=== PATIENT | female | born 1945 | race Caucasian/White ===

== ENCOUNTER 2018-11-03 11:10 | Inpatient (IN) | payer MEDICARE, OTHER ==
[~2018-11-03] VITALS: Ht 172.7 cm; Wt 136.0 kg
[2018-11-03] MEDS ORDERED: ipratropium/albuterol 3ml nebule NEB ONE (11:45)
[2018-11-03] MEDS ORDERED: levoFLOXACIN-Levaquin 750MG/D5 150 ML IV ONE (11:45)
[2018-11-03] MEDS ORDERED: methylPREDNISolone sod succ 125mg/2ml vial IV ONE (11:45)
[2018-11-03 12:17] LABS: BASOPHILS % (AUTO) 0.1 % (0-1); EOSINOPHILS % (AUTO) 0.1 % (0-6); HEMATOCRIT 34.9 % (35.0-45.0); HEMOGLOBIN 11.1 g/dl (12.0-16.0); LYMPHOCYTES # (AUTO) 0.5 X10'3 (1.1-4.8); LYMPHOCYTES % (AUTO) 5.2 % (21-51); MEAN CORPUSCULAR HEMOGLOBIN 26.8 PG (27.0-31.0); MEAN CORPUSCULAR HGB CONC 31.7 % (33.0-36.5); MEAN CORPUSCULAR VOLUME 84.6 FL (78-98); MEAN PLATELET VOLUME 7.6 FL (7.4-10.4); MONOCYTES # (AUTO) 0.2 X10'3 (0-0.9); MONOCYTES % (AUTO) 2.4 % (2-12); NEUTROPHILS # (AUTO) 8.2 X10'3 (1.8-7.7); NEUTROPHILS % (AUTO) 92.2 % (42-75); PLATELET COUNT 302 X10'3 (140-440); RED BLOOD COUNT 4.13 X10'6 (4.20-5.60); RED CELL DISTRIBUTION WIDTH 17.9 % (11.5-14.5); WHITE BLOOD COUNT 8.9 X10'3 (4.5-11.0)
[2018-11-03 12:32] LABS: ALANINE AMINOTRANSFERASE 27 U/L (12-78); ALBUMIN 3.2 G/DL (3.4-5.0); ALBUMIN/GLOBULIN RATIO 0.7 (1.1-1.5); ALKALINE PHOSPHATASE 110 IU/L (46-116); ANION GAP 12 (8-16); ASPARTATE AMINO TRANSFERASE 20 U/L (10-37); BILIRUBIN,TOTAL 1.5 MG/DL (0.1-1.0); BLOOD UREA NITROGEN 29 MG/DL (7-18); CALCIUM 8.9 MG/DL (8.5-10.1); CHLORIDE 97 MMOL/L (99-107); CREATININE 1.32 MG/DL (0.40-0.90); GLUCOSE 182 MG/DL (70-104); MAGNESIUM 1.7 MG/DL (1.5-2.4); POTASSIUM 4.4 MMOL/L (3.5-5.1); SODIUM 134 MMOL/L (135-145); TOTAL CARBON DIOXIDE 25.4 MMOL/L (24-32); TOTAL PROTEIN 8.1 G/DL (6.4-8.2); eGFR 40 ML/MIN
[2018-11-03 12:39] LABS: INR 1.2 INR; PARTIAL THROMBOPLASTIN TIME 37 SECONDS (22-32)
[2018-11-03] MEDS ORDERED: potassium Cl 20 mEq SR tablet PO PRN ×2 (13:20)
[2018-11-03] MEDS ORDERED: magnesium 4gm in 100ml NS 100 ML IV PRN (13:20)
[2018-11-03] MEDS ORDERED: acetaminophen 325mg tablet PO PRN (13:20)
[2018-11-03] MEDS ORDERED: potassium Cl 40MEQ/NS 500ml 500 ML IV PRN ×2 (13:20)
[2018-11-03] MEDS ORDERED: ondansetron/PF 4mg/2ml inj IV PRN (13:20)
[2018-11-03] MEDS ORDERED: magnesium Cl slow-release 64mg tablet PO PRN (13:20)
[2018-11-03] MEDS ORDERED: AMLODIPINE PO (13:52)
[2018-11-03] MEDS ORDERED: METF500T PO (13:53)
[2018-11-03] MEDS ORDERED: GLIP5TAB13 PO (13:55)
[2018-11-03] MEDS ORDERED: NOVALOG SQ ×2 (13:58→14:00)
[2018-11-03] MEDS ORDERED: LOSA25TA96 PO (14:01)
[2018-11-03] MEDS ORDERED: metoprolol PO (14:01)
[2018-11-03] MEDS ORDERED: provastatin PO (14:03)
[2018-11-03] MEDS ORDERED: APIX5TAB3 PO (14:03)
[2018-11-03] MEDS ORDERED: CHLO25TA2 PO (14:04)
[2018-11-03 16:05] LABS: CLARITY,URINE CLEAR (Clear); COLOR,URINE YELLOW (Yellow); GLUCOSE, URINE NEGATIVE (Neg); KETONES,URINE TRACE mg/dl (Neg); LEUKOCYTE ESTERASE ,URINE NEGATIVE (Neg); NITRITES, URINE NEGATIVE (Neg); OCCULT BLOOD,URINE NEGATIVE (Neg); PH,URINE 5.5 (4.8-8.0); PROTEIN,URINE 100 mg/dl (Neg); UROBILINOGEN,URINE 0.2 E.U/dL (0.2-1.0)
[2018-11-03 16:06] LABS: UA COLLECTION TYPE CLN CATCH MIDSTREAM
[2018-11-03 16:14] LABS: BACTERIA,URINE NONE SEEN /HPF (Neg); MUCUS STRANDS NONE SEEN /LPF (Neg); RBC,URINE 0-2 /HPF (0-2); SQUAMOUS EPITHELIAL CELL,UR FEW /LPF (FEW); WBC,URINE 0-4 /HPF (0-4)
--- NOTE | 2018-11-03 16:58 | NUR ---
Patient in room ED 11. I have received report from Cynthia MORALES in ER via phone and had the opportunity to ask questions and will assume patient care when patient arrives to the floor/ Cynthia will check patients blood sugar before bringing to the floor. .
[2018-11-03 17:30] VITALS: BP 142/75
[2018-11-03] MEDS ORDERED: dextrose ORAL solution 15 GM/59 ML bottle PO PRN (17:30)
[2018-11-03] MEDS ORDERED: dextrose 50%-water 50ml dispensing syringe IV PRN ×2 (17:30)
[2018-11-03] MEDS ORDERED: MESSAGE TO PHARMACY PO ONE (17:30)
[2018-11-03] MEDS ORDERED: glucagon, human recombinant 1mg kit SUBCUT PRN (17:30)
[2018-11-03 18:00] VITALS: BP 140/86
--- NOTE | 2018-11-03 18:41 | NUR ---
Problems reprioritized. Patient report given, questions answered & plan of care reviewed with Mera Jarrell RN.
[2018-11-03] MEDS: apixaban 5mg tablet PO SCH (19:47)
[2018-11-03] MEDS: heparin, porcine 5000 units/ml vial SQ SCH (19:49)
[2018-11-03] MEDS ORDERED: PRAVASTATIN 40 MG PO SCH (21:00)
[2018-11-03] MEDS: insulin Lispro (HumaLOG) vial - multi-dose SQ SCH (21:11)
[2018-11-03] MEDS: nystatin 15 GM powder TP SCH (21:12)
[2018-11-03] MEDS: pravastatin 40mg tablet PO SCH (21:12)
[2018-11-03] MEDS: insulin glargine (Lantus) pen - multi-dose SQ SCH (21:12)
[2018-11-03] MEDS: famotidine 20mg tablet PO SCH (21:12)
[2018-11-03] MEDS: benzocaine/menthol oral lozeng 1 EACH BOX MM PRN (22:41)
[2018-11-04] VITALS: BP 127/70
--- NOTE | 2018-11-04 00:15 | NUR ---
Pt belongings taken to safe. Receipt placed in chart. Receipt number [id number].
[2018-11-04] MEDS: benzocaine/menthol oral lozeng 1 EACH BOX MM PRN ×4 (02:09→19:19)
--- NOTE | 2018-11-04 04:30 | NUR ---
Sputum culture sent to lab.
--- NOTE | 2018-11-04 06:32 | NUR ---
Problems reprioritized. Patient report given, questions answered & plan of care reviewed with CARMEN Brown.
--- NOTE | 2018-11-04 06:40 | NUR ---
Patient in room [facility] 355. I have received report from Berta Jarrell RN and had the opportunity to ask questions and assume patient care.
[2018-11-04 07:02] LABS: BASOPHILS % (AUTO) 0 % (0-1); EOSINOPHILS # (AUTO) 0.1 X10'3 (0-0.9); EOSINOPHILS % (AUTO) 1.2 % (0-6); HEMATOCRIT 31.4 % (35.0-45.0); HEMOGLOBIN 9.9 g/dl (12.0-16.0); LYMPHOCYTES # (AUTO) 0.5 X10'3 (1.1-4.8); LYMPHOCYTES % (AUTO) 8.2 % (21-51); MEAN CORPUSCULAR HEMOGLOBIN 26.4 PG (27.0-31.0); MEAN CORPUSCULAR HGB CONC 31.6 % (33.0-36.5); MEAN CORPUSCULAR VOLUME 83.6 FL (78-98); MEAN PLATELET VOLUME 8.5 FL (7.4-10.4); MONOCYTES # (AUTO) 0.3 X10'3 (0-0.9); MONOCYTES % (AUTO) 4.1 % (2-12); NEUTROPHILS # (AUTO) 5.4 X10'3 (1.8-7.7); NEUTROPHILS % (AUTO) 86.5 % (42-75); PLATELET COUNT 278 X10'3 (140-440); RED BLOOD COUNT 3.76 X10'6 (4.20-5.60); RED CELL DISTRIBUTION WIDTH 18.5 % (11.5-14.5); WHITE BLOOD COUNT 6.3 X10'3 (4.5-11.0)
[2018-11-04 07:18] LABS: ALBUMIN 2.6 G/DL (3.4-5.0); ANION GAP 16 (8-16); BLOOD UREA NITROGEN 44 MG/DL (7-18); BUN/CREATININE RATIO 27.8 (6.6-38.0); CALCIUM 8.3 MG/DL (8.5-10.1); CHLORIDE 94 MMOL/L (99-107); CREATININE 1.58 MG/DL (0.40-0.90); GLUCOSE 286 MG/DL (70-104); POTASSIUM 4.8 MMOL/L (3.5-5.1); SODIUM 130 MMOL/L (135-145); TOTAL CARBON DIOXIDE 20.1 MMOL/L (24-32); eGFR 32 ML/MIN
[2018-11-04] MEDS: nystatin 15 GM powder TP SCH ×3 (07:58→20:33)
[2018-11-04] MEDS: metoprolol succinate 25mg (24-HOUR) SR. Tablet PO SCH (07:58)
[2018-11-04] MEDS: apixaban 5mg tablet PO SCH ×2 (07:58→20:32)
[2018-11-04 08:00] VITALS: BP 147/78
[2018-11-04] MEDS: K and/or MAG REPLACEMENT MC SCH (08:00)
[2018-11-04] MEDS ORDERED: amLODIPine 5mg tablet PO SCH (08:00)
[2018-11-04] MEDS: heparin, porcine 5000 units/ml vial SQ SCH (08:00)
[2018-11-04] MEDS ORDERED: levoFLOXACIN-Levaquin 750MG/D5 150 ML IV SCH (08:00)
[2018-11-04] MEDS ORDERED: levoFLOXACIN-Levaquin 500mg/D5 100 ML IV SCH (08:00)
[2018-11-04] MEDS ORDERED: AMLODIPINE 10 MG PO SCH (08:00)
[2018-11-04] MEDS: insulin Lispro (HumaLOG) vial - multi-dose SQ SCH ×3 (09:12→19:12)
[2018-11-04 11:00] VITALS: BP 131/65
[2018-11-04] MEDS ORDERED: levoFLOXACIN 250mg tablet PO SCH (11:00)
--- NOTE | 2018-11-04 13:50 | NUR ---
DM consult: Pt with A1c 7.4 seen at bedside. Pt states she takes her DM PO meds and insulin per rx and checks her BG levels 2 times a day and monitors her CHO intake to manage DM. Pt given written and verbal DM education with referral to outpatient DM class with RD contact information. Pt reports constipation and requests prune juice with breakfast tray tomorrow, d/w dietary. All patient's questions answered at this time. Will remain available. Addendum: 11/04/18 at [address] Amended: Links added.
[2018-11-04] MEDS ORDERED: furosemide 20 MG/2 ML vial IV ONE (18:05)
--- NOTE | 2018-11-04 18:22 | NUR ---
Problems reprioritized. Patient report given, questions answered & plan of care reviewed with CARMEN Patricio.
--- NOTE | 2018-11-04 18:23 | NUR ---
Patient in room [facility] 355. I have received report from MARJORIE MORALES and had the opportunity to ask questions and assume patient care.
[2018-11-04 19:00] VITALS: BP 126/79
[2018-11-04] MEDS ORDERED: magnesium hydroxide 30ml (MOM) UD suspension PO ONE (19:25)
[2018-11-04] MEDS: pravastatin 40mg tablet PO SCH (20:32)
[2018-11-04] MEDS: famotidine 20mg tablet PO SCH (20:33)
[2018-11-04] MEDS: insulin glargine (Lantus) pen - multi-dose SQ SCH (21:24)
[2018-11-04] MEDS: dextrose ORAL solution 15 GM/59 ML bottle PO PRN (22:47)
--- NOTE | 2018-11-04 22:47 | NUR ---
ACCU CHECK DONE PER REQUEST 59, GLUCOSE SHOT 15 GM GIVEN.
--- NOTE | 2018-11-04 23:01 | NUR ---
ACCU CHECK 85.
--- NOTE | 2018-11-04 23:49 | NUR ---
ACCU CHECK PER REQUEST 105.
[2018-11-05] VITALS: BP 126/67
[2018-11-05 05:35] LABS: BASOPHILS % (AUTO) 0.2 % (0-1); EOSINOPHILS # (AUTO) 0.2 X10'3 (0-0.9); EOSINOPHILS % (AUTO) 2.1 % (0-6); HEMOGLOBIN 9.4 g/dl (12.0-16.0); LYMPHOCYTES % (AUTO) 11.1 % (21-51); MEAN CORPUSCULAR HEMOGLOBIN 26.3 PG (27.0-31.0); MEAN CORPUSCULAR HGB CONC 31.4 % (33.0-36.5); MEAN CORPUSCULAR VOLUME 83.6 FL (78-98); MEAN PLATELET VOLUME 7.7 FL (7.4-10.4); MONOCYTES # (AUTO) 0.7 X10'3 (0-0.9); MONOCYTES % (AUTO) 7.7 % (2-12); NEUTROPHILS # (AUTO) 6.8 X10'3 (1.8-7.7); NEUTROPHILS % (AUTO) 78.9 % (42-75); PLATELET COUNT 283 X10'3 (140-440); RED BLOOD COUNT 3.58 X10'6 (4.20-5.60); RED CELL DISTRIBUTION WIDTH 18.4 % (11.5-14.5); WHITE BLOOD COUNT 8.6 X10'3 (4.5-11.0)
[2018-11-05 05:40] LABS: ALBUMIN 2.6 G/DL (3.4-5.0); ANION GAP 9 (8-16); BLOOD UREA NITROGEN 58 MG/DL (7-18); BUN/CREATININE RATIO 34.7 (6.6-38.0); CALCIUM 8.2 MG/DL (8.5-10.1); CHLORIDE 96 MMOL/L (99-107); CREATININE 1.67 MG/DL (0.40-0.90); GLUCOSE 100 MG/DL (70-104); MAGNESIUM 2.1 MG/DL (1.5-2.4); POTASSIUM 3.7 MMOL/L (3.5-5.1); SODIUM 130 MMOL/L (135-145); TOTAL CARBON DIOXIDE 24.7 MMOL/L (24-32); TROPONIN I < 0.04 NG/ML (0.0-0.05); eGFR 30 ML/MIN
--- NOTE | 2018-11-05 06:26 | NUR ---
Problems reprioritized. Patient report given, questions answered & plan of care reviewed with ARMAAN MORALES.
--- NOTE | 2018-11-05 06:34 | NUR ---
Patient in room [facility] 355. I have received report from Sheng MORALES and had the opportunity to ask questions and assume patient care.
[2018-11-05 07:00] VITALS: BP 138/74
[2018-11-05] MEDS: K and/or MAG REPLACEMENT MC SCH (08:00)
[2018-11-05] MEDS ORDERED: furosemide 20 MG/2 ML vial IV SCH (08:00)
[2018-11-05] MEDS: metoprolol succinate 25mg (24-HOUR) SR. Tablet PO SCH (08:57)
[2018-11-05] MEDS: nystatin 15 GM powder TP SCH ×3 (08:58→20:50)
[2018-11-05] MEDS: apixaban 5mg tablet PO SCH ×2 (08:58→19:48)
[2018-11-05] MEDS: insulin Lispro (HumaLOG) vial - multi-dose SQ SCH ×2 (09:08→13:47)
[2018-11-05 11:00] VITALS: BP 123/65
--- NOTE | 2018-11-05 11:25 | NUR ---
Patient requested her blood sugar to be check - blood sugar was 211 mg/dl when checked. Patient admitted that she is kind of stressed out with her being sick. She told me that her is in this hospital emergency room and wish to get an update about her 's condition. I discussed this with the charge nurse Leyla, she said patient can call the emergency room to speak to the nurse and get an update - this message was relayed to the patient. Bedside phone was provided to the patient
[2018-11-05] MEDS: azithromycin 250mg tablet PO SCH (12:36)
[2018-11-05] MEDS ORDERED: ipratropium/albuterol 3ml nebule NEB PRN (15:40)
--- NOTE | 2018-11-05 16:04 | NUR ---
Patient in room [facility] 355. I have received report from CARMEN Grijalva and had the opportunity to ask questions and assume patient care.
--- NOTE | 2018-11-05 16:16 | NUR ---
Problems reprioritized. Patient report given, questions answered & plan of care reviewed with Radha RN.
[2018-11-05 17:14] LABS: CLARITY,URINE CLEAR (Clear); COLOR,URINE STRAW (Yellow); GLUCOSE, URINE NEGATIVE (Neg); KETONES,URINE NEGATIVE (Neg); LEUKOCYTE ESTERASE ,URINE NEGATIVE (Neg); NITRITES, URINE NEGATIVE (Neg); OCCULT BLOOD,URINE TRACE-LYSED (Neg); PH,URINE 5.5 (4.8-8.0); PROTEIN,URINE NEGATIVE (Neg); UROBILINOGEN,URINE 0.2 E.U/dL (0.2-1.0)
[2018-11-05 17:19] LABS: UA COLLECTION TYPE NON-SPECIFIED
[2018-11-05 17:20] LABS: SODIUM,URINE RANDOM 40 MEQ/L
[2018-11-05 17:21] LABS: BACTERIA,URINE NONE SEEN /HPF (Neg); RBC,URINE NONE SEEN /HPF (0-2); SQUAMOUS EPITHELIAL CELL,UR FEW /LPF (FEW); WBC,URINE NONE SEEN /HPF (0-4)
[2018-11-05 17:24] LABS: TOTAL PROTEIN,URINE RANDOM < 6.0 MG/DL
[2018-11-05] MEDS: dextrose ORAL solution 15 GM/59 ML bottle PO PRN (17:24)
[2018-11-05 17:41] LABS: UA EOSINOPHILS NO EOS /HPF
[2018-11-05 18:00] VITALS: BP 137/70
--- NOTE | 2018-11-05 18:15 | NUR ---
Problems reprioritized. Patient report given, questions answered & plan of care reviewed with CARMEN Connolly.
--- NOTE | 2018-11-05 18:30 | NUR ---
Patient in room [facility] 355. I have received report from Radha MORALES and had the opportunity to ask questions and assume patient care. Pt eating dinner, comfortable and in no distress.
[2018-11-05] MEDS: lactobacillus rhamnosus 10,000 MMU CELLS/CAPSULE PO SCH (19:48)
[2018-11-05] MEDS: ipratropium/albuterol 3ml nebule NEB SCH (20:30)
[2018-11-05] MEDS: insulin glargine (Lantus) pen - multi-dose SQ SCH (20:49)
[2018-11-05] MEDS: famotidine 20mg tablet PO SCH (20:50)
[2018-11-05] MEDS: pravastatin 40mg tablet PO SCH (20:50)
[2018-11-06] VITALS: BP 146/79
[2018-11-06] MEDS: benzocaine/menthol oral lozeng 1 EACH BOX MM PRN ×2 (01:29→23:34)
[2018-11-06 06:24] LABS: ALBUMIN 2.6 G/DL (3.4-5.0); ANION GAP 9 (8-16); BLOOD UREA NITROGEN 47 MG/DL (7-18); BUN/CREATININE RATIO 31.3 (6.6-38.0); CALCIUM 8.3 MG/DL (8.5-10.1); CHLORIDE 97 MMOL/L (99-107); GLUCOSE 188 MG/DL (70-104); MAGNESIUM 2.2 MG/DL (1.5-2.4); POTASSIUM 3.4 MMOL/L (3.5-5.1); SODIUM 135 MMOL/L (135-145); TOTAL CARBON DIOXIDE 28.6 MMOL/L (24-32); eGFR 34 ML/MIN
[2018-11-06 06:29] LABS: BASOPHILS % (AUTO) 0.3 % (0-1); EOSINOPHILS # (AUTO) 0.2 X10'3 (0-0.9); EOSINOPHILS % (AUTO) 2.6 % (0-6); HEMATOCRIT 30.9 % (35.0-45.0); HEMOGLOBIN 9.9 g/dl (12.0-16.0); LYMPHOCYTES % (AUTO) 14.6 % (21-51); MEAN CORPUSCULAR HEMOGLOBIN 26.6 PG (27.0-31.0); MEAN CORPUSCULAR HGB CONC 31.9 % (33.0-36.5); MEAN CORPUSCULAR VOLUME 83.4 FL (78-98); MEAN PLATELET VOLUME 7.9 FL (7.4-10.4); MONOCYTES # (AUTO) 0.7 X10'3 (0-0.9); MONOCYTES % (AUTO) 9.4 % (2-12); NEUTROPHILS # (AUTO) 5.2 X10'3 (1.8-7.7); NEUTROPHILS % (AUTO) 73.1 % (42-75); PLATELET COUNT 303 X10'3 (140-440); RED CELL DISTRIBUTION WIDTH 18.1 % (11.5-14.5); WHITE BLOOD COUNT 7.1 X10'3 (4.5-11.0)
--- NOTE | 2018-11-06 06:29 | NUR ---
Problems reprioritized. Patient report given, questions answered & plan of care reviewed with Angi MORALES.
--- NOTE | 2018-11-06 06:45 | NUR ---
Patient in room [facility] 355. I have received report from CARMEN Connolly and had the opportunity to ask questions and assume patient care. Pt. sleeping currently and in no apparent distress. Items of frequent use in reach of pt.
[2018-11-06 07:00] VITALS: BP 151/82
[2018-11-06] MEDS: K and/or MAG REPLACEMENT MC SCH (08:00)
[2018-11-06] MEDS: ipratropium/albuterol 3ml nebule NEB SCH ×3 (08:29→20:16)
[2018-11-06] MEDS: insulin Lispro (HumaLOG) vial - multi-dose SQ SCH ×3 (08:35→18:52)
[2018-11-06] MEDS: lactobacillus rhamnosus 10,000 MMU CELLS/CAPSULE PO SCH ×2 (08:39→20:10)
[2018-11-06] MEDS: apixaban 5mg tablet PO SCH ×2 (08:40→20:10)
[2018-11-06] MEDS: nystatin 15 GM powder TP SCH ×3 (08:41→20:10)
[2018-11-06] MEDS: metoprolol succinate 25mg (24-HOUR) SR. Tablet PO SCH (08:41)
[2018-11-06] MEDS: azithromycin 250mg tablet PO SCH (11:10)
[2018-11-06 11:30] VITALS: BP 138/76
[2018-11-06] MEDS ORDERED: magnesium Cl slow-release 64mg tablet PO PRN (13:50)
[2018-11-06] MEDS ORDERED: potassium Cl 40MEQ/NS 500ml 500 ML IV PRN ×2 (13:50)
[2018-11-06] MEDS ORDERED: magnesium 4gm in 100ml NS 100 ML IV PRN (13:50)
[2018-11-06] MEDS ORDERED: potassium Cl 20 mEq SR tablet PO PRN (13:50)
[2018-11-06] MEDS: potassium Cl 20 mEq SR tablet PO PRN ×2 (14:12→18:49)
[2018-11-06 18:00] VITALS: BP 130/70
--- NOTE | 2018-11-06 18:34 | NUR ---
Patient in room [facility] 355. I have received report from Angi MORALES and had the opportunity to ask questions and assume patient care. Patient comfortably watching TV, in no distress.
--- NOTE | 2018-11-06 18:35 | NUR ---
Problems reprioritized. Patient report given, questions answered & plan of care reviewed with CARMEN Connolly. Patient sitting up at side of bed and just finished eating dinner. Patient alert, oriented, and in no apparent distress at this time. Items of frequent use in reach of patient including call light.
[2018-11-06] MEDS: pravastatin 40mg tablet PO SCH (20:10)
[2018-11-06] MEDS: famotidine 20mg tablet PO SCH (20:10)
[2018-11-06] MEDS: insulin glargine (Lantus) pen - multi-dose SQ SCH (21:11)
[2018-11-07] VITALS: BP 142/86
--- NOTE | 2018-11-07 06:12 | NUR ---
Problems reprioritized. Patient report given, questions answered & plan of care reviewed with Angi MORALES.
[2018-11-07 06:20] LABS: BASOPHILS % (AUTO) 0.3 % (0-1); EOSINOPHILS # (AUTO) 0.2 X10'3 (0-0.9); EOSINOPHILS % (AUTO) 2.9 % (0-6); HEMATOCRIT 31.1 % (35.0-45.0); HEMOGLOBIN 9.9 g/dl (12.0-16.0); LYMPHOCYTES # (AUTO) 1.2 X10'3 (1.1-4.8); LYMPHOCYTES % (AUTO) 18.6 % (21-51); MEAN CORPUSCULAR HEMOGLOBIN 26.7 PG (27.0-31.0); MEAN CORPUSCULAR HGB CONC 31.8 % (33.0-36.5); MEAN CORPUSCULAR VOLUME 83.8 FL (78-98); MEAN PLATELET VOLUME 7.8 FL (7.4-10.4); MONOCYTES # (AUTO) 0.5 X10'3 (0-0.9); MONOCYTES % (AUTO) 8.5 % (2-12); NEUTROPHILS # (AUTO) 4.3 X10'3 (1.8-7.7); NEUTROPHILS % (AUTO) 69.7 % (42-75); PLATELET COUNT 305 X10'3 (140-440); RED BLOOD COUNT 3.72 X10'6 (4.20-5.60); RED CELL DISTRIBUTION WIDTH 18.2 % (11.5-14.5); WHITE BLOOD COUNT 6.2 X10'3 (4.5-11.0)
--- NOTE | 2018-11-07 06:30 | NUR ---
Patient in room [facility] 355. I have received report from CARMEN Connolly and had the opportunity to ask questions and assume patient care. Patient resting comfortably at this time. Items of frequent use including call light are in reach of the patient.
[2018-11-07 06:34] LABS: ALBUMIN 2.7 G/DL (3.4-5.0); ANION GAP 9 (8-16); BLOOD UREA NITROGEN 38 MG/DL (7-18); BUN/CREATININE RATIO 29.2 (6.6-38.0); CALCIUM 8.9 MG/DL (8.5-10.1); CHLORIDE 102 MMOL/L (99-107); GLUCOSE 206 MG/DL (70-104); MAGNESIUM 2.1 MG/DL (1.5-2.4); POTASSIUM 3.6 MMOL/L (3.5-5.1); SODIUM 140 MMOL/L (135-145); TOTAL CARBON DIOXIDE 29.3 MMOL/L (24-32); eGFR 40 ML/MIN
[2018-11-07 07:02] VITALS: BP 154/69
[2018-11-07] MEDS: K and/or MAG REPLACEMENT MC SCH (08:00)
--- NOTE | 2018-11-07 08:45 | NUR ---
Sugar of 203 at 0700 qualifies patient to be bumped to a level 4. However, in the past patient has dropped drastically with large amounts of insulin. Patient will be treated as a level 3 instead this morning.
[2018-11-07] MEDS: insulin Lispro (HumaLOG) vial - multi-dose SQ SCH ×2 (08:50→18:50)
[2018-11-07] MEDS: apixaban 5mg tablet PO SCH ×2 (08:52→20:10)
[2018-11-07] MEDS: lactobacillus rhamnosus 10,000 MMU CELLS/CAPSULE PO SCH ×2 (08:52→20:10)
[2018-11-07] MEDS: nystatin 15 GM powder TP SCH ×3 (08:53→21:04)
[2018-11-07] MEDS: metoprolol succinate 25mg (24-HOUR) SR. Tablet PO SCH (08:53)
[2018-11-07] MEDS: ipratropium/albuterol 3ml nebule NEB SCH ×3 (09:00→20:29)
--- NOTE | 2018-11-07 09:59 | NUR ---
Patient desaturates with exertion. Patient walked to bathroom without oxygen and oxygen saturation went from 97% to 82%. 1L of O2 via NC was applied and saturation went back up to 95%. Patient needs 1L NC when moving around.
[2018-11-07 10:57] VITALS: BP 143/76
[2018-11-07] MEDS ORDERED: magnesium hydroxide 30ml (MOM) UD suspension PO ONE (11:15)
--- NOTE | 2018-11-07 12:00 | NUR ---
Patients 1200 blood glucose was 57 on the left hand and 59 on the right hand. A 15 g Glucose shot was given at 12:15 and blood sugar was rechecked at 12:30 and came up to 86. Patient is now moved from a level 3 back down to a level 1.
[2018-11-07] MEDS: azithromycin 250mg tablet PO SCH (12:04)
[2018-11-07] MEDS: dextrose ORAL solution 15 GM/59 ML bottle PO PRN (12:14)
--- NOTE | 2018-11-07 12:35 | NUR ---
Initial: Pt admitted with SOB, possible acute CHF exacerbation per MD notes. S/p chest x-ray that shows pulmonary vascular congestion and pulmonary edema, small bilateral pleural effusion per MD notes. Pt also s/p IV diuresis IV Lasix per MD notes. No new documented wt to assess at this time. Pt currently on heart healthy CHO controlled diet with documented PO intake 100% meeting nutrient needs. LBM 11/03, MoM just given 11/07. Per physical assessment pt denies GI symptoms. Will continue to follow and monitor need for additional bowel care. Recommendations: 1) Continue with heart healthy CHO controlled diet 2) Monitor need for additional bowel care 3) Wt per rx Addendum: 11/07/18 at [address] Amended: Links added.
--- NOTE | 2018-11-07 14:01 | NUR ---
Patient blood glucose check of 86 after dropping and being treated for hypoglycemia and patient is now a level 1. Patient ate 65 grams of carbs at lunch and this would qualify her for 4 units of insulin. Insulin will be held due to an earlier drop of sugar from 203 to 57. Will recheck sugar at 1700.
[2018-11-07 18:00] VITALS: BP 159/87
--- NOTE | 2018-11-07 18:27 | NUR ---
Problems reprioritized. Patient report given, questions answered & plan of care reviewed with CARMEN Connolly. Patient sitting up in bed eating dinner. Patient is alert, oriented and in no apparent distress at this time.
--- NOTE | 2018-11-07 18:30 | NUR ---
Patient in room [facility] 355. I have received report from Angi MORALES and had the opportunity to ask questions and assume patient care. Patient sitting up in bed eating dinner, respirations even and unlabored, in no distress.
[2018-11-07] MEDS: pravastatin 40mg tablet PO SCH (20:10)
[2018-11-07] MEDS: famotidine 20mg tablet PO SCH (20:10)
[2018-11-07] MEDS: insulin glargine (Lantus) pen - multi-dose SQ SCH (21:03)
[2018-11-07] MEDS: benzocaine/menthol oral lozeng 1 EACH BOX MM PRN (23:32)
--- NOTE | 2018-11-07 23:37 | NUR ---
Patient complaining of dry nose due to oxygen therapy. Oxygen already humidified, [place] Jelly applied to nares. Patient stated it felt much better.
[2018-11-08] VITALS: BP 156/74
[2018-11-08 05:41] LABS: BASOPHILS % (AUTO) 0.4 % (0-1); EOSINOPHILS # (AUTO) 0.2 X10'3 (0-0.9); EOSINOPHILS % (AUTO) 2.4 % (0-6); HEMATOCRIT 32.6 % (35.0-45.0); HEMOGLOBIN 10.6 g/dl (12.0-16.0); LYMPHOCYTES # (AUTO) 1.2 X10'3 (1.1-4.8); LYMPHOCYTES % (AUTO) 17.4 % (21-51); MEAN CORPUSCULAR HEMOGLOBIN 27.7 PG (27.0-31.0); MEAN CORPUSCULAR HGB CONC 32.4 % (33.0-36.5); MEAN CORPUSCULAR VOLUME 85.4 FL (78-98); MEAN PLATELET VOLUME 7.9 FL (7.4-10.4); MONOCYTES # (AUTO) 0.5 X10'3 (0-0.9); MONOCYTES % (AUTO) 7.3 % (2-12); NEUTROPHILS % (AUTO) 72.5 % (42-75); PLATELET COUNT 310 X10'3 (140-440); RED BLOOD COUNT 3.82 X10'6 (4.20-5.60); RED CELL DISTRIBUTION WIDTH 17.5 % (11.5-14.5); WHITE BLOOD COUNT 6.9 X10'3 (4.5-11.0)
[2018-11-08 05:49] LABS: ALBUMIN 2.7 G/DL (3.4-5.0); ANION GAP 7 (8-16); BLOOD UREA NITROGEN 29 MG/DL (7-18); CALCIUM 8.6 MG/DL (8.5-10.1); CHLORIDE 103 MMOL/L (99-107); CREATININE 1.21 MG/DL (0.40-0.90); GLUCOSE 198 MG/DL (70-104); MAGNESIUM 2.2 MG/DL (1.5-2.4); POTASSIUM 3.8 MMOL/L (3.5-5.1); SODIUM 140 MMOL/L (135-145); TOTAL CARBON DIOXIDE 30.5 MMOL/L (24-32); eGFR 44 ML/MIN
--- NOTE | 2018-11-08 06:22 | NUR ---
Problems reprioritized. Patient report given, questions answered & plan of care reviewed with Leyla MORALES.
--- NOTE | 2018-11-08 06:23 | NUR ---
Patient in room [facility] 355. I have received report from CARMEN Connolly and had the opportunity to ask questions and assume patient care.
[2018-11-08 07:00] VITALS: BP 126/84
[2018-11-08] MEDS: ipratropium/albuterol 3ml nebule NEB SCH (07:45)
[2018-11-08] MEDS: K and/or MAG REPLACEMENT MC SCH (08:00)
[2018-11-08] MEDS: apixaban 5mg tablet PO SCH (08:39)
[2018-11-08] MEDS: metoprolol succinate 25mg (24-HOUR) SR. Tablet PO SCH (08:39)
[2018-11-08] MEDS: nystatin 15 GM powder TP SCH ×2 (08:40→14:12)
[2018-11-08] MEDS: lactobacillus rhamnosus 10,000 MMU CELLS/CAPSULE PO SCH (08:40)
[2018-11-08] MEDS: insulin Lispro (HumaLOG) vial - multi-dose SQ SCH ×2 (08:46→14:16)
[2018-11-08 11:00] VITALS: BP 146/86
[2018-11-08] MEDS: azithromycin 250mg tablet PO SCH (11:22)
[2018-11-08] MEDS: benzocaine/menthol oral lozeng 1 EACH BOX MM PRN ×2 (11:24→18:41)
--- NOTE | 2018-11-08 11:55 | NUR ---
O2 Sat at rest on room air:_86__% If below 89%: Recovery O2 Sat at rest on _1__LPM:__92_%: via___NC (mask/nasal cannula, etc..) No further documentation is necessary. If O2 Sat did not drop below 89% on room air,ambulate patient on room air. O2 Sat while ambulating on room air:___% Recovery O2 Sat while ambulating on ___LPM:___% No further documentation is necessary. If patient does not drop below 89% while ambulating, he/she does not qualify for home O2.
[2018-11-08] MEDS ORDERED: AZI25OT PO (16:25)
--- NOTE | 2018-11-08 17:00 | NUR ---
Pt accompanied by friend awaiting to be taken down by WC to car. Reviewed DC instructions with patient, telemetry box removed, IV had previously been removed on day shift. Reviewed belongings with patient, all in possesion except wallet which had been checked into safe. Nurses aid to take pt to get wallet prior to wheeling out to car. Patient also had new O2 delivery system at her side. Patient A&O, safe for discharge.
== END 2018-11-08 19:22 | disposition home or self-care (01) | DRG 682 ==
LOC: ER 11:11 → ED HOLD 13:24 → SUR 3N 17:14
PROVIDERS: ADMIT Internal Medicine; ATTEND Family Medicine
DX: N17.9 Acute kidney failure, unspecified (principal); J18.9 Pneumonia, unspecified organism; J96.01 Acute respiratory failure with hypoxia; I50.23 Acute on chronic systolic (congestive) heart failure; I13.0 Hypertensive heart and chronic kidney disease with heart failure and stage 1 through stage 4 chronic kidney disease, or unspecified chronic kidney disease; Z68.42 Body mass index [BMI] 45.0-49.9, adult; J81.1 Chronic pulmonary edema; J20.9 Acute bronchitis, unspecified; E11.22 Type 2 diabetes mellitus with diabetic chronic kidney disease; N18.9 Chronic kidney disease, unspecified; E66.01 Morbid (severe) obesity due to excess calories; E78.5 Hyperlipidemia, unspecified; I48.2 Chronic atrial fibrillation; Z79.899 Other long term (current) drug therapy; Z79.01 Long term (current) use of anticoagulants; Z87.891 Personal history of nicotine dependence; Z85.038 Personal history of other malignant neoplasm of large intestine
CPT/HCPCS: 36415; 71046; 76775; 80048; 80053; 81001; 82570; 82948; 83036; 83605; 83735; 83880; 84145; 84156; 84300; 84484; 85025; 85610; 85730; 87040; 87070; 87207; 87502; 87503; 93005; 93306; 94640; 94760; 96365; 96375; 99285; G0378; J1644; J1815; J1940; J1956; J2930

== ENCOUNTER 2018-12-04 12:49 | Inpatient (IN) | payer MEDICARE, OTHER ==
[~2018-12-04] VITALS: Ht 172.7 cm; Wt 137.6 kg
[~2018-12-04 12:49] MED LIST: AMLODIPINE PO; APIX5TAB3 PO; AZI25OT PO; GLIP5TAB13 PO; LOSA25TA96 PO; METF500T PO; NOVALOG SQ; metoprolol PO; provastatin PO
[2018-12-04 13:55] LABS: ALANINE AMINOTRANSFERASE 30 U/L (12-78); ALBUMIN 3.1 G/DL (3.4-5.0); ALBUMIN/GLOBULIN RATIO 0.7 (1.1-1.5); ALKALINE PHOSPHATASE 98 IU/L (46-116); ANION GAP 9 (8-16); ASPARTATE AMINO TRANSFERASE 20 U/L (10-37); BILIRUBIN,TOTAL 1.3 MG/DL (0.1-1.0); BLOOD UREA NITROGEN 34 MG/DL (7-18); BUN/CREATININE RATIO 25.4 (6.6-38.0); CALCIUM 9.2 MG/DL (8.5-10.1); CHLORIDE 103 MMOL/L (99-107); CREATININE 1.34 MG/DL (0.40-0.90); GLUCOSE 181 MG/DL (70-104); SODIUM 139 MMOL/L (135-145); TOTAL CARBON DIOXIDE 27.4 MMOL/L (24-32); TOTAL PROTEIN 7.6 G/DL (6.4-8.2); eGFR 39 ML/MIN
[2018-12-04 13:58] LABS: BASOPHILS % (AUTO) 0.5 % (0-1); EOSINOPHILS # (AUTO) 0.2 X10'3 (0-0.9); EOSINOPHILS % (AUTO) 2.1 % (0-6); HEMATOCRIT 33.2 % (35.0-45.0); HEMOGLOBIN 10.7 g/dl (12.0-16.0); LYMPHOCYTES % (AUTO) 10.1 % (21-51); MEAN CORPUSCULAR HEMOGLOBIN 27.2 PG (27.0-31.0); MEAN CORPUSCULAR HGB CONC 32.3 g/dL (33.0-36.5); MEAN CORPUSCULAR VOLUME 84.3 FL (78-98); MEAN PLATELET VOLUME 7.8 FL (7.4-10.4); MONOCYTES # (AUTO) 0.4 X10'3 (0-0.9); MONOCYTES % (AUTO) 4.1 % (2-12); NEUTROPHILS # (AUTO) 7.8 X10'3 (1.8-7.7); NEUTROPHILS % (AUTO) 83.2 % (42-75); PLATELET COUNT 332 X10'3 (140-440); RED BLOOD COUNT 3.94 X10'6 (4.20-5.60); RED CELL DISTRIBUTION WIDTH 18.8 % (11.5-14.5); WHITE BLOOD COUNT 9.4 X10'3 (4.5-11.0)
[2018-12-04] MEDS ORDERED: ipratropium/albuterol 3ml nebule NEB ONE (14:40)
[2018-12-04 15:04] LABS: INR 1.2 INR
[2018-12-04] MEDS ORDERED: METO-411 PO (15:38)
[2018-12-04] MEDS ORDERED: INSU10VI SQ ×2 (15:38)
[2018-12-04] MEDS ORDERED: AMLO-317 PO (15:39)
[2018-12-04] MEDS ORDERED: PRAV40TA3 PO (15:39)
[2018-12-04] MEDS ORDERED: LOSA100T57 PO (15:39)
[2018-12-04] MEDS ORDERED: METF-438 PO (15:39)
[2018-12-04] MEDS ORDERED: APIX5TAB3 PO (15:41)
[2018-12-04] MEDS ORDERED: GLIP5TAB13 PO (15:41)
[2018-12-04] MEDS ORDERED: furosemide 10 MG/1 ML 10ml inj IV ONE (16:00)
[2018-12-04] MEDS ORDERED: ipratropium/albuterol 3ml nebule NEB PRN (17:10)
[2018-12-04] MEDS ORDERED: MESSAGE TO PHARMACY PO ONE (17:10)
[2018-12-04] MEDS ORDERED: magnesium Cl slow-release 64mg tablet PO PRN (17:10)
[2018-12-04] MEDS ORDERED: magnesium 4gm in 100ml NS 100 ML IV PRN (17:10)
[2018-12-04] MEDS ORDERED: HYDROcodone/acetaminophen 5mg/325mg tablet PO PRN (17:10)
[2018-12-04] MEDS ORDERED: ondansetron/PF 4mg/2ml inj IV PRN (17:10)
[2018-12-04] MEDS ORDERED: HYDROcodone/acetaminophen 10/325mg tab PO PRN (17:10)
[2018-12-04] MEDS ORDERED: glucagon, human recombinant 1mg kit SUBCUT PRN (17:10)
[2018-12-04] MEDS ORDERED: potassium Cl 20 mEq SR tablet PO PRN ×2 (17:10)
[2018-12-04] MEDS ORDERED: dextrose 50%-water 50ml dispensing syringe IV PRN ×2 (17:10)
[2018-12-04] MEDS ORDERED: magnesium 2GM in 50ml NS 50 ML IV PRN (17:10)
[2018-12-04] MEDS ORDERED: acetaminophen 325mg tablet PO PRN ×2 (17:10)
[2018-12-04] MEDS ORDERED: mag hydrox/Alum hydrox/simeth 30ml oral suspension PO PRN (17:10)
[2018-12-04] MEDS ORDERED: potassium Cl 40MEQ/NS 500ml 500 ML IV PRN ×2 (17:10)
[2018-12-04] MEDS ORDERED: dextrose ORAL solution 15 GM/59 ML bottle PO PRN (17:10)
[2018-12-04 18:57] VITALS: BP 144/91
--- NOTE | 2018-12-04 19:00 | NUR ---
Pt arrived to floor. Walked to bed from hallway with cane and portable O2. VSS, no distress, resp even and unlabored.
[2018-12-04] MEDS: furosemide 20 MG/2 ML vial IV SCH (20:00)
[2018-12-04] MEDS ORDERED: LOSA25TA96 PO (20:47)
[2018-12-04] MEDS ORDERED: apixaban 5mg tablet PO ONE (21:00)
[2018-12-04] MEDS: insulin glargine (Lantus) pen - multi-dose SQ SCH (21:00)
[2018-12-04 22:00] VITALS: BP 152/81
[2018-12-04] MEDS: BUDESONIDE 0.25 MG/2 ML AMPUL.NEB IH SCH (22:07)
[2018-12-04] MEDS: ipratropium/albuterol 3ml nebule NEB SCH (22:08)
[2018-12-04] MEDS: pravastatin 40mg tablet PO SCH (22:59)
--- NOTE | 2018-12-04 23:32 | NUR ---
provided humidified air for pt per request.
[2018-12-05] MEDS: ipratropium/albuterol 3ml nebule NEB SCH ×7 (00:16→23:25)
[2018-12-05 02:00] VITALS: BP 144/78
[2018-12-05 02:46] LABS: BASOPHILS % (AUTO) 0.3 % (0-1); EOSINOPHILS # (AUTO) 0.2 X10'3 (0-0.9); EOSINOPHILS % (AUTO) 2.7 % (0-6); HEMATOCRIT 30.5 % (35.0-45.0); HEMOGLOBIN 9.8 g/dl (12.0-16.0); LYMPHOCYTES # (AUTO) 1.2 X10'3 (1.1-4.8); LYMPHOCYTES % (AUTO) 12.8 % (21-51); MEAN CORPUSCULAR HEMOGLOBIN 27.1 PG (27.0-31.0); MEAN CORPUSCULAR HGB CONC 32.2 g/dL (33.0-36.5); MEAN CORPUSCULAR VOLUME 84.2 FL (78-98); MEAN PLATELET VOLUME 7.9 FL (7.4-10.4); MONOCYTES # (AUTO) 0.4 X10'3 (0-0.9); MONOCYTES % (AUTO) 4.9 % (2-12); NEUTROPHILS # (AUTO) 7.2 X10'3 (1.8-7.7); NEUTROPHILS % (AUTO) 79.3 % (42-75); PLATELET COUNT 282 X10'3 (140-440); RED BLOOD COUNT 3.62 X10'6 (4.20-5.60); RED CELL DISTRIBUTION WIDTH 18.5 % (11.5-14.5); WHITE BLOOD COUNT 9.1 X10'3 (4.5-11.0)
[2018-12-05 03:02] LABS: ALBUMIN 2.9 G/DL (3.4-5.0); ANION GAP 11 (8-16); BLOOD UREA NITROGEN 34 MG/DL (7-18); BUN/CREATININE RATIO 23.6 (6.6-38.0); CALCIUM 8.9 MG/DL (8.5-10.1); CHLORIDE 102 MMOL/L (99-107); CREATININE 1.44 MG/DL (0.40-0.90); GLUCOSE 233 MG/DL (70-104); MAGNESIUM 1.8 MG/DL (1.5-2.4); SODIUM 139 MMOL/L (135-145); TOTAL CARBON DIOXIDE 25.6 MMOL/L (24-32); eGFR 36 ML/MIN
[2018-12-05 06:00] VITALS: BP 133/65
--- NOTE | 2018-12-05 06:15 | NUR ---
Problems reprioritized. Patient report given, questions answered & plan of care reviewed with CARMEN Daniels.
--- NOTE | 2018-12-05 06:24 | NUR ---
Patient in room PCU 3018. I have received report from Berta MORALES and had the opportunity to ask questions and assume patient care. Pt is alert and oriented X4, on 2L NC, in no apparent distress, will continue to monitor.
[2018-12-05] MEDS: furosemide 20 MG/2 ML vial IV SCH ×2 (07:20→19:25)
[2018-12-05] MEDS: apixaban 5mg tablet PO SCH ×2 (07:23→19:25)
[2018-12-05] MEDS: metoprolol succinate 25mg (24-HOUR) SR. Tablet PO SCH (07:25)
[2018-12-05] MEDS: K and/or MAG REPLACEMENT MC SCH (08:00)
[2018-12-05] MEDS ORDERED: amLODIPine 5mg tablet PO SCH (08:00)
--- NOTE | 2018-12-05 08:04 | NUR ---
PAGER ID: [phone] MESSAGE: [id number] Liberty Goss Pt condition change. HR 117-130's in a-fib, SPO2% drops to low 80's, please call Frances #[phone] Addendum: 12/05/18 at 0814 by Frances Cabrera RN Dr. Page called back, new order Metoprolol 5 mg IV push PRN q4h for HR > 110. However, he would like me to wait and see if HR will lower, considering she was just given her morning meds. Will continue to monitor. Addendum: 12/05/18 at 0932 by Frances Cabrera RN HR is now trending 100 to 104, in no apparent distress, will continue to monitor.
[2018-12-05] MEDS: BUDESONIDE 0.25 MG/2 ML AMPUL.NEB IH SCH ×2 (09:00→19:57)
[2018-12-05] MEDS: insulin Lispro (HumaLOG) vial - multi-dose SQ SCH ×4 (09:28→22:00)
[2018-12-05 11:52] VITALS: BP 127/71
[2018-12-05] MEDS: metoprolol tartrate 1mg/ml inj IV PRN ×2 (13:12→19:51)
[2018-12-05 15:00] VITALS: BP 128/83
--- NOTE | 2018-12-05 18:26 | NUR ---
Problems reprioritized. Patient report given, questions answered & plan of care reviewed with Tracee MORALES.
--- NOTE | 2018-12-05 18:41 | NUR ---
Student documentation: I have reviewed and agree with all interventions, assessments performed and documented by Kanika MORALES with the exception of the edits.
[2018-12-05 19:00] VITALS: BP 117/81
--- NOTE | 2018-12-05 19:09 | NUR ---
Patient in room PCU 3018. I have received report from sb rangel and had the opportunity to ask questions and assume patient care.
--- NOTE | 2018-12-05 19:38 | NUR ---
Patient in room PCU 3018. I have received report from Frances MORALES and had the opportunity to ask questions and assume patient care.
--- NOTE | 2018-12-05 19:45 | NUR ---
PAGER ID: [phone] MESSAGE: pcu [phone]; daniel tucker she is asking for cough drops. can we please get an order for this? thanks stan Addendum: 12/05/18 at 2010 by Terry Cast RN dr megan aponte with codeine q4h 10cc
--- NOTE | 2018-12-05 19:59 | NUR ---
Paged Dr. Patterson PAGER ID: [phone] MESSAGE: [phone] Liberty Goss has a dry, non-productive cough and a sore throat. May we put in an order for cough drops? Ian MORALES Tele [phone]
[2018-12-05] MEDS ORDERED: guaiFENesin/codeine phos 10ml UD oral syrup PO PRN (20:10)
[2018-12-05] MEDS: pravastatin 40mg tablet PO SCH (21:46)
[2018-12-05] MEDS: insulin glargine (Lantus) pen - multi-dose SQ SCH (22:01)
[2018-12-05 23:00] VITALS: BP 141/69
--- NOTE | 2018-12-05 23:35 | NUR ---
Paged Dr. Patterson, PAGER ID: [phone] MESSAGE: [id number] Rumalynne Goss. two way radio technician reports that patient's HR has been mostly in the 120s since start of shift. Last BP was 141/69. Respiratory Therapist is now reporting labored breathing with an audible wheeze. Please advise. Ian MORALES Tele [phone]
[2018-12-05] MEDS ORDERED: diltiazem CD 120mg capsule (once-daily) PO ONE (23:45)
--- NOTE | 2018-12-05 23:50 | NUR ---
PAGER ID: [phone] MESSAGE: PCU [phone]; ALFONSO ONEILL IS REALLY HAVING A HARD TIME BREATHING. YOU GAVE ANO ORDER FOR CARDIZEM 120MG PO BUT HER BREATHING IS VERY LABORED. LAST CHEST XRAY SHOWED SOME PLEURAL EFFUSIONS. THANKS DOMINGO Addendum: 12/06/18 at [address] RN DR AVILES MADE AWARE OF HER LAST ADMISSION LASIX CAUSING LEX; DR AVILES ORDERED LASIX 20MG ONCE NOW AND STATED THIS SHOULD NOT GREATLY AFFECT HER RENAL FUNCTION TOO MUCH. WILL CONTINUE TO MONITOR PATIENT GIVEN BREATHING TX; HR IN THE 130'S.
[2018-12-06] VITALS (13 sets, daily range): BP systolic 97–138; BP diastolic 53–97
[2018-12-06] MEDS ORDERED: furosemide 20 MG/2 ML vial IV ONE
[2018-12-06] MEDS: metoprolol tartrate 1mg/ml inj IV PRN (00:02)
--- NOTE | 2018-12-06 00:12 | NUR ---
Patient's HR has been in the 120's, she is having labored breathing and wheezing. Respiratory therapy has given two treatments. Dr. Patterson paged and additional medications ordered. Lorpressor and Lasix administered IV push. Patient's BP is currently 151 with HR 139 and pulse ox 89% on 4L supplemental oxygen by nasal cannula. Patient looks uncomfortable and short of breath but denies pain at this time.
--- NOTE | 2018-12-06 00:35 | NUR ---
PAGER ID: [phone] MESSAGE: pcu [phone]; daniel tucker patient is still very wheezy. patient is still having labored breathing after being given Lasix and Cardizem. did you want to give something for anxiety? repeat chest xray? thanks stan
[2018-12-06] MEDS ORDERED: albuterol 2.5 MG/3 ML nebule NEB STA (01:00)
--- NOTE | 2018-12-06 01:00 | NUR ---
DR AVILES WAS NOT RESPONDING BACK TO NURSE WITH LAST PAGE ABOUT PATIENT BEING SOB TO OBTAIN POSSIBLE CHEST XRAY; STAT EKG DONE, MEDICATIONS WERE GIVEN 30 MINUTES AGO WITH NO IMPROVEMENT IN SOB/LABORED BREATHING. CHARGE NURSE SANJUANITA MADE AWARE NURSE WAS ABOUT TO CALL A RAPID EVEN THOUGH PATIENT'S V/S APPEARED STABLE, EXCEPT HR IN A.FIB IN THE 140'S. RAPID CALLED AND HOUSE SUP, FINANCE MGR NURSE RESPONDED. STAT ABG, CHEST XRAY, LABS, BG LEVEL PERFORMED. DR AVILES CALLED BY GLASS OR MIRROR INSPECTOR. DR AVILES THEN CAME TO FLOOR AND ASSESSED PATIENT. ORDERED FRANK TO MONITOR, NITRO 0.4MG PATCH ONCE, AND BIPAP BECAUSE OF PATIENTS BREATHING BEING LABORED. ORDERS PLACED AND BEING FOLLOWED. AT TIME OF RAPID PATIENTS' BP 150/70'S AND HR IN THE 140'S.
[2018-12-06 01:16] LABS: ABG BASE EXCESS 1.5 mmol/L (-2.0-3.0); ABG OXYGEN SATURATION 87.5 % (95-98); ABG PCO2 (T) 40.5 mmHg (32.0-45.0); ABG PH (T) 7.425 (7.350-7.450); ABG PO2 (T) 55.6 mmHg (83-108); ALLEN'S TEST Positive; FCOHb 0.3 % (0.5-1.5); FLOW 4 L/min; FMetHb 0.3 % (0.3-1.12); TOTAL HEMOGLOBIN 11.5 G/dl (12.0-16.0)
[2018-12-06] MEDS ORDERED: nitroGLYCERIN 0.4mg/hour patch TD ONE (01:25)
[2018-12-06 01:34] LABS: BASOPHILS % (AUTO) 0.4 % (0-1); EOSINOPHILS # (AUTO) 0.1 X10'3 (0-0.9); EOSINOPHILS % (AUTO) 0.7 % (0-6); HEMOGLOBIN 10.2 g/dl (12.0-16.0); LYMPHOCYTES # (AUTO) 0.9 X10'3 (1.1-4.8); MEAN CORPUSCULAR HEMOGLOBIN 26.4 PG (27.0-31.0); MEAN CORPUSCULAR VOLUME 85.1 FL (78-98); MEAN PLATELET VOLUME 8.4 FL (7.4-10.4); MONOCYTES # (AUTO) 0.3 X10'3 (0-0.9); MONOCYTES % (AUTO) 3.3 % (2-12); NEUTROPHILS # (AUTO) 9.2 X10'3 (1.8-7.7); NEUTROPHILS % (AUTO) 86.6 % (42-75); PLATELET COUNT 332 X10'3 (140-440); RED BLOOD COUNT 3.88 X10'6 (4.20-5.60); RED CELL DISTRIBUTION WIDTH 17.7 % (11.5-14.5); WHITE BLOOD COUNT 10.5 X10'3 (4.5-11.0)
[2018-12-06 01:35] LABS: INR 1.2 INR; PARTIAL THROMBOPLASTIN TIME 32 SECONDS (22-32); PROTHROMBIN TIME 11.7 SECONDS (9.0-12.0)
[2018-12-06 01:39] LABS: ALBUMIN 3.1 G/DL (3.4-5.0); ANION GAP 12 (8-16); BLOOD UREA NITROGEN 34 MG/DL (7-18); BUN/CREATININE RATIO 21.1 (6.6-38.0); CALCIUM 9.2 MG/DL (8.5-10.1); CHLORIDE 99 MMOL/L (99-107); CREATININE 1.61 MG/DL (0.40-0.90); GLUCOSE 232 MG/DL (70-104); PHOSPHORUS 3.8 MG/DL (2.3-4.5); POTASSIUM 4.3 MMOL/L (3.5-5.1); SODIUM 138 MMOL/L (135-145); TOTAL CARBON DIOXIDE 27.3 MMOL/L (24-32); TROPONIN I < 0.04 NG/ML (0.0-0.05); eGFR 32 ML/MIN
[2018-12-06] MEDS ORDERED: morphine 2 MG/ML inj. syringe IV ONE (01:40)
--- NOTE | 2018-12-06 01:42 | NUR ---
Donato Hoff LIGHTING DESIGNER is at bedside. He orders 2mg morphine IV push once now. Addendum: 12/06/18 at 0217 by Terry Cast RN RANDOLPH FIRST ORDERED 4MG MORPHINE BUT WHEN TOLD SHE HAD JUST HAD A NORCO FOR PAIN, HE ORDERED 2MG MORPHINE INSTEAD FOR THE AIR HUNGER WILL CONTINUE TO MONITOR PATIENT ON BIPAP
[2018-12-06 02:17] LABS: MAGNESIUM 1.7 MG/DL (1.5-2.4)
--- NOTE | 2018-12-06 03:27 | NUR ---
DR AVILES BACK UP ON FLOOR TO ASSESS PATIENT; NO NEW ORDER GIVEN PATIENT IN NO DISTRESS ON BIPAP
--- NOTE | 2018-12-06 06:22 | NUR ---
orientee Medication Administration: For this medication-pass time frame, all medication were reviewed, dispensed, administered and documented per hospital policy by obinna rangel.
--- NOTE | 2018-12-06 06:22 | NUR ---
orientee documentation: I have reviewed and agree with all interventions, assessments performed and documented by obinna rangel.
--- NOTE | 2018-12-06 06:22 | NUR ---
Problems reprioritized. Patient report given, questions answered & plan of care reviewed with Frances MORALES and Pebbles RN. Patient is resting in bed and seems to be in a good mood currently. She is on BiPaP.
--- NOTE | 2018-12-06 06:37 | NUR ---
Patient in room PCU 3018. I have received report from Tracee rangel and had the opportunity to ask questions and assume patient care. Pt is on continuous BiPap at 35%, on mobile #64, alert and oriented X4, in no apparent distress. Will continue to monitor.
[2018-12-06] MEDS: BUDESONIDE 0.25 MG/2 ML AMPUL.NEB IH SCH ×2 (07:27→19:45)
[2018-12-06] MEDS: furosemide 20 MG/2 ML vial IV SCH ×2 (07:28→19:37)
[2018-12-06] MEDS: metoprolol succinate 25mg (24-HOUR) SR. Tablet PO SCH (07:29)
[2018-12-06] MEDS: apixaban 5mg tablet PO SCH ×2 (07:29→19:37)
[2018-12-06] MEDS: ipratropium/albuterol 3ml nebule NEB SCH ×5 (07:43→23:10)
[2018-12-06] MEDS: K and/or MAG REPLACEMENT MC SCH (08:00)
[2018-12-06] MEDS: insulin Lispro (HumaLOG) vial - multi-dose SQ SCH ×2 (09:03→13:14)
--- NOTE | 2018-12-06 09:23 | NUR ---
Consult: Pt A1C 7.4. Met pt at bedside gave written and verbal DM education. Pt states she follows a DM meal plan at home, checks BS everyday, which she claims are "up and down", unable to give exact numbers.Pt does not see a for her DM but is currently looking into a primary care physician. Pt informed of DM class, left contact info for further questions. Pt PO is 75% meeting nutrition needs. LBM 2 Will continue to monitor. Addendum: 12/06/18 at [address] Amended: Links added. Addendum: 12/06/18 at [address] REJI Tierney
[2018-12-06] MEDS ORDERED: metoprolol succinate 25mg (24-HOUR) SR. Tablet PO SCH (09:30)
[2018-12-06] MEDS: nystatin 500,000 unit/5ML UD oral suspension PO SCH ×2 (13:09→21:24)
--- NOTE | 2018-12-06 18:30 | NUR ---
Patient in room PCU 3018. I have received report from Frances MORALES and had the opportunity to ask questions and assume patient care.
--- NOTE | 2018-12-06 18:52 | NUR ---
Problems reprioritized. Patient report given, questions answered & plan of care reviewed with Evan MORALES.
[2018-12-06] MEDS: pravastatin 40mg tablet PO SCH (21:26)
[2018-12-06] MEDS: benzocaine/menthol oral lozeng 1 EACH BOX MM PRN (21:26)
[2018-12-06] MEDS: insulin glargine (Lantus) pen - multi-dose SQ SCH (21:31)
[2018-12-07] MEDS: benzocaine/menthol oral lozeng 1 EACH BOX MM PRN ×3 (00:55→15:46)
[2018-12-07] MEDS: magnesium hydroxide 30ml (MOM) UD suspension PO PRN ×2 (02:42→15:54)
[2018-12-07 03:00] VITALS: BP 138/70
[2018-12-07] MEDS: ipratropium/albuterol 3ml nebule NEB SCH ×6 (03:01→23:21)
[2018-12-07 05:52] LABS: BASOPHILS % (AUTO) 0.5 % (0-1); EOSINOPHILS # (AUTO) 0.3 X10'3 (0-0.9); HEMOGLOBIN 9.1 g/dl (12.0-16.0); LYMPHOCYTES # (AUTO) 1.5 X10'3 (1.1-4.8); LYMPHOCYTES % (AUTO) 17.3 % (21-51); MEAN CORPUSCULAR HEMOGLOBIN 27.5 PG (27.0-31.0); MEAN CORPUSCULAR HGB CONC 32.6 g/dL (33.0-36.5); MEAN CORPUSCULAR VOLUME 84.4 FL (78-98); MONOCYTES # (AUTO) 0.6 X10'3 (0-0.9); MONOCYTES % (AUTO) 6.9 % (2-12); NEUTROPHILS # (AUTO) 6.1 X10'3 (1.8-7.7); NEUTROPHILS % (AUTO) 72.3 % (42-75); PLATELET COUNT 260 X10'3 (140-440); RED BLOOD COUNT 3.32 X10'6 (4.20-5.60); RED CELL DISTRIBUTION WIDTH 18.7 % (11.5-14.5); WHITE BLOOD COUNT 8.5 X10'3 (4.5-11.0)
[2018-12-07 06:00] VITALS: BP 128/63
[2018-12-07 06:08] LABS: ALBUMIN 2.6 G/DL (3.4-5.0); ANION GAP 11 (8-16); BLOOD UREA NITROGEN 37 MG/DL (7-18); BUN/CREATININE RATIO 24.3 (6.6-38.0); CALCIUM 8.8 MG/DL (8.5-10.1); CHLORIDE 102 MMOL/L (99-107); CREATININE 1.52 MG/DL (0.40-0.90); GLUCOSE 191 MG/DL (70-104); MAGNESIUM 1.7 MG/DL (1.5-2.4); POTASSIUM 3.8 MMOL/L (3.5-5.1); SODIUM 140 MMOL/L (135-145); TOTAL CARBON DIOXIDE 27.5 MMOL/L (24-32); eGFR 34 ML/MIN
[2018-12-07] MEDS: furosemide 20 MG/2 ML vial IV SCH ×2 (07:47→21:34)
[2018-12-07] MEDS: apixaban 5mg tablet PO SCH ×2 (07:48→21:32)
[2018-12-07] MEDS: metoprolol succinate 25mg (24-HOUR) SR. Tablet PO SCH (07:49)
[2018-12-07] MEDS: K and/or MAG REPLACEMENT MC SCH (08:00)
[2018-12-07] MEDS: BUDESONIDE 0.25 MG/2 ML AMPUL.NEB IH SCH ×2 (08:12→20:15)
[2018-12-07] MEDS: nystatin 500,000 unit/5ML UD oral suspension PO SCH ×3 (09:20→21:32)
[2018-12-07] MEDS: insulin Lispro (HumaLOG) vial - multi-dose SQ SCH ×3 (10:08→19:23)
--- NOTE | 2018-12-07 10:09 | NUR ---
Insulin dosing is non administered due to missing medication. Multiple calls to Rx. Trip to obtain missing muli-dose vial. Pt. is doing well and ambulating with physical therapy, and is asymptomatic. Per Charge nurse this dose will be held and a lunch time dose will be calculated due to the time spent gathering the medication.
[2018-12-07 11:11] VITALS: BP 136/80
--- NOTE | 2018-12-07 14:21 | NUR ---
PAGER ID: [phone] MESSAGE: Dr. Camilo Goss Complains of Left shoulder pain following a PT lift. Also a skin rash has developed in abdominal folds. The above page was sent. Today at 14:20.
[2018-12-07 15:00] VITALS: BP 125/75
--- NOTE | 2018-12-07 15:56 | NUR ---
GI: Last BM on 12-04-18 Prune Juice and PRN Milk of Magnesia.
[2018-12-07 19:00] VITALS: BP 110/70
[2018-12-07] MEDS: insulin glargine (Lantus) pen - multi-dose SQ SCH (21:00)
[2018-12-07] MEDS: pravastatin 40mg tablet PO SCH (21:32)
[2018-12-07] MEDS: nystatin 15 GM powder TP SCH (21:33)
[2018-12-07] MEDS: dextrose ORAL solution 15 GM/59 ML bottle PO PRN ×2 (21:45→22:01)
[2018-12-07 23:00] VITALS: BP 117/70
[2018-12-08 02:00] VITALS: BP 130/70
[2018-12-08] MEDS: benzocaine/menthol oral lozeng 1 EACH BOX MM PRN ×3 (02:43→13:37)
[2018-12-08] MEDS: ipratropium/albuterol 3ml nebule NEB SCH ×6 (03:11→23:23)
[2018-12-08 05:49] LABS: BASOPHILS % (AUTO) 0.4 % (0-1); EOSINOPHILS # (AUTO) 0.2 X10'3 (0-0.9); EOSINOPHILS % (AUTO) 2.8 % (0-6); HEMATOCRIT 28.4 % (35.0-45.0); HEMOGLOBIN 9.1 g/dl (12.0-16.0); LYMPHOCYTES # (AUTO) 1.4 X10'3 (1.1-4.8); LYMPHOCYTES % (AUTO) 17.8 % (21-51); MEAN CORPUSCULAR HEMOGLOBIN 27.1 PG (27.0-31.0); MEAN CORPUSCULAR HGB CONC 32.1 g/dL (33.0-36.5); MEAN CORPUSCULAR VOLUME 84.5 FL (78-98); MEAN PLATELET VOLUME 8.1 FL (7.4-10.4); MONOCYTES # (AUTO) 0.6 X10'3 (0-0.9); MONOCYTES % (AUTO) 7.3 % (2-12); NEUTROPHILS # (AUTO) 5.5 X10'3 (1.8-7.7); NEUTROPHILS % (AUTO) 71.7 % (42-75); PLATELET COUNT 247 X10'3 (140-440); RED BLOOD COUNT 3.37 X10'6 (4.20-5.60); RED CELL DISTRIBUTION WIDTH 18.6 % (11.5-14.5); WHITE BLOOD COUNT 7.7 X10'3 (4.5-11.0)
[2018-12-08 05:58] LABS: ALBUMIN 2.5 G/DL (3.4-5.0); ANION GAP 10 (8-16); BLOOD UREA NITROGEN 40 MG/DL (7-18); BUN/CREATININE RATIO 25.8 (6.6-38.0); CALCIUM 8.9 MG/DL (8.5-10.1); CHLORIDE 102 MMOL/L (99-107); CREATININE 1.55 MG/DL (0.40-0.90); GLUCOSE 156 MG/DL (70-104); MAGNESIUM 1.9 MG/DL (1.5-2.4); POTASSIUM 3.8 MMOL/L (3.5-5.1); SODIUM 141 MMOL/L (135-145); TOTAL CARBON DIOXIDE 29.4 MMOL/L (24-32); eGFR 33 ML/MIN
[2018-12-08 06:00] VITALS: BP 140/82
--- NOTE | 2018-12-08 06:27 | NUR ---
Problems reprioritized. Patient report given, questions answered & plan of care reviewed with Savanna MORALES.
--- NOTE | 2018-12-08 06:38 | NUR ---
Patient in room PCU 3018. I have received report from CARMEN Downs and had the opportunity to ask questions and assume patient care.
[2018-12-08] MEDS: K and/or MAG REPLACEMENT MC SCH (08:00)
[2018-12-08] MEDS: metoprolol succinate 25mg (24-HOUR) SR. Tablet PO SCH (08:11)
[2018-12-08] MEDS: apixaban 5mg tablet PO SCH ×2 (08:12→21:15)
[2018-12-08] MEDS: nystatin 500,000 unit/5ML UD oral suspension PO SCH ×3 (08:14→21:15)
[2018-12-08] MEDS: furosemide 20 MG/2 ML vial IV SCH ×2 (08:15→21:15)
[2018-12-08] MEDS: BUDESONIDE 0.25 MG/2 ML AMPUL.NEB IH SCH ×2 (08:25→19:37)
[2018-12-08] MEDS: nystatin 15 GM powder TP SCH ×3 (08:34→21:00)
[2018-12-08] MEDS: insulin Lispro (HumaLOG) vial - multi-dose SQ SCH ×3 (08:40→19:19)
--- NOTE | 2018-12-08 09:41 | NUR ---
Bowel Movement today Last BM 12-04-18 is treated with MOM and Prune Juice on 12-07-18, achieved Large brown soft formed stool on 12-08-18 in AM.
--- NOTE | 2018-12-08 11:02 | NUR ---
Initial: Pt admit with acute on chronic diastolic heart failure and acute kidney injury on chronic kidney disease. Per progress notes pt slowly improving and on BiPAP. Pt currently on heart healthy CHO controlled diet with fluctuating PO intake with average 75-100% meeting nutrient needs. LBM 12/08. Will continue to follow. Recommendations: 1) Continue with heart healthy CHO controlled diet 2) Wt per rx Addendum: 12/08/18 at [address] Amended: Links added.
[2018-12-08 11:11] VITALS: BP 126/80
[2018-12-08 15:15] VITALS: BP 112/70
--- NOTE | 2018-12-08 16:38 | NUR ---
Nursing Teaching COPD: Oxygen needs, value of oxygen at 2L. Heart Failure: Value of frequent rest periods, energy conservation.
--- NOTE | 2018-12-08 17:33 | NUR ---
Mims Catheter is Discontinued Mims is discontinued, good charo care is provided, Pt. is voiding on her own with no residual discomfort or symptom of retention.
[2018-12-08] MEDS ORDERED: methylPREDNISolone sod succ 125mg/2ml vial IV ONE (17:45)
--- NOTE | 2018-12-08 18:10 | NUR ---
Patient in room PCU 3018. I have received report from bjorn MORALES and had the opportunity to ask questions and assume patient care.
--- NOTE | 2018-12-08 18:23 | NUR ---
Problems reprioritized. Patient report given, questions answered & plan of care reviewed with CARMEN Alfredo.
[2018-12-08 19:00] VITALS: BP 121/68
[2018-12-08] MEDS: methylPREDNISolone sod succ 125mg/2ml vial IV SCH (21:15)
[2018-12-08] MEDS: pravastatin 40mg tablet PO SCH (22:08)
[2018-12-08] MEDS: insulin glargine (Lantus) pen - multi-dose SQ SCH (22:18)
[2018-12-08 23:00] VITALS: BP 137/84
[2018-12-09] MEDS: benzocaine/menthol oral lozeng 1 EACH BOX MM PRN (01:50)
[2018-12-09 03:00] VITALS: BP 122/82
[2018-12-09] MEDS: methylPREDNISolone sod succ 125mg/2ml vial IV SCH ×2 (03:10→07:34)
[2018-12-09] MEDS: ipratropium/albuterol 3ml nebule NEB SCH ×6 (03:17→23:17)
[2018-12-09 05:59] LABS: BASOPHILS % (AUTO) 0 % (0-1); EOSINOPHILS # (AUTO) 0.1 X10'3 (0-0.9); EOSINOPHILS % (AUTO) 1.1 % (0-6); HEMATOCRIT 30.4 % (35.0-45.0); HEMOGLOBIN 9.8 g/dl (12.0-16.0); LYMPHOCYTES # (AUTO) 0.3 X10'3 (1.1-4.8); LYMPHOCYTES % (AUTO) 4.7 % (21-51); MEAN CORPUSCULAR HGB CONC 32.3 g/dL (33.0-36.5); MEAN CORPUSCULAR VOLUME 83.7 FL (78-98); MEAN PLATELET VOLUME 8.2 FL (7.4-10.4); MONOCYTES % (AUTO) 0.4 % (2-12); NEUTROPHILS # (AUTO) 6.3 X10'3 (1.8-7.7); NEUTROPHILS % (AUTO) 93.8 % (42-75); PLATELET COUNT 267 X10'3 (140-440); RED BLOOD COUNT 3.64 X10'6 (4.20-5.60); WHITE BLOOD COUNT 6.7 X10'3 (4.5-11.0)
[2018-12-09 06:00] VITALS: BP 128/86
--- NOTE | 2018-12-09 06:00 | NUR ---
Problems reprioritized. Patient report given, questions answered & plan of care reviewed with Jess MORALES.
--- NOTE | 2018-12-09 06:10 | NUR ---
Patient in room PCU 3018. I have received report from CARMEN WHEAT and had the opportunity to ask questions and assume patient care. BEDSIDE REPORT DONE
[2018-12-09 06:16] LABS: ALBUMIN 2.6 G/DL (3.4-5.0); ANION GAP 12 (8-16); BLOOD UREA NITROGEN 43 MG/DL (7-18); BUN/CREATININE RATIO 25.6 (6.6-38.0); CALCIUM 8.9 MG/DL (8.5-10.1); CHLORIDE 98 MMOL/L (99-107); CREATININE 1.68 MG/DL (0.40-0.90); GLUCOSE 355 MG/DL (70-104); MAGNESIUM 1.9 MG/DL (1.5-2.4); POTASSIUM 4.2 MMOL/L (3.5-5.1); SODIUM 139 MMOL/L (135-145); TOTAL CARBON DIOXIDE 28.8 MMOL/L (24-32); eGFR 30 ML/MIN
[2018-12-09] MEDS: apixaban 5mg tablet PO SCH ×2 (07:34→21:19)
[2018-12-09] MEDS: furosemide 20 MG/2 ML vial IV SCH (07:34)
[2018-12-09] MEDS: nystatin 15 GM powder TP SCH ×3 (07:35→21:20)
[2018-12-09] MEDS: metoprolol succinate 25mg (24-HOUR) SR. Tablet PO SCH (07:35)
[2018-12-09] MEDS: nystatin 500,000 unit/5ML UD oral suspension PO SCH ×3 (07:35→21:20)
[2018-12-09 07:41] VITALS: BP 119/83
[2018-12-09] MEDS: BUDESONIDE 0.25 MG/2 ML AMPUL.NEB IH SCH ×2 (07:54→19:33)
[2018-12-09] MEDS: K and/or MAG REPLACEMENT MC SCH (08:00)
[2018-12-09] MEDS ORDERED: metoprolol succinate 25mg (24-HOUR) SR. Tablet PO ONE (09:25)
[2018-12-09] MEDS: insulin Lispro (HumaLOG) vial - multi-dose SQ SCH ×4 (09:54→18:57)
[2018-12-09 10:40] VITALS: BP 137/84
--- NOTE | 2018-12-09 12:15 | NUR ---
PAGED DR. SHERWOOD PAGER ID: [phone] MESSAGE: FAYE Didi [phone] DARCIE SANDRA GLUCOSE [phone]
--- NOTE | 2018-12-09 13:27 | NUR ---
PER DR. MCCORMACK GIVE PT 10 UNITS HUMALOG AND RECHECK BLOOD SUGAR IN A COUPLE HOURS. HE IS AWARE OF BLOOD SUGARS.
[2018-12-09 15:00] VITALS: BP 138/71
[2018-12-09] MEDS: methylPREDNISolone sod succ/PF 40mg inj. IV SCH (16:16)
--- NOTE | 2018-12-09 16:27 | NUR ---
PAGED DR SHERWOOD PAGER ID: [phone] MESSAGE: JESS Didi [phone] ESMER SANDRA BLOOD SUGAR [phone] Addendum: 12/09/18 at 1641 by Jess Marks RN PER DR. SHERWOOD RECHECK GLUCOSE AT 1700
--- NOTE | 2018-12-09 17:18 | NUR ---
paged dr polanco PAGER ID: [phone] MESSAGE: merlin josef [phone] brando dunn [phone] Addendum: 12/09/18 at 1724 by Merlin Marks RN per dr figueroa follow protocol admin 35 units
--- NOTE | 2018-12-09 18:38 | NUR ---
Problems reprioritized. Patient report given, questions answered & plan of care reviewed with CARMEN Vela.
--- NOTE | 2018-12-09 18:42 | NUR ---
Patient in room PCU 3018. I have received report from CARMEN Mercado and had the opportunity to ask questions and assume patient care.
[2018-12-09 19:00] VITALS: BP 130/70
--- NOTE | 2018-12-09 19:14 | NUR ---
Problems reprioritized. Patient report given, questions answered & plan of care reviewed with CARMEN Cash.
[2018-12-09] MEDS: pravastatin 40mg tablet PO SCH (21:19)
[2018-12-09] MEDS: furosemide 40mg/4ml inj IV SCH (21:19)
[2018-12-09] MEDS: insulin glargine (Lantus) pen - multi-dose SQ SCH (21:48)
[2018-12-10] MEDS: methylPREDNISolone sod succ/PF 40mg inj. IV SCH ×2 (01:16→08:30)
[2018-12-10] MEDS: benzocaine/menthol oral lozeng 1 EACH BOX MM PRN (01:26)
[2018-12-10 03:00] VITALS: BP 119/63
[2018-12-10] MEDS: ipratropium/albuterol 3ml nebule NEB SCH ×6 (03:00→23:19)
--- NOTE | 2018-12-10 06:50 | NUR ---
Patient in room PCU 3018. I have received report from JOHAN MORALES and had the opportunity to ask questions and assume patient care.
[2018-12-10 07:22] VITALS: BP 137/73
[2018-12-10] MEDS: BUDESONIDE 0.25 MG/2 ML AMPUL.NEB IH SCH ×2 (07:27→19:21)
[2018-12-10] MEDS: nystatin 500,000 unit/5ML UD oral suspension PO SCH ×3 (08:00→21:14)
[2018-12-10] MEDS: K and/or MAG REPLACEMENT MC SCH (08:00)
[2018-12-10] MEDS: nystatin 15 GM powder TP SCH ×3 (08:31→21:04)
[2018-12-10] MEDS: furosemide 40mg/4ml inj IV SCH (08:31)
[2018-12-10] MEDS: metoprolol succinate 25mg (24-HOUR) SR. Tablet PO SCH (08:31)
[2018-12-10] MEDS: apixaban 5mg tablet PO SCH ×2 (08:31→21:04)
[2018-12-10] MEDS: insulin Lispro (HumaLOG) vial - multi-dose SQ SCH ×5 (09:02→21:08)
[2018-12-10 11:48] LABS: BASOPHILS % (AUTO) 0 % (0-1); EOSINOPHILS # (AUTO) 0.2 X10'3 (0-0.9); EOSINOPHILS % (AUTO) 1.5 % (0-6); HEMATOCRIT 31.5 % (35.0-45.0); HEMOGLOBIN 10.1 g/dl (12.0-16.0); LYMPHOCYTES # (AUTO) 0.3 X10'3 (1.1-4.8); LYMPHOCYTES % (AUTO) 2.6 % (21-51); MEAN CORPUSCULAR HGB CONC 31.9 g/dL (33.0-36.5); MEAN CORPUSCULAR VOLUME 84.5 FL (78-98); MEAN PLATELET VOLUME 8.3 FL (7.4-10.4); MONOCYTES # (AUTO) 0.2 X10'3 (0-0.9); MONOCYTES % (AUTO) 1.5 % (2-12); NEUTROPHILS # (AUTO) 12.5 X10'3 (1.8-7.7); NEUTROPHILS % (AUTO) 94.4 % (42-75); PLATELET COUNT 314 X10'3 (140-440); RED BLOOD COUNT 3.73 X10'6 (4.20-5.60); RED CELL DISTRIBUTION WIDTH 18.8 % (11.5-14.5); WHITE BLOOD COUNT 13.2 X10'3 (4.5-11.0)
[2018-12-10 12:07] LABS: ALANINE AMINOTRANSFERASE 20 U/L (12-78); ALBUMIN 3.1 G/DL (3.4-5.0); ALBUMIN/GLOBULIN RATIO 0.7 (1.1-1.5); ALKALINE PHOSPHATASE 79 IU/L (46-116); ANION GAP 14 (8-16); ASPARTATE AMINO TRANSFERASE 14 U/L (10-37); BILIRUBIN,TOTAL 0.8 MG/DL (0.1-1.0); BLOOD UREA NITROGEN 62 MG/DL (7-18); CALCIUM 9.3 MG/DL (8.5-10.1); CHLORIDE 97 MMOL/L (99-107); GLUCOSE 256 MG/DL (70-104); SODIUM 140 MMOL/L (135-145); TOTAL CARBON DIOXIDE 28.8 MMOL/L (24-32); TOTAL PROTEIN 7.4 G/DL (6.4-8.2)
[2018-12-10 12:10] LABS: BUN/CREATININE RATIO 35.4 (6.6-38.0); CREATININE 1.75 MG/DL (0.40-0.90); POTASSIUM 3.2 MMOL/L (3.5-5.1); eGFR 29 ML/MIN
[2018-12-10 13:00] VITALS: BP 114/64
--- NOTE | 2018-12-10 16:25 | NUR ---
TRIED TO WEAN PT OFF O2, SHE KEEPS SATTING AT [phone] ON ROOM AIR. AT ONE LITRE SHE IS SATTING AT 95%
[2018-12-10 18:00] VITALS: BP 119/73
--- NOTE | 2018-12-10 18:30 | NUR ---
Susan HOYT paged regarding k+ of 3.2 and no replacement order, awaiting response.
--- NOTE | 2018-12-10 18:30 | NUR ---
Patient in room PCU 3018. I have received report from Brielle rangel and had the opportunity to ask questions and assume patient care. Pt is up on commode, will call when finishedc.
[2018-12-10] MEDS ORDERED: potassium Cl 40MEQ/NS 500ml 500 ML IV PRN ×2 (21:00)
[2018-12-10] MEDS ORDERED: magnesium Cl slow-release 64mg tablet PO PRN (21:00)
[2018-12-10] MEDS ORDERED: magnesium 4gm in 100ml NS 100 ML IV PRN (21:00)
[2018-12-10] MEDS ORDERED: potassium Cl 20 mEq SR tablet PO PRN (21:00)
[2018-12-10] MEDS: pravastatin 40mg tablet PO SCH (21:04)
[2018-12-10] MEDS: insulin glargine (Lantus) pen - multi-dose SQ SCH (21:08)
[2018-12-10] MEDS: potassium Cl 20 mEq SR tablet PO PRN (21:17)
[2018-12-10 22:00] VITALS: BP 117/64
[2018-12-11] MEDS: benzocaine/menthol oral lozeng 1 EACH BOX MM PRN (01:22)
[2018-12-11] MEDS: potassium Cl 20 mEq SR tablet PO PRN (01:24)
[2018-12-11 02:00] VITALS: BP 122/68
[2018-12-11] MEDS: ipratropium/albuterol 3ml nebule NEB SCH ×6 (02:01→23:01)
[2018-12-11 05:31] LABS: ALBUMIN 2.9 G/DL (3.4-5.0); ANION GAP 10 (8-16); BLOOD UREA NITROGEN 57 MG/DL (7-18); BUN/CREATININE RATIO 36.1 (6.6-38.0); CALCIUM 9.3 MG/DL (8.5-10.1); CHLORIDE 101 MMOL/L (99-107); CREATININE 1.58 MG/DL (0.40-0.90); GLUCOSE 188 MG/DL (70-104); MAGNESIUM 1.9 MG/DL (1.5-2.4); POTASSIUM 3.7 MMOL/L (3.5-5.1); SODIUM 142 MMOL/L (135-145); eGFR 32 ML/MIN
[2018-12-11 05:48] LABS: HEMATOCRIT 29.8 % (35.0-45.0); HEMOGLOBIN 9.6 g/dl (12.0-16.0); MEAN CORPUSCULAR HEMOGLOBIN 26.9 PG (27.0-31.0); MEAN CORPUSCULAR HGB CONC 32.1 g/dL (33.0-36.5); MEAN CORPUSCULAR VOLUME 83.8 FL (78-98); MEAN PLATELET VOLUME 8.5 FL (7.4-10.4); PLATELET COUNT 259 X10'3 (140-440); RED BLOOD COUNT 3.56 X10'6 (4.20-5.60); RED CELL DISTRIBUTION WIDTH 18.3 % (11.5-14.5); WHITE BLOOD COUNT 10.4 X10'3 (4.5-11.0)
[2018-12-11 06:00] VITALS: BP 119/69
--- NOTE | 2018-12-11 06:38 | NUR ---
Problems reprioritized. Patient report given, questions answered & plan of care reviewed with Art Rn.
[2018-12-11] MEDS: BUDESONIDE 0.25 MG/2 ML AMPUL.NEB IH SCH ×2 (06:59→19:25)
[2018-12-11] MEDS: furosemide 40mg tablet PO SCH ×2 (07:28→08:31)
[2018-12-11] MEDS: nystatin 15 GM powder TP SCH ×3 (07:28→21:13)
[2018-12-11] MEDS: apixaban 5mg tablet PO SCH ×2 (07:29→21:13)
[2018-12-11] MEDS: predniSONE 20 mg tablet PO SCH ×2 (07:29→08:33)
[2018-12-11] MEDS: metoprolol succinate 25mg (24-HOUR) SR. Tablet PO SCH ×2 (07:29→08:33)
[2018-12-11] MEDS: nystatin 500,000 unit/5ML UD oral suspension PO SCH ×3 (07:30→21:13)
[2018-12-11] MEDS: K and/or MAG REPLACEMENT MC SCH (08:00)
[2018-12-11] MEDS: insulin Lispro (HumaLOG) vial - multi-dose SQ SCH ×3 (08:44→19:18)
[2018-12-11 11:00] VITALS: BP 136/85
[2018-12-11 15:00] VITALS: BP 123/67
[2018-12-11 19:00] VITALS: BP 135/83
--- NOTE | 2018-12-11 19:00 | NUR ---
Patient in room PCU 3018. I have received report from art rn and had the opportunity to ask questions and assume patient care.
[2018-12-11] MEDS: pravastatin 40mg tablet PO SCH (21:13)
[2018-12-11] MEDS: insulin glargine (Lantus) pen - multi-dose SQ SCH (21:22)
[2018-12-11 23:00] VITALS: BP 142/62
[2018-12-12 03:00] VITALS: BP 143/74
[2018-12-12] MEDS: ipratropium/albuterol 3ml nebule NEB SCH ×3 (03:05→11:48)
[2018-12-12 04:57] LABS: HEMATOCRIT 30.9 % (35.0-45.0); HEMOGLOBIN 9.8 g/dl (12.0-16.0); MEAN CORPUSCULAR HEMOGLOBIN 26.8 PG (27.0-31.0); MEAN CORPUSCULAR HGB CONC 31.8 g/dL (33.0-36.5); MEAN CORPUSCULAR VOLUME 84.3 FL (78-98); PLATELET COUNT 268 X10'3 (140-440); RED BLOOD COUNT 3.67 X10'6 (4.20-5.60); RED CELL DISTRIBUTION WIDTH 18.6 % (11.5-14.5); WHITE BLOOD COUNT 12.5 X10'3 (4.5-11.0)
[2018-12-12 05:10] LABS: ALBUMIN 2.7 G/DL (3.4-5.0); ANION GAP 9 (8-16); BLOOD UREA NITROGEN 52 MG/DL (7-18); CALCIUM 8.9 MG/DL (8.5-10.1); CHLORIDE 103 MMOL/L (99-107); CREATININE 1.37 MG/DL (0.40-0.90); GLUCOSE 94 MG/DL (70-104); MAGNESIUM 1.7 MG/DL (1.5-2.4); POTASSIUM 3.3 MMOL/L (3.5-5.1); SODIUM 145 MMOL/L (135-145); TOTAL CARBON DIOXIDE 33.4 MMOL/L (24-32); eGFR 38 ML/MIN
[2018-12-12 06:00] VITALS: BP 112/50
--- NOTE | 2018-12-12 06:22 | NUR ---
Problems reprioritized. Patient report given, questions answered & plan of care reviewed with JOSELITO MORALES. PATIENT AWAKE ON BSC IN NO DISTRESS.
[2018-12-12] MEDS: BUDESONIDE 0.25 MG/2 ML AMPUL.NEB IH SCH (07:52)
[2018-12-12] MEDS: K and/or MAG REPLACEMENT MC SCH (08:00)
[2018-12-12] MEDS: apixaban 5mg tablet PO SCH (08:35)
[2018-12-12] MEDS: potassium Cl 20 mEq SR tablet PO PRN ×2 (08:36→13:07)
[2018-12-12] MEDS: nystatin 500,000 unit/5ML UD oral suspension PO SCH (08:37)
[2018-12-12] MEDS: insulin Lispro (HumaLOG) vial - multi-dose SQ SCH ×2 (08:43→13:05)
--- NOTE | 2018-12-12 08:54 | NUR ---
Paged Dr. Davis: PAGER ID: [phone] MESSAGE: Naila [facility] [phone] RE: Liberty Goss [phone]. Patient does not have current order in [facility] for Toprol xl 150 mg daily. Patient has received this med every morning. Please advise. Thank you!
[2018-12-12] MEDS ORDERED: metoprolol succinate 25mg (24-HOUR) SR. Tablet PO SCH (10:00)
[2018-12-12] MEDS ORDERED: METO50TA7 PO (10:46)
[2018-12-12] MEDS ORDERED: FURO-150 PO (10:46)
[2018-12-12] MEDS ORDERED: PRED20TA PO (10:46)
[2018-12-12] MEDS ORDERED: POTA20TA10 PO (10:46)
[2018-12-12] MEDS ORDERED: IPRA4AER IH (10:57)
[2018-12-12 11:00] VITALS: BP 136/73
[2018-12-12] MEDS: nystatin 15 GM powder TP SCH ×2 (11:26→13:07)
[2018-12-12 15:00] VITALS: BP 139/76
--- NOTE | 2018-12-12 15:45 | NUR ---
Patient stable for discharge per MD orders. All discharge instructions reviewed with patient and all questions answered. Per MD discharge instructions, patient needs to find new PCP provider for follow up. Patient to follow up with Dr. Moulton in 2 weeks. Patient provided education on new home medications prescribed by Dr. Davis. Patient received [facility] bedside delivery for new medications. Telemetry monitoring discontinued. PIV discontinued - cannula intact. Patient and all belongings sent in private vehicle to home. Patient accompanied by friend. Auxillary wheeled patient to lobby for transport to home.
== END 2018-12-12 15:45 | disposition home health service (06) | DRG 682 ==
LOC: ER 12:53 → ED HOLD 17:10 → PCU 3S 18:35
PROVIDERS: ADMIT Hospitalist; ATTEND Family Medicine
PROC: 5A09357 Assistance with Respiratory Ventilation, Less than 24 Consecutive Hours, Continuous Positive Airway Pressure (ICD-10-PCS; principal; 2018-12-06)
PROC: 5A09357 Assistance with Respiratory Ventilation, Less than 24 Consecutive Hours, Continuous Positive Airway Pressure (ICD-10-PCS; 2018-12-07)
PROC: 5A09357 Assistance with Respiratory Ventilation, Less than 24 Consecutive Hours, Continuous Positive Airway Pressure (ICD-10-PCS; 2018-12-08)
PROC: 5A09357 Assistance with Respiratory Ventilation, Less than 24 Consecutive Hours, Continuous Positive Airway Pressure (ICD-10-PCS; 2018-12-09)
PROC: 5A09357 Assistance with Respiratory Ventilation, Less than 24 Consecutive Hours, Continuous Positive Airway Pressure (ICD-10-PCS; 2018-12-10)
PROC: 5A09357 Assistance with Respiratory Ventilation, Less than 24 Consecutive Hours, Continuous Positive Airway Pressure (ICD-10-PCS; 2018-12-11)
PROC: 5A09357 Assistance with Respiratory Ventilation, Less than 24 Consecutive Hours, Continuous Positive Airway Pressure (ICD-10-PCS; 2018-12-12)
DX: N17.9 Acute kidney failure, unspecified (principal); I50.33 Acute on chronic diastolic (congestive) heart failure; J96.21 Acute and chronic respiratory failure with hypoxia; I13.0 Hypertensive heart and chronic kidney disease with heart failure and stage 1 through stage 4 chronic kidney disease, or unspecified chronic kidney disease; Z68.42 Body mass index [BMI] 45.0-49.9, adult; J44.1 Chronic obstructive pulmonary disease with (acute) exacerbation; E11.22 Type 2 diabetes mellitus with diabetic chronic kidney disease; E78.00 Pure hypercholesterolemia, unspecified; E78.5 Hyperlipidemia, unspecified; E87.6 Hypokalemia; G47.30 Sleep apnea, unspecified; I48.91 Unspecified atrial fibrillation; N18.9 Chronic kidney disease, unspecified; E66.01 Morbid (severe) obesity due to excess calories; Z60.9 Problem related to social environment, unspecified; Z60.2 Problems related to living alone; Z85.038 Personal history of other malignant neoplasm of large intestine; Z99.81 Dependence on supplemental oxygen; Z87.01 Personal history of pneumonia (recurrent)
CPT/HCPCS: 36415; 36600; 71045; 71046; 80048; 80053; 82803; 82948; 83605; 83735; 83880; 84100; 84484; 85018; 85025; 85027; 85610; 85730; 87040; 87070; 93005; 94640; 94660; 94760; 97110; 97116; 97162; 97530; 99285; G0378; J1815; J1940; J2270; J2920; J2930; J3490; J7512

== ENCOUNTER 2020-07-23 12:00 | Day surgery (SDC) | payer MEDICARE, OTHER ==
[~2020-07-23 12:00] MED LIST changes: -AMLODIPINE PO; -AZI25OT PO; -GLIP5TAB13 PO; -LOSA25TA96 PO; -METF500T PO; +METO-411 PO; -NOVALOG SQ; +POTA20TA10 PO; +PRAV40TA3 PO; +PRED20TA PO; -metoprolol PO; -provastatin PO
[2020-07-23] MEDS ORDERED: LIDOcaine 2% 5ml jelly ONE ×2 (12:18)
== END 2020-07-23 13:59 | disposition home or self-care (01) ==
LOC: WOUND CARE 12:00
PROVIDERS: ATTEND Nurse Practitioner
DX: I83.018 Varicose veins of right lower extremity with ulcer other part of lower leg (principal); E11.622 Type 2 diabetes mellitus with other skin ulcer; L97.812 Non-pressure chronic ulcer of other part of right lower leg with fat layer exposed; I83.023 Varicose veins of left lower extremity with ulcer of ankle; L97.322 Non-pressure chronic ulcer of left ankle with fat layer exposed; I83.013 Varicose veins of right lower extremity with ulcer of ankle; L97.312 Non-pressure chronic ulcer of right ankle with fat layer exposed; E78.00 Pure hypercholesterolemia, unspecified; E66.01 Morbid (severe) obesity due to excess calories; E78.5 Hyperlipidemia, unspecified; E11.22 Type 2 diabetes mellitus with diabetic chronic kidney disease; I13.0 Hypertensive heart and chronic kidney disease with heart failure and stage 1 through stage 4 chronic kidney disease, or unspecified chronic kidney disease; N18.9 Chronic kidney disease, unspecified; I50.33 Acute on chronic diastolic (congestive) heart failure; G47.30 Sleep apnea, unspecified; I48.91 Unspecified atrial fibrillation; J18.9 Pneumonia, unspecified organism; J96.20 Acute and chronic respiratory failure, unspecified whether with hypoxia or hypercapnia; J44.9 Chronic obstructive pulmonary disease, unspecified; M19.90 Unspecified osteoarthritis, unspecified site; J81.1 Chronic pulmonary edema; Z79.01 Long term (current) use of anticoagulants; Z85.038 Personal history of other malignant neoplasm of large intestine; Z99.81 Dependence on supplemental oxygen; Z87.01 Personal history of pneumonia (recurrent); Z79.899 Other long term (current) drug therapy; Z87.891 Personal history of nicotine dependence; Z68.42 Body mass index [BMI] 45.0-49.9, adult
CPT/HCPCS: 82948; 87070; 87075; 87077; 87102; 87186; 97597; 97598

== ENCOUNTER 2020-07-30 13:00 | Day surgery (SDC) | payer MEDICARE, OTHER ==
[2020-08-05] MEDS ORDERED: METO-411 PO (15:31)
[2020-08-05] MEDS ORDERED: POTA-82 PO (15:31)
[2020-08-05] MEDS ORDERED: LOSA100T57 PO (15:31)
[2020-08-05] MEDS ORDERED: INSU100V12 SQ (15:31)
[2020-08-05] MEDS ORDERED: APIX5TAB3 PO (15:31)
[2020-08-05] MEDS ORDERED: FURO20TA4 PO (15:31)
[2020-08-05] MEDS ORDERED: INSU100V13 SQ (15:31)
[2020-08-06] MEDS ORDERED: ATOR10TA70 PO (00:15)
[2020-08-07] MEDS ORDERED: NYSPWD TP (14:05)
[2020-08-07] MEDS ORDERED: CIPR2.5D14 LEFTEYE (14:05)
== END 2020-07-30 16:09 | disposition home or self-care (01) ==
LOC: WOUND CARE 13:00
PROVIDERS: ATTEND Nurse Practitioner
DX: I83.018 Varicose veins of right lower extremity with ulcer other part of lower leg (principal); E11.622 Type 2 diabetes mellitus with other skin ulcer; L97.812 Non-pressure chronic ulcer of other part of right lower leg with fat layer exposed; I83.012 Varicose veins of right lower extremity with ulcer of calf; L97.211 Non-pressure chronic ulcer of right calf limited to breakdown of skin; I83.023 Varicose veins of left lower extremity with ulcer of ankle; L97.322 Non-pressure chronic ulcer of left ankle with fat layer exposed; I83.013 Varicose veins of right lower extremity with ulcer of ankle; L97.312 Non-pressure chronic ulcer of right ankle with fat layer exposed; I83.222 Varicose veins of left lower extremity with both ulcer of calf and inflammation; L97.221 Non-pressure chronic ulcer of left calf limited to breakdown of skin; L97.821 Non-pressure chronic ulcer of other part of left lower leg limited to breakdown of skin; E78.00 Pure hypercholesterolemia, unspecified; E66.01 Morbid (severe) obesity due to excess calories; E78.5 Hyperlipidemia, unspecified; E11.22 Type 2 diabetes mellitus with diabetic chronic kidney disease; I13.0 Hypertensive heart and chronic kidney disease with heart failure and stage 1 through stage 4 chronic kidney disease, or unspecified chronic kidney disease; N18.9 Chronic kidney disease, unspecified; I50.33 Acute on chronic diastolic (congestive) heart failure; G47.30 Sleep apnea, unspecified; I48.91 Unspecified atrial fibrillation; J44.9 Chronic obstructive pulmonary disease, unspecified; M19.90 Unspecified osteoarthritis, unspecified site; J81.1 Chronic pulmonary edema; I87.8 Other specified disorders of veins; Z79.01 Long term (current) use of anticoagulants; Z85.038 Personal history of other malignant neoplasm of large intestine; Z99.81 Dependence on supplemental oxygen; Z87.01 Personal history of pneumonia (recurrent); Z79.899 Other long term (current) drug therapy; Z87.891 Personal history of nicotine dependence; Z68.42 Body mass index [BMI] 45.0-49.9, adult
CPT/HCPCS: 93970; G0463

== ENCOUNTER 2020-08-14 12:45 | Outpatient (CLI) | payer MEDICARE, OTHER ==
[~2020-08-14 12:45] MED LIST changes: +ATOR10TA70 PO; +CIPR2.5D14 LEFTEYE; +FURO20TA4 PO; +INSU100V12 SQ; +INSU100V13 SQ; +LOSA100T57 PO; +NYSPWD TP; +POTA-82 PO; -POTA20TA10 PO; -PRAV40TA3 PO; -PRED20TA PO
[2020-08-14] MEDS ORDERED: LIDOcaine 2% 5ml jelly ONE (13:36)
== END 2020-08-14 14:15 | disposition home or self-care (01) ==
LOC: WOUND CARE 12:45
PROVIDERS: ATTEND Nurse Practitioner
DX: I83.018 Varicose veins of right lower extremity with ulcer other part of lower leg (principal); E11.622 Type 2 diabetes mellitus with other skin ulcer; L97.818 Non-pressure chronic ulcer of other part of right lower leg with other specified severity; I83.012 Varicose veins of right lower extremity with ulcer of calf; L97.211 Non-pressure chronic ulcer of right calf limited to breakdown of skin; I83.023 Varicose veins of left lower extremity with ulcer of ankle; L97.328 Non-pressure chronic ulcer of left ankle with other specified severity; I83.013 Varicose veins of right lower extremity with ulcer of ankle; L97.312 Non-pressure chronic ulcer of right ankle with fat layer exposed; I83.222 Varicose veins of left lower extremity with both ulcer of calf and inflammation; L97.221 Non-pressure chronic ulcer of left calf limited to breakdown of skin; L97.821 Non-pressure chronic ulcer of other part of left lower leg limited to breakdown of skin; E78.00 Pure hypercholesterolemia, unspecified; E66.01 Morbid (severe) obesity due to excess calories; E78.5 Hyperlipidemia, unspecified; E11.22 Type 2 diabetes mellitus with diabetic chronic kidney disease; I13.0 Hypertensive heart and chronic kidney disease with heart failure and stage 1 through stage 4 chronic kidney disease, or unspecified chronic kidney disease; N18.9 Chronic kidney disease, unspecified; I50.33 Acute on chronic diastolic (congestive) heart failure; G47.30 Sleep apnea, unspecified; I48.91 Unspecified atrial fibrillation; J44.9 Chronic obstructive pulmonary disease, unspecified; M19.90 Unspecified osteoarthritis, unspecified site; J81.1 Chronic pulmonary edema; I87.8 Other specified disorders of veins; Z79.01 Long term (current) use of anticoagulants; Z85.038 Personal history of other malignant neoplasm of large intestine; Z99.81 Dependence on supplemental oxygen; Z87.01 Personal history of pneumonia (recurrent); Z79.899 Other long term (current) drug therapy; Z87.891 Personal history of nicotine dependence; Z68.42 Body mass index [BMI] 45.0-49.9, adult
CPT/HCPCS: G0463

== ENCOUNTER 2020-08-20 12:49 | Outpatient (CLI) | payer MEDICARE, OTHER ==
[2020-08-20] MEDS ORDERED: LIDOcaine 2% 5ml jelly ONE (13:12)
== END 2020-08-20 23:59 | disposition home or self-care (01) ==
LOC: WOUND CARE 12:49
PROVIDERS: ATTEND Nurse Practitioner
DX: E11.622 Type 2 diabetes mellitus with other skin ulcer (principal); I83.028 Varicose veins of left lower extremity with ulcer other part of lower leg; L97.822 Non-pressure chronic ulcer of other part of left lower leg with fat layer exposed; I83.012 Varicose veins of right lower extremity with ulcer of calf; L97.211 Non-pressure chronic ulcer of right calf limited to breakdown of skin; I83.222 Varicose veins of left lower extremity with both ulcer of calf and inflammation; L97.221 Non-pressure chronic ulcer of left calf limited to breakdown of skin; I83.023 Varicose veins of left lower extremity with ulcer of ankle; L97.321 Non-pressure chronic ulcer of left ankle limited to breakdown of skin; I83.013 Varicose veins of right lower extremity with ulcer of ankle; L97.311 Non-pressure chronic ulcer of right ankle limited to breakdown of skin; E78.00 Pure hypercholesterolemia, unspecified; E66.01 Morbid (severe) obesity due to excess calories; E78.5 Hyperlipidemia, unspecified; E11.22 Type 2 diabetes mellitus with diabetic chronic kidney disease; I13.0 Hypertensive heart and chronic kidney disease with heart failure and stage 1 through stage 4 chronic kidney disease, or unspecified chronic kidney disease; N18.9 Chronic kidney disease, unspecified; I50.33 Acute on chronic diastolic (congestive) heart failure; G47.30 Sleep apnea, unspecified; I48.91 Unspecified atrial fibrillation; J44.9 Chronic obstructive pulmonary disease, unspecified; M19.90 Unspecified osteoarthritis, unspecified site; J81.1 Chronic pulmonary edema; I87.8 Other specified disorders of veins; Z79.01 Long term (current) use of anticoagulants; Z85.038 Personal history of other malignant neoplasm of large intestine; Z99.81 Dependence on supplemental oxygen; Z87.01 Personal history of pneumonia (recurrent); Z79.899 Other long term (current) drug therapy; Z87.891 Personal history of nicotine dependence; Z68.42 Body mass index [BMI] 45.0-49.9, adult
CPT/HCPCS: 36416; 82948; 87070; 87075; 87077; 87186; 97597; 97598

== ENCOUNTER 2020-08-27 13:50 | Outpatient (CLI) | payer MEDICARE, OTHER ==
[2020-08-27] MEDS ORDERED: LIDOcaine 2% 5ml jelly ONE (14:28)
== END 2020-08-27 23:59 | disposition home or self-care (01) ==
LOC: WOUND CARE 13:50
PROVIDERS: ATTEND Nurse Practitioner
DX: E11.622 Type 2 diabetes mellitus with other skin ulcer (principal); I83.028 Varicose veins of left lower extremity with ulcer other part of lower leg; L97.822 Non-pressure chronic ulcer of other part of left lower leg with fat layer exposed; I83.013 Varicose veins of right lower extremity with ulcer of ankle; L97.311 Non-pressure chronic ulcer of right ankle limited to breakdown of skin; I83.018 Varicose veins of right lower extremity with ulcer other part of lower leg; L97.812 Non-pressure chronic ulcer of other part of right lower leg with fat layer exposed; S81.001A Unspecified open wound, right knee, initial encounter; S90.522A Blister (nonthermal), left ankle, initial encounter; E78.00 Pure hypercholesterolemia, unspecified; E66.01 Morbid (severe) obesity due to excess calories; E78.5 Hyperlipidemia, unspecified; E11.22 Type 2 diabetes mellitus with diabetic chronic kidney disease; I13.0 Hypertensive heart and chronic kidney disease with heart failure and stage 1 through stage 4 chronic kidney disease, or unspecified chronic kidney disease; N18.9 Chronic kidney disease, unspecified; I50.33 Acute on chronic diastolic (congestive) heart failure; G47.30 Sleep apnea, unspecified; I48.91 Unspecified atrial fibrillation; J44.9 Chronic obstructive pulmonary disease, unspecified; M19.90 Unspecified osteoarthritis, unspecified site; J81.1 Chronic pulmonary edema; I87.8 Other specified disorders of veins; Z79.01 Long term (current) use of anticoagulants; Z85.038 Personal history of other malignant neoplasm of large intestine; Z99.81 Dependence on supplemental oxygen; Z87.01 Personal history of pneumonia (recurrent); Z79.899 Other long term (current) drug therapy; Z87.891 Personal history of nicotine dependence; Z68.42 Body mass index [BMI] 45.0-49.9, adult; X58.XXXA Exposure to other specified factors, initial encounter; Y93.89 Activity, other specified; Y99.8 Other external cause status; Y92.89 Other specified places as the place of occurrence of the external cause
CPT/HCPCS: 36416; 82948; 97597; 97598

== ENCOUNTER 2020-09-03 14:14 | Outpatient (CLI) | payer MEDICARE, OTHER ==
[2020-09-03] MEDS ORDERED: LIDOcaine 2% 5ml jelly ONE (14:35)
== END 2020-09-03 23:59 | disposition home or self-care (01) ==
LOC: WOUND CARE 14:14
PROVIDERS: ATTEND Nurse Practitioner
DX: E11.622 Type 2 diabetes mellitus with other skin ulcer (principal); I83.028 Varicose veins of left lower extremity with ulcer other part of lower leg; L97.822 Non-pressure chronic ulcer of other part of left lower leg with fat layer exposed; I83.018 Varicose veins of right lower extremity with ulcer other part of lower leg; L97.812 Non-pressure chronic ulcer of other part of right lower leg with fat layer exposed; I83.013 Varicose veins of right lower extremity with ulcer of ankle; L97.311 Non-pressure chronic ulcer of right ankle limited to breakdown of skin; I83.012 Varicose veins of right lower extremity with ulcer of calf; L97.211 Non-pressure chronic ulcer of right calf limited to breakdown of skin; I83.222 Varicose veins of left lower extremity with both ulcer of calf and inflammation; L97.221 Non-pressure chronic ulcer of left calf limited to breakdown of skin; I83.023 Varicose veins of left lower extremity with ulcer of ankle; L97.321 Non-pressure chronic ulcer of left ankle limited to breakdown of skin; S90.522D Blister (nonthermal), left ankle, subsequent encounter; E11.22 Type 2 diabetes mellitus with diabetic chronic kidney disease; E78.00 Pure hypercholesterolemia, unspecified; E66.01 Morbid (severe) obesity due to excess calories; E78.5 Hyperlipidemia, unspecified; I13.0 Hypertensive heart and chronic kidney disease with heart failure and stage 1 through stage 4 chronic kidney disease, or unspecified chronic kidney disease; N18.9 Chronic kidney disease, unspecified; I50.33 Acute on chronic diastolic (congestive) heart failure; G47.30 Sleep apnea, unspecified; I48.91 Unspecified atrial fibrillation; J44.9 Chronic obstructive pulmonary disease, unspecified; M19.90 Unspecified osteoarthritis, unspecified site; J81.1 Chronic pulmonary edema; I87.8 Other specified disorders of veins; Z79.01 Long term (current) use of anticoagulants; Z85.038 Personal history of other malignant neoplasm of large intestine; Z99.81 Dependence on supplemental oxygen; Z87.01 Personal history of pneumonia (recurrent); Z79.899 Other long term (current) drug therapy; Z87.891 Personal history of nicotine dependence; Z68.42 Body mass index [BMI] 45.0-49.9, adult; X58.XXXD Exposure to other specified factors, subsequent encounter
CPT/HCPCS: 29581; 36416; 82948; 97597; 97598

== ENCOUNTER 2020-09-10 14:24 | Outpatient (CLI) | payer MEDICARE, OTHER ==
[2020-09-10] MEDS ORDERED: LIDOcaine 2% 5ml jelly ONE (14:37)
== END 2020-09-10 23:59 | disposition home or self-care (01) ==
LOC: WOUND CARE 14:24
PROVIDERS: ATTEND Nurse Practitioner
DX: E11.622 Type 2 diabetes mellitus with other skin ulcer (principal); I83.028 Varicose veins of left lower extremity with ulcer other part of lower leg; L97.822 Non-pressure chronic ulcer of other part of left lower leg with fat layer exposed; I83.018 Varicose veins of right lower extremity with ulcer other part of lower leg; L97.812 Non-pressure chronic ulcer of other part of right lower leg with fat layer exposed; I83.023 Varicose veins of left lower extremity with ulcer of ankle; L97.322 Non-pressure chronic ulcer of left ankle with fat layer exposed; I83.012 Varicose veins of right lower extremity with ulcer of calf; L97.211 Non-pressure chronic ulcer of right calf limited to breakdown of skin; I83.222 Varicose veins of left lower extremity with both ulcer of calf and inflammation; L97.221 Non-pressure chronic ulcer of left calf limited to breakdown of skin; I83.013 Varicose veins of right lower extremity with ulcer of ankle; L97.311 Non-pressure chronic ulcer of right ankle limited to breakdown of skin; S90.522D Blister (nonthermal), left ankle, subsequent encounter; E11.22 Type 2 diabetes mellitus with diabetic chronic kidney disease; E78.00 Pure hypercholesterolemia, unspecified; E66.01 Morbid (severe) obesity due to excess calories; E78.5 Hyperlipidemia, unspecified; I13.0 Hypertensive heart and chronic kidney disease with heart failure and stage 1 through stage 4 chronic kidney disease, or unspecified chronic kidney disease; N18.9 Chronic kidney disease, unspecified; I50.33 Acute on chronic diastolic (congestive) heart failure; G47.30 Sleep apnea, unspecified; I48.91 Unspecified atrial fibrillation; J44.9 Chronic obstructive pulmonary disease, unspecified; M19.90 Unspecified osteoarthritis, unspecified site; J81.1 Chronic pulmonary edema; I87.8 Other specified disorders of veins; Z79.01 Long term (current) use of anticoagulants; Z85.038 Personal history of other malignant neoplasm of large intestine; Z99.81 Dependence on supplemental oxygen; Z87.01 Personal history of pneumonia (recurrent); Z79.899 Other long term (current) drug therapy; Z68.42 Body mass index [BMI] 45.0-49.9, adult; X58.XXXD Exposure to other specified factors, subsequent encounter
CPT/HCPCS: 97597; 97598

== ENCOUNTER 2020-09-17 12:08 | Outpatient (CLI) | payer MEDICARE, OTHER ==
[2020-09-17] MEDS ORDERED: LIDOcaine 2% 5ml jelly ONE (12:37)
== END 2020-09-17 23:59 | disposition home or self-care (01) ==
LOC: WOUND CARE 12:08
PROVIDERS: ATTEND Nurse Practitioner
DX: E11.622 Type 2 diabetes mellitus with other skin ulcer (principal); I83.028 Varicose veins of left lower extremity with ulcer other part of lower leg; L97.822 Non-pressure chronic ulcer of other part of left lower leg with fat layer exposed; I83.018 Varicose veins of right lower extremity with ulcer other part of lower leg; L97.812 Non-pressure chronic ulcer of other part of right lower leg with fat layer exposed; I83.013 Varicose veins of right lower extremity with ulcer of ankle; L97.311 Non-pressure chronic ulcer of right ankle limited to breakdown of skin; I83.012 Varicose veins of right lower extremity with ulcer of calf; L97.211 Non-pressure chronic ulcer of right calf limited to breakdown of skin; I83.222 Varicose veins of left lower extremity with both ulcer of calf and inflammation; L97.221 Non-pressure chronic ulcer of left calf limited to breakdown of skin; I83.023 Varicose veins of left lower extremity with ulcer of ankle; L97.321 Non-pressure chronic ulcer of left ankle limited to breakdown of skin; E11.22 Type 2 diabetes mellitus with diabetic chronic kidney disease; E78.00 Pure hypercholesterolemia, unspecified; E66.01 Morbid (severe) obesity due to excess calories; E78.5 Hyperlipidemia, unspecified; I13.0 Hypertensive heart and chronic kidney disease with heart failure and stage 1 through stage 4 chronic kidney disease, or unspecified chronic kidney disease; N18.9 Chronic kidney disease, unspecified; I50.33 Acute on chronic diastolic (congestive) heart failure; G47.30 Sleep apnea, unspecified; I48.91 Unspecified atrial fibrillation; J44.9 Chronic obstructive pulmonary disease, unspecified; M19.90 Unspecified osteoarthritis, unspecified site; J81.1 Chronic pulmonary edema; I87.8 Other specified disorders of veins; Z79.01 Long term (current) use of anticoagulants; Z85.038 Personal history of other malignant neoplasm of large intestine; Z99.81 Dependence on supplemental oxygen; Z87.01 Personal history of pneumonia (recurrent); Z79.899 Other long term (current) drug therapy; Z87.891 Personal history of nicotine dependence; Z68.42 Body mass index [BMI] 45.0-49.9, adult
CPT/HCPCS: 29581; 82948

== ENCOUNTER 2021-04-25 15:41 | Inpatient (IN) | payer MEDICARE, OTHER ==
[~2021-04-25] VITALS: Ht 167.6 cm; Wt 136.0 kg
[2021-04-25] MEDS ORDERED: pantoprazole 40 MG vial IV ONE (17:05)
[2021-04-25 17:07] LABS: BASOPHILS % (AUTO) 0.5 % (0-1); EOSINOPHILS % (AUTO) 0.3 % (0-6); HEMATOCRIT 34.5 % (35.0-45.0); HEMOGLOBIN 11.2 g/dl (12.0-16.0); LYMPHOCYTES # (AUTO) 1.1 X10'3 (1.1-4.8); LYMPHOCYTES % (AUTO) 10.6 % (21-51); MEAN CORPUSCULAR HEMOGLOBIN 28.5 PG (27.0-31.0); MEAN CORPUSCULAR HGB CONC 32.4 g/dL (33.0-36.5); MEAN CORPUSCULAR VOLUME 87.9 FL (78-98); MEAN PLATELET VOLUME 8.5 FL (7.4-10.4); MONOCYTES # (AUTO) 0.9 X10'3 (0-0.9); MONOCYTES % (AUTO) 8.8 % (2-12); NEUTROPHILS # (AUTO) 8.2 X10'3 (1.8-7.7); NEUTROPHILS % (AUTO) 79.8 % (42-75); PLATELET COUNT 288 X10'3 (140-440); RED BLOOD COUNT 3.93 X10'6 (4.20-5.60); RED CELL DISTRIBUTION WIDTH 18.2 % (11.5-14.5); WHITE BLOOD COUNT 10.3 X10'3 (4.5-11.0)
[2021-04-25 17:11] LABS: PARTIAL THROMBOPLASTIN TIME 27 SECONDS (22-32)
[2021-04-25 17:17] LABS: ALANINE AMINOTRANSFERASE 233 U/L (12-78); ALBUMIN 2.8 G/DL (3.4-5.0); ALBUMIN/GLOBULIN RATIO 0.7 (1.1-1.5); ALKALINE PHOSPHATASE 309 IU/L (46-116); ANION GAP 13 (8-16); ASPARTATE AMINO TRANSFERASE 182 U/L (10-37); BILIRUBIN,TOTAL 1.2 MG/DL (0.1-1.0); BLOOD UREA NITROGEN 92 MG/DL (7-18); BUN/CREATININE RATIO 30.8 (6.6-38.0); CHLORIDE 101 MMOL/L (99-107); CREATININE 2.99 MG/DL (0.40-0.90); GLUCOSE 423 MG/DL (70-104); POTASSIUM 5.8 MMOL/L (3.5-5.1); SODIUM 135 MMOL/L (135-145); TOTAL CARBON DIOXIDE 21.3 MMOL/L (24-32); TOTAL PROTEIN 6.7 G/DL (6.4-8.2); eGFR 15 ML/MIN
[2021-04-25 17:25] LABS: TOTAL CELLS COUNTED 100
[2021-04-25 17:26] LABS: PLATELET ESTIMATE NORMAL
[2021-04-25 17:27] LABS: ANISOCYTOSIS 2+; BURR CELLS FEW; ELLIPTOCYTES 1+; TEAR DROP CELLS 1+
[2021-04-25 17:43] LABS: CLARITY,URINE SLIGHTLY CLOUDY (Clear); COLOR,URINE YELLOW (Yellow); GLUCOSE, URINE NEGATIVE (Neg); KETONES,URINE NEGATIVE (Neg); LEUKOCYTE ESTERASE ,URINE SMALL (Neg); NITRITES, URINE NEGATIVE (Neg); OCCULT BLOOD,URINE TRACE-INTACT (Neg); PROTEIN,URINE 100 mg/dl (Neg); UROBILINOGEN,URINE 0.2 E.U/dL (0.2-1.0)
[2021-04-25 17:44] LABS: UA COLLECTION TYPE STRAIGHT CATH
[2021-04-25 17:54] LABS: HYALINE CASTS 0-3 /LPF (NEGATIVE)
[2021-04-25 17:55] LABS: SQUAMOUS EPITHELIAL CELL,UR FEW /LPF (FEW)
[2021-04-25 17:56] LABS: WBC,URINE 30-50 /HPF (0-4)
[2021-04-25 17:57] LABS: RENAL CELLS, URINE FEW /HPF; TRANSITIONAL EPI CELLS,URINE FEW /HPF
[2021-04-25 17:58] LABS: BACTERIA,URINE 3+ /HPF (Neg); RBC,URINE 0-2 /HPF (0-2)
[2021-04-25] MEDS ORDERED: normal saline 1000ml 1,000 ML IV ONE (18:10)
--- NOTE | 2021-04-25 19:41 | NUR ---
YANIRA RIVAS REPROTS PT TO BE ADMITTED AND REQUEST MED REC TO BE COMPLETED. PT UNSURE OF ALL HER MEDICATIONS.
[2021-04-25] MEDS ORDERED: PEG 3350/Na sulf,bicarb,Cl/KCl oral sol 4 liter bottle PO STA ×2 (19:44→22:34)
[2021-04-25] MEDS ORDERED: METF500T PO (19:48)
--- NOTE | 2021-04-25 20:06 | NUR ---
sba to help pt to bsc to have bm. pt moves very slowly and uses a walker at baseline. pt able to transfer independantly with sba to bsc. Pt awaiting hospitalist. Pts BLE continue to weep. she states this has heen going on for a few days. Reports she was seeing wound care center but is no longer.
--- NOTE | 2021-04-25 20:37 | NUR ---
Dr. Desai at bedside for admission. Pt is a&ox and cooperative. Awaiting ipa.
[2021-04-25] MEDS ORDERED: dextrose 50%-water 50ml dispensing syringe IV PRN ×2 (20:50)
[2021-04-25] MEDS ORDERED: PEG 3350/Na sulf,bicarb,Cl/KCl oral sol 4 liter bottle PO ONE ×2 (20:50→22:30)
[2021-04-25] MEDS ORDERED: MESSAGE TO PHARMACY PO ONE (20:50)
[2021-04-25] MEDS ORDERED: glucagon, human recombinant 1mg kit SUBCUT PRN (20:50)
[2021-04-25] MEDS ORDERED: dextrose ORAL solution 15 GM/59 ML bottle PO PRN ×2 (20:50)
--- NOTE | 2021-04-25 21:30 | NUR ---
Received report from meter inspectorEligio Norton. Patient to follow shortly.
--- NOTE | 2021-04-25 21:40 | NUR ---
Patient arrived to floor via gurney. Patient able to ambulate to bed using FWW. VS. initiated.
[2021-04-25 21:45] VITALS: BP 155/108
--- NOTE | 2021-04-25 22:24 | NUR ---
Called MD regarding elevated BP(patient states she did not take her BP med this AM), no lantus on -dec, and golytely has been cancelled? 1) Monitor BP - if it goes over 180, call again for an order. 2) MD purposely did not order lantus on the hypo/hperglycemic protocol so just cover with humalog, pt. still needs the golytely so re-order it.
[2021-04-25] MEDS: normal saline 1000ml 1,000 ML IV SCH (22:39)
[2021-04-25] MEDS: pantoprazole 40MG/NS 100ML BAG 100 ML IV SCH (22:45)
[2021-04-25] MEDS: insulin Lispro (HumaLOG) vial - multi-dose SQ SCH (22:51)
[2021-04-26] VITALS (9 sets, daily range): BP systolic 118–155; BP diastolic 91–104
[2021-04-26] MEDS: pantoprazole 40MG/NS 100ML BAG 100 ML IV SCH ×5 (03:36→20:00)
[2021-04-26] MEDS ORDERED: acetaminophen 325mg tablet PO PRN ×2 (05:20→17:55)
[2021-04-26 06:12] LABS: BASOPHILS % (AUTO) 0.3 % (0-1); EOSINOPHILS % (AUTO) 0.6 % (0-6); HEMATOCRIT 33.1 % (35.0-45.0); HEMOGLOBIN 10.8 g/dl (12.0-16.0); LYMPHOCYTES # (AUTO) 1.5 X10'3 (1.1-4.8); LYMPHOCYTES % (AUTO) 16.9 % (21-51); MEAN CORPUSCULAR HEMOGLOBIN 28.4 PG (27.0-31.0); MEAN CORPUSCULAR HGB CONC 32.7 g/dL (33.0-36.5); MEAN CORPUSCULAR VOLUME 86.9 FL (78-98); MEAN PLATELET VOLUME 8.5 FL (7.4-10.4); MONOCYTES # (AUTO) 0.9 X10'3 (0-0.9); NEUTROPHILS # (AUTO) 6.3 X10'3 (1.8-7.7); NEUTROPHILS % (AUTO) 72.2 % (42-75); PLATELET COUNT 278 X10'3 (140-440); RED BLOOD COUNT 3.81 X10'6 (4.20-5.60); RED CELL DISTRIBUTION WIDTH 18.1 % (11.5-14.5); WHITE BLOOD COUNT 8.8 X10'3 (4.5-11.0)
[2021-04-26 06:32] LABS: ALANINE AMINOTRANSFERASE 261 U/L (12-78); ALBUMIN 2.8 G/DL (3.4-5.0); ALBUMIN/GLOBULIN RATIO 0.8 (1.1-1.5); ALKALINE PHOSPHATASE 284 IU/L (46-116); ANION GAP 14 (8-16); ASPARTATE AMINO TRANSFERASE 192 U/L (10-37); BLOOD UREA NITROGEN 89 MG/DL (7-18); CALCIUM 8.8 MG/DL (8.5-10.1); CHLORIDE 103 MMOL/L (99-107); CREATININE 2.62 MG/DL (0.40-0.90); GLUCOSE 311 MG/DL (70-104); SODIUM 139 MMOL/L (135-145); TOTAL CARBON DIOXIDE 21.7 MMOL/L (24-32); TOTAL PROTEIN 6.5 G/DL (6.4-8.2); eGFR 18 ML/MIN
--- NOTE | 2021-04-26 06:35 | NUR ---
Problems reprioritized. Patient report given, questions answered & plan of care reviewed with Carmel MORALES.
[2021-04-26] MEDS: metoprolol succinate 25mg (24-HOUR) SR. Tablet PO SCH (07:54)
[2021-04-26] MEDS: insulin Lispro (HumaLOG) vial - multi-dose SQ SCH ×2 (08:41→13:51)
[2021-04-26] MEDS ORDERED: PEG 3350/Na sulf,bicarb,Cl/KCl oral sol 4 liter bottle PO ONE (08:55)
[2021-04-26 09:07] LABS: OCCULT BLOOD STOOL POSITIVE (Neg)
[2021-04-26] MEDS ORDERED: magnesium 4gm in 100ml NS 100 ML IV PRN (10:10)
[2021-04-26] MEDS ORDERED: magnesium Cl slow-release 64mg tablet PO PRN (10:10)
[2021-04-26] MEDS ORDERED: potassium Cl 40MEQ/1/2NS 520ml 520 ML IV PRN (10:10)
[2021-04-26] MEDS ORDERED: potassium Cl 20 mEq SR tablet PO PRN ×2 (10:10)
[2021-04-26] MEDS ORDERED: metoprolol tartrate 1mg/ml inj IV ONE (10:15)
--- NOTE | 2021-04-26 11:11 | NUR ---
Came over to Med/Surg unit to push one time IV lopressor for patient who's HR was 96 and systolic BP 147.
[2021-04-26 14:25] LABS: HEMATOCRIT 32.8 % (35.0-45.0); HEMOGLOBIN 10.6 g/dl (12.0-16.0); MEAN CORPUSCULAR HEMOGLOBIN 27.6 PG (27.0-31.0); MEAN CORPUSCULAR HGB CONC 32.2 g/dL (33.0-36.5); MEAN CORPUSCULAR VOLUME 85.5 FL (78-98); MEAN PLATELET VOLUME 8.1 FL (7.4-10.4); PLATELET COUNT 290 X10'3 (140-440); RED BLOOD COUNT 3.83 X10'6 (4.20-5.60); RED CELL DISTRIBUTION WIDTH 17.5 % (11.5-14.5); WHITE BLOOD COUNT 8.6 X10'3 (4.5-11.0)
--- NOTE | 2021-04-26 15:50 | NUR ---
DM Consult: Pt hx T2DM A1C 9.1 admit DX GIB pending colonoscopy at this time. PO 75% first clear liquid meal. Pt seen by RD for written/verbal DM ed w/ RD contact information provided. Pt reports no questions/concerns regarding DM at this time; does report liking chicken broth as opposed to beef. Dietary notified of preferences. Addendum: 04/26/21 at [address] Amended: Links added.
--- NOTE | 2021-04-26 16:15 | NUR ---
Pt report given to Meena MORALES on PCU. Pt needs to be on tele due to hx of AFIB with RVR which needs to be monitored. provider education specialist gave 1x IV push metoprolol earlier which helped HR at this time. H&H has stayed stable. Pt will keep drinking 2nd round of go lytly and have colonoscopy in AM. Pt will move to pcu 3018A.
--- NOTE | 2021-04-26 16:30 | NUR ---
[facility] I have received report from CARMEN Burt and had the opportunity to ask questions and assume patient care.
[2021-04-26] MEDS ORDERED: sodium polystyrene sulfonate 15gm/60ml oral suspension PO ONE (17:55)
[2021-04-26] MEDS ORDERED: CALCIUM GLUC 1gm/50ml NACL,iso 50 ML IV ONE (17:55)
--- NOTE | 2021-04-26 18:16 | NUR ---
Problems reprioritized. Patient report given, questions answered & plan of care reviewed with CARMEN Worley.
--- NOTE | 2021-04-26 18:17 | NUR ---
Patient in room PCU 3018. I have received report from Precious MORALES and had the opportunity to ask questions and assume patient care.
[2021-04-26] MEDS: K and/or MAG REPLACEMENT MC SCH (20:00)
[2021-04-27] VITALS (12 sets, daily range): BP systolic 127–161; BP diastolic 63–113
--- NOTE | 2021-04-27 00:17 | NUR ---
pt has been struggling to get go lytely down and initally did not want to take kayexalate. rectal tube in place and wick in place. pt has been using bed brownlee and she has a hard time turning and the frequency of the need was too much. she is now also drinking more go lyetly although she stated she is slightly nauseous. home cpap set up by RT. linens and gown changed, pt states she had been using puracol on wounds but is no longer seeing wound center. woc has been ordered.
[2021-04-27] MEDS: pantoprazole 40MG/NS 100ML BAG 100 ML IV SCH ×5 (01:51→21:00)
--- NOTE | 2021-04-27 01:58 | NUR ---
PT HAS REPEATEDLY STATED HER UNDERSTANDING OF WHY IT IS IMPORTANT TO FINISH THE GO LYTELY BUT SHE HAS NOT YET BEEN ABLE TO DO SO.
--- NOTE | 2021-04-27 07:17 | NUR ---
Problems reprioritized. Patient report given, questions answered & plan of care reviewed with Huy rangel. PATIENT STILL DRINKING GO LYTELY
[2021-04-27] MEDS: K and/or MAG REPLACEMENT MC SCH ×2 (08:00→20:00)
[2021-04-27 08:03] LABS: BASOPHILS % (AUTO) 0.7 % (0-1); HEMOGLOBIN 10.9 g/dl (12.0-16.0); LYMPHOCYTES # (AUTO) 1.7 X10'3 (1.1-4.8); LYMPHOCYTES % (AUTO) 23.1 % (21-51); MEAN CORPUSCULAR HEMOGLOBIN 27.4 PG (27.0-31.0); MEAN CORPUSCULAR HGB CONC 32.2 g/dL (33.0-36.5); MEAN CORPUSCULAR VOLUME 85.1 FL (78-98); MEAN PLATELET VOLUME 8.5 FL (7.4-10.4); MONOCYTES # (AUTO) 0.7 X10'3 (0-0.9); MONOCYTES % (AUTO) 9.6 % (2-12); NEUTROPHILS # (AUTO) 4.8 X10'3 (1.8-7.7); NEUTROPHILS % (AUTO) 64.6 % (42-75); PLATELET COUNT 267 X10'3 (140-440); RED BLOOD COUNT 3.99 X10'6 (4.20-5.60); RED CELL DISTRIBUTION WIDTH 17.7 % (11.5-14.5); WHITE BLOOD COUNT 7.5 X10'3 (4.5-11.0)
[2021-04-27 08:04] LABS: EOSINOPHILS # (AUTO) 0.1 X10'3 (0-0.9)
[2021-04-27 08:18] LABS: ALANINE AMINOTRANSFERASE 287 U/L (12-78); ALBUMIN 2.4 G/DL (3.4-5.0); ALBUMIN/GLOBULIN RATIO 0.6 (1.1-1.5); ALKALINE PHOSPHATASE 277 IU/L (46-116); ANION GAP 12 (8-16); ASPARTATE AMINO TRANSFERASE 185 U/L (10-37); BILIRUBIN,TOTAL 1.2 MG/DL (0.1-1.0); BLOOD UREA NITROGEN 69 MG/DL (7-18); BUN/CREATININE RATIO 29.7 (6.6-38.0); CALCIUM 8.4 MG/DL (8.5-10.1); CHLORIDE 104 MMOL/L (99-107); CREATININE 2.32 MG/DL (0.40-0.90); GLUCOSE 175 MG/DL (70-104); MAGNESIUM 2.3 MG/DL (1.5-2.4); PHOSPHORUS 4.2 MG/DL (2.3-4.5); POTASSIUM 4.1 MMOL/L (3.5-5.1); SODIUM 139 MMOL/L (135-145); TOTAL CARBON DIOXIDE 22.6 MMOL/L (24-32); TOTAL PROTEIN 6.2 G/DL (6.4-8.2); eGFR 21 ML/MIN
[2021-04-27] MEDS: normal saline 1000ml 1,000 ML IV SCH ×2 (08:37→15:52)
[2021-04-27] MEDS: nystatin 15 GM powder TP SCH ×3 (08:44→21:00)
[2021-04-27] MEDS: metoprolol succinate 25mg (24-HOUR) SR. Tablet PO SCH (08:44)
[2021-04-27] MEDS: CefTRIAXone 2gm/D5W 50ml BAG 50 ML IV SCH (08:44)
[2021-04-27] MEDS: ondansetron/PF 4mg/2ml inj IV PRN (08:46)
--- NOTE | 2021-04-27 12:00 | NUR ---
Patient in procedure, unable to obtain noon finger stick blood sugar.
[2021-04-27] MEDS ORDERED: fentaNYL/PF 50MCG/1 ML 2ML syringe ONE ×2 (12:57→12:58)
[2021-04-27] MEDS ORDERED: MIDAZolam 1 MG/ML 5ML VIAL ONE ×2 (12:58)
--- NOTE | 2021-04-27 18:42 | NUR ---
Problems reprioritized. Patient report given, questions answered & plan of care reviewed with CARMEN Lujan.
[2021-04-27] MEDS: lactobacillus rhamnosus 10,000 MMU CELLS/CAPSULE PO SCH (19:53)
[2021-04-27] MEDS: insulin Lispro (HumaLOG) vial - multi-dose SQ SCH (20:01)
[2021-04-28] MEDS: pantoprazole 40MG/NS 100ML BAG 100 ML IV SCH ×3 (01:30→10:47)
[2021-04-28 06:00] VITALS: BP 174/94
--- NOTE | 2021-04-28 06:15 | NUR ---
Patient in room PCU 3018. I have received report from CARMEN Lujan and had the opportunity to ask questions and assume patient care.
[2021-04-28] MEDS: normal saline 1000ml 1,000 ML IV SCH (06:49)
[2021-04-28 07:11] LABS: BASOPHILS % (AUTO) 0.5 % (0-1); EOSINOPHILS # (AUTO) 0.1 X10'3 (0-0.9); EOSINOPHILS % (AUTO) 1.8 % (0-6); HEMATOCRIT 36.2 % (35.0-45.0); HEMOGLOBIN 11.4 g/dl (12.0-16.0); LYMPHOCYTES # (AUTO) 1.4 X10'3 (1.1-4.8); LYMPHOCYTES % (AUTO) 20.2 % (21-51); MEAN CORPUSCULAR HEMOGLOBIN 27.4 PG (27.0-31.0); MEAN CORPUSCULAR HGB CONC 31.4 g/dL (33.0-36.5); MEAN CORPUSCULAR VOLUME 87.4 FL (78-98); MEAN PLATELET VOLUME 8.4 FL (7.4-10.4); MONOCYTES # (AUTO) 0.7 X10'3 (0-0.9); MONOCYTES % (AUTO) 10.8 % (2-12); NEUTROPHILS # (AUTO) 4.5 X10'3 (1.8-7.7); NEUTROPHILS % (AUTO) 66.7 % (42-75); PLATELET COUNT 228 X10'3 (140-440); RED BLOOD COUNT 4.14 X10'6 (4.20-5.60); RED CELL DISTRIBUTION WIDTH 18.4 % (11.5-14.5); WHITE BLOOD COUNT 6.7 X10'3 (4.5-11.0)
[2021-04-28 07:43] LABS: ALANINE AMINOTRANSFERASE 281 U/L (12-78); ALBUMIN 2.3 G/DL (3.4-5.0); ALBUMIN/GLOBULIN RATIO 0.6 (1.1-1.5); ALKALINE PHOSPHATASE 249 IU/L (46-116); ANION GAP 14 (8-16); ASPARTATE AMINO TRANSFERASE 163 U/L (10-37); BLOOD UREA NITROGEN 62 MG/DL (7-18); BUN/CREATININE RATIO 28.8 (6.6-38.0); CALCIUM 8.3 MG/DL (8.5-10.1); CHLORIDE 107 MMOL/L (99-107); CREATININE 2.15 MG/DL (0.40-0.90); GLUCOSE 147 MG/DL (70-104); MAGNESIUM 2.1 MG/DL (1.5-2.4); PHOSPHORUS 4.7 MG/DL (2.3-4.5); SODIUM 142 MMOL/L (135-145); TOTAL CARBON DIOXIDE 20.9 MMOL/L (24-32); TOTAL PROTEIN 6.1 G/DL (6.4-8.2); eGFR 22 ML/MIN
[2021-04-28] MEDS: nystatin 15 GM powder TP SCH ×3 (08:00→20:17)
[2021-04-28] MEDS: K and/or MAG REPLACEMENT MC SCH (08:00)
[2021-04-28] MEDS: metoprolol succinate 25mg (24-HOUR) SR. Tablet PO SCH (09:27)
[2021-04-28] MEDS: CefTRIAXone 2gm/D5W 50ml BAG 50 ML IV SCH (09:27)
[2021-04-28] MEDS: lactobacillus rhamnosus 10,000 MMU CELLS/CAPSULE PO SCH ×2 (09:27→20:17)
[2021-04-28] MEDS: insulin Lispro (HumaLOG) vial - multi-dose SQ SCH ×3 (09:34→20:21)
[2021-04-28 11:00] VITALS: BP 171/94
--- NOTE | 2021-04-28 12:53 | NUR ---
Bibianad Clarisa PAGER ID: [phone] MESSAGE: JOSE Goss 3018F; BP 171/94, no PRNs ordered. Meena MORALES [phone]
[2021-04-28 15:00] VITALS: BP 151/86
--- NOTE | 2021-04-28 18:35 | NUR ---
Problems reprioritized. Patient report given, questions answered & plan of care reviewed with CARMEN Lujan.
[2021-04-28 19:00] VITALS: BP 158/99
[2021-04-28 23:00] VITALS: BP 151/96
[2021-04-29 03:00] VITALS: BP 149/110
[2021-04-29 07:06] LABS: BASOPHILS # (AUTO) 0.1 X10'3 (0-0.2); BASOPHILS % (AUTO) 0.7 % (0-1); EOSINOPHILS # (AUTO) 0.2 X10'3 (0-0.9); EOSINOPHILS % (AUTO) 2.2 % (0-6); HEMATOCRIT 36.1 % (35.0-45.0); HEMOGLOBIN 11.2 g/dl (12.0-16.0); LYMPHOCYTES # (AUTO) 1.4 X10'3 (1.1-4.8); LYMPHOCYTES % (AUTO) 18.4 % (21-51); MEAN CORPUSCULAR HEMOGLOBIN 27.5 PG (27.0-31.0); MEAN CORPUSCULAR HGB CONC 31.1 g/dL (33.0-36.5); MEAN CORPUSCULAR VOLUME 88.4 FL (78-98); MEAN PLATELET VOLUME 8.2 FL (7.4-10.4); MONOCYTES # (AUTO) 0.9 X10'3 (0-0.9); MONOCYTES % (AUTO) 11.7 % (2-12); PLATELET COUNT 223 X10'3 (140-440); RED BLOOD COUNT 4.08 X10'6 (4.20-5.60); RED CELL DISTRIBUTION WIDTH 18.9 % (11.5-14.5); WHITE BLOOD COUNT 7.5 X10'3 (4.5-11.0)
[2021-04-29 07:35] LABS: ALANINE AMINOTRANSFERASE 249 U/L (12-78); ALBUMIN 2.3 G/DL (3.4-5.0); ALBUMIN/GLOBULIN RATIO 0.6 (1.1-1.5); ALKALINE PHOSPHATASE 226 IU/L (46-116); ANION GAP 13 (8-16); ASPARTATE AMINO TRANSFERASE 120 U/L (10-37); BILIRUBIN,TOTAL 0.8 MG/DL (0.1-1.0); BLOOD UREA NITROGEN 50 MG/DL (7-18); BUN/CREATININE RATIO 25.5 (6.6-38.0); CALCIUM 8.3 MG/DL (8.5-10.1); CHLORIDE 108 MMOL/L (99-107); CREATININE 1.96 MG/DL (0.40-0.90); GLUCOSE 93 MG/DL (70-104); MAGNESIUM 2.1 MG/DL (1.5-2.4); POTASSIUM 3.5 MMOL/L (3.5-5.1); SODIUM 142 MMOL/L (135-145); TOTAL CARBON DIOXIDE 21.3 MMOL/L (24-32); TOTAL PROTEIN 5.9 G/DL (6.4-8.2); eGFR 25 ML/MIN
[2021-04-29] MEDS: lactobacillus rhamnosus 10,000 MMU CELLS/CAPSULE PO SCH (07:48)
[2021-04-29] MEDS: metoprolol succinate 25mg (24-HOUR) SR. Tablet PO SCH (07:48)
[2021-04-29] MEDS: CefTRIAXone 2gm/D5W 50ml BAG 50 ML IV SCH (07:48)
[2021-04-29] MEDS: normal saline 1000ml 1,000 ML IV SCH ×2 (07:48→11:25)
[2021-04-29] MEDS: nystatin 15 GM powder TP SCH ×2 (07:49→13:00)
[2021-04-29 08:00] VITALS: BP 155/99
[2021-04-29] MEDS: K and/or MAG REPLACEMENT MC SCH (08:00)
[2021-04-29] MEDS ORDERED: SINCALIDE IV ONE ×2 (09:45→13:20)
[2021-04-29] MEDS ORDERED: NORMAL SALINE IV ONE ×2 (09:45→13:20)
[2021-04-29 10:50] LABS: HBSAG SCREEN Negative (Negative); HEPATITIS C ANTIBODY <0.1 s/co ratio (0.0-0.9)
[2021-04-29 11:00] VITALS: BP 150/95
--- NOTE | 2021-04-29 12:16 | NUR ---
PATIENT PICKED UP FOR [facility]
--- NOTE | 2021-04-29 12:17 | NUR ---
PATIENT AT [facility] SCAN. NOT ON FLOOR. Addendum: 04/29/21 at 1217 by Gavi Jones RN Amended: Links added.
[2021-04-29] MEDS: ondansetron/PF 4mg/2ml inj IV PRN (14:39)
[2021-04-29 15:00] VITALS: BP 180/102
--- NOTE | 2021-04-29 15:24 | NUR ---
REPORT FROM [facility] IS BACK. CALLED CASE MANAGEMENT TO NOTIFY. SHE WILL NOTIFY DR. DE LEON.
--- NOTE | 2021-04-29 17:03 | NUR ---
NOT DONE. PATIENT BEING PICKED UP FOR TRANSFER AT 1700 Addendum: 04/29/21 at 1704 by Gavi Jones RN Amended: Links added.
--- NOTE | 2021-04-29 17:23 | NUR ---
PATIENT STABLE AND APPROPRIATE FOR TRANSFER TO [facility]. IV REMOVED, ALL BELONGINGS TAKEN FROM ROOM. REPORT CALLED TO LES RAYGOZA AT [facility], ALL QUESTIONS ANSWERED. Addendum: 04/29/21 at 1730 by Gavi Jones RN RESEARCH MECHANIC REMOVED
== END 2021-04-29 18:02 | DRG 377 ==
LOC: ER 15:42 → ED HOLD 20:42 → SUR 3N 21:30 → PCU 3S 04-26 16:55
PROVIDERS: ADMIT Internal Medicine; ATTEND Family Medicine
PROC: 0DBP8ZZ Excision of Rectum, Via Natural or Artificial Opening Endoscopic (ICD-10-PCS; principal; 2021-04-27)
PROC: 5A09357 Assistance with Respiratory Ventilation, Less than 24 Consecutive Hours, Continuous Positive Airway Pressure (ICD-10-PCS; 2021-04-27)
PROC: 5A09357 Assistance with Respiratory Ventilation, Less than 24 Consecutive Hours, Continuous Positive Airway Pressure (ICD-10-PCS; 2021-04-28)
PROC: 5A09357 Assistance with Respiratory Ventilation, Less than 24 Consecutive Hours, Continuous Positive Airway Pressure (ICD-10-PCS; 2021-04-29)
PROC: CF1C1ZZ Planar Nuclear Medicine Imaging of Hepatobiliary System, All using Technetium 99m (Tc-99m) (ICD-10-PCS; 2021-04-29)
DX: K57.91 Diverticulosis of intestine, part unspecified, without perforation or abscess with bleeding (principal); I50.33 Acute on chronic diastolic (congestive) heart failure; I13.0 Hypertensive heart and chronic kidney disease with heart failure and stage 1 through stage 4 chronic kidney disease, or unspecified chronic kidney disease; N18.4 Chronic kidney disease, stage 4 (severe); N17.9 Acute kidney failure, unspecified; K80.10 Calculus of gallbladder with chronic cholecystitis without obstruction; D62 Acute posthemorrhagic anemia; Z68.42 Body mass index [BMI] 45.0-49.9, adult; D68.32 Hemorrhagic disorder due to extrinsic circulating anticoagulants; G47.33 Obstructive sleep apnea (adult) (pediatric); E87.5 Hyperkalemia; J44.9 Chronic obstructive pulmonary disease, unspecified; E78.00 Pure hypercholesterolemia, unspecified; E11.22 Type 2 diabetes mellitus with diabetic chronic kidney disease; E78.5 Hyperlipidemia, unspecified; E86.0 Dehydration; I48.91 Unspecified atrial fibrillation; K64.8 Other hemorrhoids; E66.01 Morbid (severe) obesity due to excess calories; K62.1 Rectal polyp; M25.561 Pain in right knee; M25.562 Pain in left knee; R74.8 Abnormal levels of other serum enzymes; R51.9 Headache, unspecified; S80.811A Abrasion, right lower leg, initial encounter; E11.65 Type 2 diabetes mellitus with hyperglycemia; R79.89 Other specified abnormal findings of blood chemistry; R94.5 Abnormal results of liver function studies; K64.9 Unspecified hemorrhoids; M10.9 Gout, unspecified; T45.515A Adverse effect of anticoagulants, initial encounter; W18.2XXA Fall in (into) shower or empty bathtub, initial encounter; Y93.E1 Activity, personal bathing and showering; Z79.01 Long term (current) use of anticoagulants; Z85.038 Personal history of other malignant neoplasm of large intestine; Z87.19 Personal history of other diseases of the digestive system; Z98.0 Intestinal bypass and anastomosis status; Y92.091 Bathroom in other non-institutional residence as the place of occurrence of the external cause; Z79.899 Other long term (current) drug therapy
CPT/HCPCS: 36415; 45385; 71045; 76700; 78227; 80053; 81001; 82272; 82948; 83036; 83735; 83880; 84100; 84484; 85007; 85025; 85027; 85610; 85730; 86705; 86706; 86803; 86885; 86900; 86901; 87077; 87081; 87088; 87186; 87340; 88305; 93005; 93306; 94760; 96374; 97110; 97162; 97530; 99152; 99153; 99285; A4620; A9537; C1773; C9113; G0378; J0696; J1815; J2250; J2405; J2805; J3010; J3490; J7030; J7040

== ENCOUNTER 2021-06-18 17:31 | Emergency (ER) | payer MEDICARE, OTHER ==
[~2021-06-18] VITALS: Ht 167.6 cm; Wt 136.4 kg
[~2021-06-18 17:31] MED LIST changes: -APIX5TAB3 PO; -CIPR2.5D14 LEFTEYE; -FURO20TA4 PO; -INSU100V13 SQ; +METF500T PO; -POTA-82 PO
[2021-06-18 18:28] VITALS: BP 119/82
[2021-06-18 19:39] LABS: ALANINE AMINOTRANSFERASE 220 U/L (12-78); ALBUMIN/GLOBULIN RATIO 0.8 (1.1-1.5); ALKALINE PHOSPHATASE 317 IU/L (46-116); ANION GAP 15 (8-16); ASPARTATE AMINO TRANSFERASE 207 U/L (10-37); BASOPHILS % (AUTO) 0.6 % (0-1); BILIRUBIN,TOTAL 1.3 MG/DL (0.1-1.0); BLOOD UREA NITROGEN 75 MG/DL (7-18); BUN/CREATININE RATIO 22.3 (6.6-38.0); CALCIUM 8.2 MG/DL (8.5-10.1); CHLORIDE 101 MMOL/L (99-107); CREATININE 3.37 MG/DL (0.40-0.90); EOSINOPHILS # (AUTO) 0.1 X10'3 (0-0.9); EOSINOPHILS % (AUTO) 1.2 % (0-6); GLUCOSE 201 MG/DL (70-104); HEMATOCRIT 30.9 % (35.0-45.0); HEMOGLOBIN 9.8 g/dl (12.0-16.0); LIPASE 160 U/L (73-393); LYMPHOCYTES # (AUTO) 1.4 X10'3 (1.1-4.8); LYMPHOCYTES % (AUTO) 20.7 % (21-51); MEAN CORPUSCULAR HEMOGLOBIN 27.2 PG (27.0-31.0); MEAN CORPUSCULAR HGB CONC 31.6 g/dL (33.0-36.5); MEAN CORPUSCULAR VOLUME 86.1 FL (78-98); MEAN PLATELET VOLUME 8.8 FL (7.4-10.4); MONOCYTES # (AUTO) 0.8 X10'3 (0-0.9); MONOCYTES % (AUTO) 11.9 % (2-12); NEUTROPHILS # (AUTO) 4.4 X10'3 (1.8-7.7); NEUTROPHILS % (AUTO) 65.6 % (42-75); PLATELET COUNT 214 X10'3 (140-440); POTASSIUM 4.4 MMOL/L (3.5-5.1); RED BLOOD COUNT 3.59 X10'6 (4.20-5.60); RED CELL DISTRIBUTION WIDTH 20.1 % (11.5-14.5); SODIUM 137 MMOL/L (135-145); TOTAL CARBON DIOXIDE 20.9 MMOL/L (24-32); TOTAL PROTEIN 6.8 G/DL (6.4-8.2); WHITE BLOOD COUNT 6.7 X10'3 (4.5-11.0); eGFR 13 ML/MIN
[2021-06-18] MEDS ORDERED: ondansetron 4mg rapidly disintigrating tab PO ONE (19:50)
[2021-06-18] MEDS ORDERED: MULT-1085 PO (19:59)
[2021-06-18] MEDS ORDERED: INSU100I31 SUBCUT (19:59)
[2021-06-18] MEDS ORDERED: OMEP20TA23 PO (19:59)
[2021-06-18] MEDS ORDERED: INSU100V43 SUBCUT (20:04)
--- NOTE | 2021-06-18 20:20 | NUR ---
ESME FOR DR. MERINO FOR HEMOCULT. HE REORTS ONLY A FAINT RESULT OF POSITIVE ON CARD. PT TO BE DISCHARGED.
[2021-06-18 20:21] LABS: PLATELET ESTIMATE NORMAL
[2021-06-18 20:22] LABS: ANISOCYTOSIS 3+
--- NOTE | 2021-06-18 20:23 | NUR ---
DR. MERINO TO NE PATIENT. OK IF PT HAD NOT PROVIDED URINIE SAMPLE.
--- NOTE | 2021-06-18 21:25 | NUR ---
Transport Iain stephens, here to transport Pt back to [facility]. Pt going in WC with O2. Pt able to sit to dangle with 1 person assist and able to stand and pivot into wc using walker independantly.
[2021-06-18 22:05] LABS: OCCULT BLOOD STOOL POSITIVE (Neg)
== END 2021-06-18 21:42 | disposition home or self-care (01) ==
LOC: ER 17:32
DX: R53.1 Weakness (principal); R11.0 Nausea; R63.0 Anorexia; I48.91 Unspecified atrial fibrillation; E78.00 Pure hypercholesterolemia, unspecified; J44.9 Chronic obstructive pulmonary disease, unspecified; I13.0 Hypertensive heart and chronic kidney disease with heart failure and stage 1 through stage 4 chronic kidney disease, or unspecified chronic kidney disease; E11.22 Type 2 diabetes mellitus with diabetic chronic kidney disease; N18.9 Chronic kidney disease, unspecified; Z87.01 Personal history of pneumonia (recurrent); Z85.038 Personal history of other malignant neoplasm of large intestine; Z79.899 Other long term (current) drug therapy
CPT/HCPCS: 36415; 80053; 82272; 82948; 83690; 85008; 85025; 86885; 86900; 86901; 99284

== ENCOUNTER 2021-06-22 16:07 | Inpatient (IN) | payer MEDICARE, OTHER ==
[~2021-06-22] VITALS: Ht 167.6 cm; Wt 146.0 kg
[~2021-06-22 16:07] MED LIST changes: -INSU100V12 SQ; +INSU100V43 SUBCUT; +MULT-1085 PO; +OMEP20TA23 PO
[2021-06-22] MEDS ORDERED: LIDOcaine 2% 10ml TOPICAL JELLY (Urojet) TP ONE ×2 (16:25→19:30)
[2021-06-22 17:03] LABS: BASOPHILS # (AUTO) 0.1 X10'3 (0-0.2); BASOPHILS % (AUTO) 0.7 % (0-1); EOSINOPHILS # (AUTO) 0.1 X10'3 (0-0.9); HEMATOCRIT 30.5 % (35.0-45.0); HEMOGLOBIN 9.8 g/dl (12.0-16.0); LYMPHOCYTES # (AUTO) 1.4 X10'3 (1.1-4.8); LYMPHOCYTES % (AUTO) 18.3 % (21-51); MEAN CORPUSCULAR HEMOGLOBIN 27.2 PG (27.0-31.0); MEAN CORPUSCULAR HGB CONC 32.2 g/dL (33.0-36.5); MEAN CORPUSCULAR VOLUME 84.4 FL (78-98); MEAN PLATELET VOLUME 8.3 FL (7.4-10.4); MONOCYTES # (AUTO) 0.9 X10'3 (0-0.9); MONOCYTES % (AUTO) 10.9 % (2-12); NEUTROPHILS # (AUTO) 5.5 X10'3 (1.8-7.7); NEUTROPHILS % (AUTO) 69.1 % (42-75); PLATELET COUNT 179 X10'3 (140-440); RED BLOOD COUNT 3.61 X10'6 (4.20-5.60); RED CELL DISTRIBUTION WIDTH 20.4 % (11.5-14.5); WHITE BLOOD COUNT 7.9 X10'3 (4.5-11.0)
[2021-06-22 17:20] LABS: ALANINE AMINOTRANSFERASE 242 U/L (12-78); ALBUMIN 2.8 G/DL (3.4-5.0); ALBUMIN/GLOBULIN RATIO 0.8 (1.1-1.5); ALKALINE PHOSPHATASE 453 IU/L (46-116); ANION GAP 12 (8-16); ASPARTATE AMINO TRANSFERASE 164 U/L (10-37); BILIRUBIN,TOTAL 1.6 MG/DL (0.1-1.0); BLOOD UREA NITROGEN 77 MG/DL (7-18); BUN/CREATININE RATIO 19.9 (6.6-38.0); CALCIUM 8.1 MG/DL (8.5-10.1); CHLORIDE 100 MMOL/L (99-107); CREATININE 3.87 MG/DL (0.40-0.90); GLUCOSE 196 MG/DL (70-104); POTASSIUM 4.7 MMOL/L (3.5-5.1); SODIUM 134 MMOL/L (135-145); TOTAL PROTEIN 6.5 G/DL (6.4-8.2); eGFR 11 ML/MIN
[2021-06-22 17:27] LABS: MAGNESIUM 2.2 MG/DL (1.5-2.4); PHOSPHORUS 5.6 MG/DL (2.3-4.5)
[2021-06-22 17:40] LABS: ANISOCYTOSIS 3+; HYPOCHROMASIA 1+; PLATELET ESTIMATE NORMAL; POLYCHROMASIA FEW
[2021-06-22 17:41] LABS: BURR CELLS FEW; ELLIPTOCYTES 1+; SCHISTOCYTES FEW; TEAR DROP CELLS FEW
[2021-06-22] MEDS ORDERED: POTA-82 PO (17:43)
[2021-06-22] MEDS ORDERED: METF-438 PO (17:43)
[2021-06-22 18:21] LABS: CLARITY,URINE CLOUDY (Clear); COLOR,URINE YELLOW (Yellow); GLUCOSE, URINE NEGATIVE (Neg); KETONES,URINE NEGATIVE (Neg); LEUKOCYTE ESTERASE ,URINE MODERATE (Neg); NITRITES, URINE NEGATIVE (Neg); OCCULT BLOOD,URINE MODERATE (Neg); PH,URINE 5.5 (4.8-8.0); PROTEIN,URINE 30 mg/dl (Neg); UROBILINOGEN,URINE 0.2 E.U/dL (0.2-1.0)
[2021-06-22 18:23] LABS: UA COLLECTION TYPE FOLEY CATH
[2021-06-22 18:33] LABS: BACTERIA,URINE 3+ /HPF (Neg); MUCUS STRANDS FEW /LPF (Neg); SQUAMOUS EPITHELIAL CELL,UR MODERATE /LPF (FEW); WBC,URINE 50-100 /HPF (0-4)
[2021-06-22 18:34] LABS: TRANSITIONAL EPI CELLS,URINE FEW /HPF; WBC CLUMPS,URINE MODERATE /HPF (NEGATIVE)
--- NOTE | 2021-06-22 18:50 | NUR ---
pt reports mild hunger and requests some chicken soup. She does report intermittent nausea and states her hunger has been minimal lately. states her primary Kidney MD is Dr. Rhodes, but she has recently seen Dr. Campos. Current accucheck 173 and vss. Remains in afib. Afebrile.
--- NOTE | 2021-06-22 19:29 | NUR ---
DR CORNELL AT BEDSIDE FOR ADMISSION.
[2021-06-22] MEDS ORDERED: magnesium 4gm in 100ml NS 100 ML IV PRN (19:30)
[2021-06-22] MEDS ORDERED: magnesium Cl slow-release 64mg tablet PO PRN (19:30)
[2021-06-22] MEDS ORDERED: ondansetron/PF 4mg/2ml inj IV PRN (19:30)
[2021-06-22] MEDS ORDERED: potassium Cl 40MEQ/1/2NS 520ml 520 ML IV PRN ×2 (19:30)
[2021-06-22] MEDS ORDERED: magnesium 2GM in 50ml NS 50 ML IV PRN (19:30)
[2021-06-22] MEDS ORDERED: potassium Cl 20 mEq SR tablet PO PRN ×2 (19:30)
[2021-06-22] MEDS ORDERED: acetaminophen 325mg tablet PO PRN (19:30)
[2021-06-22] MEDS: heparin, porcine 5000 units/ml vial SQ SCH (20:00)
[2021-06-22] MEDS: K and/or MAG REPLACEMENT MC SCH ×2 (20:00→23:35)
--- NOTE | 2021-06-22 20:30 | NUR ---
Patient in room ED RM 15. I have received report from Cierra MORALES in the ED and had the opportunity to ask questions and will assume patient care when pt arrived to unit.
--- NOTE | 2021-06-22 21:00 | NUR ---
pt arrived to unit, placed on tele, VSS, on 4L NC with O2 sats @98% even rise and fall of chest. will continue to monitor
--- NOTE | 2021-06-22 22:59 | NUR ---
Pt declined SQ heparin, stated that she's "already on blood thinners"
--- NOTE | 2021-06-23 00:59 | NUR ---
Pt came into the Er this shift with an indwelling catheter in place from [facility] that she came from. ER nurse this evening replaced it and put in a new catheter. Urine color is light yellow with some sediment. Fc draining to gravity with good output > 400ml this shift so far Addendum: 06/23/21 at 0105 by Winston Pena RN Amended: Links added.
[2021-06-23 05:57] LABS: BASOPHILS # (AUTO) 0.1 X10'3 (0-0.2); BASOPHILS % (AUTO) 0.9 % (0-1); EOSINOPHILS # (AUTO) 0.1 X10'3 (0-0.9); HEMATOCRIT 31.9 % (35.0-45.0); HEMOGLOBIN 10.1 g/dl (12.0-16.0); LYMPHOCYTES # (AUTO) 1.8 X10'3 (1.1-4.8); MEAN CORPUSCULAR HEMOGLOBIN 26.9 PG (27.0-31.0); MEAN CORPUSCULAR HGB CONC 31.7 g/dL (33.0-36.5); MEAN CORPUSCULAR VOLUME 84.6 FL (78-98); MEAN PLATELET VOLUME 8.7 FL (7.4-10.4); MONOCYTES # (AUTO) 0.9 X10'3 (0-0.9); MONOCYTES % (AUTO) 12.5 % (2-12); NEUTROPHILS # (AUTO) 4.5 X10'3 (1.8-7.7); NEUTROPHILS % (AUTO) 60.6 % (42-75); PLATELET COUNT 176 X10'3 (140-440); RED BLOOD COUNT 3.77 X10'6 (4.20-5.60); RED CELL DISTRIBUTION WIDTH 20.3 % (11.5-14.5); WHITE BLOOD COUNT 7.4 X10'3 (4.5-11.0)
[2021-06-23 05:59] LABS: ALBUMIN 2.8 G/DL (3.4-5.0); ANION GAP 12 (8-16); BLOOD UREA NITROGEN 80 MG/DL (7-18); BUN/CREATININE RATIO 21.3 (6.6-38.0); CALCIUM 8.4 MG/DL (8.5-10.1); CHLORIDE 101 MMOL/L (99-107); CREATININE 3.75 MG/DL (0.40-0.90); GLUCOSE 128 MG/DL (70-104); MAGNESIUM 2.2 MG/DL (1.5-2.4); POTASSIUM 4.7 MMOL/L (3.5-5.1); SODIUM 135 MMOL/L (135-145); TOTAL CARBON DIOXIDE 21.8 MMOL/L (24-32); eGFR 12 ML/MIN
[2021-06-23 06:00] VITALS: BP 112/73
--- NOTE | 2021-06-23 06:24 | NUR ---
Problems reprioritized. Patient report given, questions answered & plan of care reviewed with Taylor MORALES.
--- NOTE | 2021-06-23 06:42 | NUR ---
Patient in room PCU 3028. I have received report from CARMEN Montero and had the opportunity to ask questions and assume patient care.
--- NOTE | 2021-06-23 06:49 | NUR ---
Patient in room PCU 3028. I have received report from CARMEN Montero and had the opportunity to ask questions and assume patient care.
[2021-06-23] MEDS: heparin, porcine 5000 units/ml vial SQ SCH ×2 (08:00→21:22)
--- NOTE | 2021-06-23 10:13 | NUR ---
Orders for lasix gtt at high concentration at 10mg/hr put in per Dr. Campos. Renal panel to be ordered every 6 hours per protocol.
[2021-06-23 11:00] VITALS: BP 144/72
[2021-06-23] MEDS: furosemide inj 1,000 MG in normal saline 250ml IV soln 150 ML IV SCH (11:13)
[2021-06-23] MEDS: atorvastatin 10mg tablet PO SCH (13:45)
[2021-06-23 15:00] VITALS: BP 130/86
[2021-06-23 17:04] LABS: ALBUMIN 2.9 G/DL (3.4-5.0); ANION GAP 10 (8-16); BLOOD UREA NITROGEN 80 MG/DL (7-18); BUN/CREATININE RATIO 21.4 (6.6-38.0); CALCIUM 8.3 MG/DL (8.5-10.1); CHLORIDE 101 MMOL/L (99-107); CREATININE 3.74 MG/DL (0.40-0.90); GLUCOSE 180 MG/DL (70-104); PHOSPHORUS 5.9 MG/DL (2.3-4.5); SODIUM 135 MMOL/L (135-145); TOTAL CARBON DIOXIDE 24.3 MMOL/L (24-32); eGFR 12 ML/MIN
[2021-06-23 18:00] VITALS: BP 121/80
--- NOTE | 2021-06-23 18:22 | NUR ---
[place] documentation: I have reviewed and agree with all interventions, assessments performed and documented by CARMEN Guillen.
--- NOTE | 2021-06-23 18:22 | NUR ---
[place] Medication Administration: For this medication-pass time frame, all medication were reviewed, dispensed, administered and documented per hospital policy by CARMEN Guillen.
--- NOTE | 2021-06-23 18:27 | NUR ---
Problems reprioritized. Patient report given, questions answered & plan of care reviewed with CARMEN Montero/CARMEN Louis. Pt sitting on the edge of bed, resting comfortably, no signs of distress noted. All pt needs met at this time.
--- NOTE | 2021-06-23 18:28 | NUR ---
Problems reprioritized. Patient report given, questions answered & plan of care reviewed with CARMEN lieberman.
[2021-06-23] MEDS ORDERED: glucagon, human recombinant 1mg kit SUBCUT PRN (19:50)
[2021-06-23] MEDS ORDERED: MESSAGE TO PHARMACY PO ONE (19:50)
[2021-06-23] MEDS ORDERED: dextrose ORAL solution 15 GM/59 ML bottle PO PRN ×2 (19:50)
[2021-06-23] MEDS ORDERED: dextrose 50%-water 50ml dispensing syringe IV PRN ×2 (19:50)
[2021-06-23] MEDS: K and/or MAG REPLACEMENT MC SCH (20:00)
[2021-06-23] MEDS: insulin glargine (Lantus) pen - multi-dose SQ SCH (21:33)
[2021-06-23 22:00] VITALS: BP 122/79
[2021-06-23 23:56] LABS: ALBUMIN 2.6 G/DL (3.4-5.0); ANION GAP 10 (8-16); BLOOD UREA NITROGEN 80 MG/DL (7-18); BUN/CREATININE RATIO 21.1 (6.6-38.0); CHLORIDE 101 MMOL/L (99-107); CREATININE 3.79 MG/DL (0.40-0.90); GLUCOSE 221 MG/DL (70-104); POTASSIUM 4.6 MMOL/L (3.5-5.1); SODIUM 134 MMOL/L (135-145); TOTAL CARBON DIOXIDE 23.1 MMOL/L (24-32); eGFR 12 ML/MIN
[2021-06-24 02:00] VITALS: BP 134/78
[2021-06-24 06:00] VITALS: BP 126/80
[2021-06-24 06:09] LABS: BASOPHILS # (AUTO) 0.1 X10'3 (0-0.2); BASOPHILS % (AUTO) 0.8 % (0-1); EOSINOPHILS # (AUTO) 0.1 X10'3 (0-0.9); HEMATOCRIT 31.8 % (35.0-45.0); HEMOGLOBIN 10.2 g/dl (12.0-16.0); LYMPHOCYTES # (AUTO) 1.7 X10'3 (1.1-4.8); LYMPHOCYTES % (AUTO) 24.6 % (21-51); MEAN CORPUSCULAR HEMOGLOBIN 27.1 PG (27.0-31.0); MEAN CORPUSCULAR HGB CONC 32.2 g/dL (33.0-36.5); MEAN PLATELET VOLUME 8.1 FL (7.4-10.4); MONOCYTES # (AUTO) 0.9 X10'3 (0-0.9); MONOCYTES % (AUTO) 12.8 % (2-12); NEUTROPHILS # (AUTO) 4.1 X10'3 (1.8-7.7); NEUTROPHILS % (AUTO) 59.8 % (42-75); PLATELET COUNT 182 X10'3 (140-440); RED BLOOD COUNT 3.78 X10'6 (4.20-5.60); RED CELL DISTRIBUTION WIDTH 20.3 % (11.5-14.5); WHITE BLOOD COUNT 6.9 X10'3 (4.5-11.0)
--- NOTE | 2021-06-24 06:09 | NUR ---
Patient in room PCU 3028. I have received report from CARMEN Montero and had the opportunity to ask questions and assume patient care.
--- NOTE | 2021-06-24 06:10 | NUR ---
Patient in room PCU 3028. I have received report from Winston RN/CARMEN Louis and had the opportunity to ask questions and assume patient care.
[2021-06-24 06:11] LABS: ALBUMIN 2.8 G/DL (3.4-5.0); ANION GAP 14 (8-16); BLOOD UREA NITROGEN 81 MG/DL (7-18); BUN/CREATININE RATIO 22.1 (6.6-38.0); CALCIUM 8.6 MG/DL (8.5-10.1); CHLORIDE 101 MMOL/L (99-107); CREATININE 3.67 MG/DL (0.40-0.90); GLUCOSE 187 MG/DL (70-104); MAGNESIUM 2.1 MG/DL (1.5-2.4); PHOSPHORUS 5.9 MG/DL (2.3-4.5); POTASSIUM 4.6 MMOL/L (3.5-5.1); SODIUM 137 MMOL/L (135-145); TOTAL CARBON DIOXIDE 21.9 MMOL/L (24-32); eGFR 12 ML/MIN
--- NOTE | 2021-06-24 06:12 | NUR ---
Problems reprioritized. Patient report given, questions answered & plan of care reviewed with Taylor MORALES.
[2021-06-24] MEDS ORDERED: piperacillin/tazo 3.375gm/50ml 50 ML IV SCH ×3 (08:00→20:00)
[2021-06-24] MEDS: K and/or MAG REPLACEMENT MC SCH ×2 (08:00→20:00)
--- NOTE | 2021-06-24 08:05 | NUR ---
[place] documentation: I have reviewed and agree with all interventions, assessments performed and documented by CARMEN Guillen.
[2021-06-24] MEDS: heparin, porcine 5000 units/ml vial SQ SCH ×2 (09:06→19:18)
[2021-06-24] MEDS: atorvastatin 10mg tablet PO SCH (09:06)
[2021-06-24] MEDS: losartan 50mg tablet PO SCH (09:07)
[2021-06-24] MEDS: multivitamins, therapeutics tablet PO SCH (09:07)
[2021-06-24] MEDS: pantoprazole 40mg Tablet.DR PO SCH (09:08)
[2021-06-24] MEDS: metoprolol succinate 25mg (24-HOUR) SR. Tablet PO SCH (09:08)
[2021-06-24] MEDS: insulin Lispro (HumaLOG) vial - multi-dose SQ SCH ×3 (09:26→19:15)
[2021-06-24 11:00] VITALS: BP 113/66
[2021-06-24 12:13] LABS: ALBUMIN 2.7 G/DL (3.4-5.0); ANION GAP 12 (8-16); BLOOD UREA NITROGEN 76 MG/DL (7-18); BUN/CREATININE RATIO 20.7 (6.6-38.0); CHLORIDE 101 MMOL/L (99-107); CREATININE 3.68 MG/DL (0.40-0.90); GLUCOSE 200 MG/DL (70-104); PHOSPHORUS 5.8 MG/DL (2.3-4.5); POTASSIUM 4.8 MMOL/L (3.5-5.1); SODIUM 137 MMOL/L (135-145); TOTAL CARBON DIOXIDE 23.7 MMOL/L (24-32); eGFR 12 ML/MIN
[2021-06-24] MEDS: vitamin A & D ointment-NF 1 APPLIC TUBE TP SCH (14:08)
[2021-06-24 15:00] VITALS: BP 109/70
--- NOTE | 2021-06-24 15:41 | NUR ---
Clarisa approved administering milk of magnesia.
[2021-06-24] MEDS: magnesium hydroxide 30ml (MOM) UD suspension PO PRN (17:08)
[2021-06-24 18:00] VITALS: BP 114/75
--- NOTE | 2021-06-24 18:05 | NUR ---
Problems reprioritized. Patient report given, questions answered & plan of care reviewed with CARMEN Montero. Pt sitting up in bed. All pt needs met at this time.
--- NOTE | 2021-06-24 18:05 | NUR ---
[place] Medication Administration: For this medication-pass time frame, all medication were reviewed, dispensed, administered and documented per hospital policy by CARMEN Guillen.
--- NOTE | 2021-06-24 18:06 | NUR ---
Problems reprioritized. Patient report given, questions answered & plan of care reviewed with CARMEN Montero. ROBI, CL within reach, patient is comfortable watching tv and eating dinner.
--- NOTE | 2021-06-24 18:06 | NUR ---
Patient in room PCU 3028. I have received report from Taylor MORALES and had the opportunity to ask questions and assume patient care.
[2021-06-24] MEDS: lactobacillus rhamnosus 10,000 MMU CELLS/CAPSULE PO SCH (19:17)
[2021-06-24 19:24] LABS: ALBUMIN 2.8 G/DL (3.4-5.0); ANION GAP 10 (8-16); BLOOD UREA NITROGEN 80 MG/DL (7-18); CALCIUM 8.6 MG/DL (8.5-10.1); CHLORIDE 101 MMOL/L (99-107); CREATININE 3.81 MG/DL (0.40-0.90); GLUCOSE 164 MG/DL (70-104); PHOSPHORUS 5.5 MG/DL (2.3-4.5); POTASSIUM 4.2 MMOL/L (3.5-5.1); SODIUM 137 MMOL/L (135-145); TOTAL CARBON DIOXIDE 26.3 MMOL/L (24-32); eGFR 12 ML/MIN
[2021-06-24] MEDS ORDERED: docusate sod 100mg capsule PO ONE (20:05)
[2021-06-24] MEDS: insulin glargine (Lantus) pen - multi-dose SQ SCH (21:03)
[2021-06-24 22:00] VITALS: BP 134/82
[2021-06-24 23:42] LABS: ALBUMIN 2.4 G/DL (3.4-5.0); ANION GAP 12 (8-16); BLOOD UREA NITROGEN 80 MG/DL (7-18); BUN/CREATININE RATIO 21.6 (6.6-38.0); CALCIUM 8.1 MG/DL (8.5-10.1); CHLORIDE 103 MMOL/L (99-107); GLUCOSE 156 MG/DL (70-104); PHOSPHORUS 5.2 MG/DL (2.3-4.5); SODIUM 138 MMOL/L (135-145); TOTAL CARBON DIOXIDE 23.4 MMOL/L (24-32); eGFR 12 ML/MIN
[2021-06-25 02:00] VITALS: BP 138/79
--- NOTE | 2021-06-25 05:35 | NUR ---
notifed PAGER ID: [phone] MESSAGE: [id number] Liberty Goss is requesting a suppository please for this am. she states she doesn't feel like the Colace ordered last night is effective enough, she feels very constipated Winston [phone]
[2021-06-25 05:52] LABS: BASOPHILS % (AUTO) 0.4 % (0-1); EOSINOPHILS # (AUTO) 0.2 X10'3 (0-0.9); EOSINOPHILS % (AUTO) 2.2 % (0-6); HEMATOCRIT 32.9 % (35.0-45.0); HEMOGLOBIN 10.3 g/dl (12.0-16.0); LYMPHOCYTES % (AUTO) 12.9 % (21-51); MEAN CORPUSCULAR HEMOGLOBIN 26.5 PG (27.0-31.0); MEAN CORPUSCULAR HGB CONC 31.3 g/dL (33.0-36.5); MEAN CORPUSCULAR VOLUME 84.6 FL (78-98); MEAN PLATELET VOLUME 8.2 FL (7.4-10.4); MONOCYTES # (AUTO) 0.8 X10'3 (0-0.9); MONOCYTES % (AUTO) 9.8 % (2-12); NEUTROPHILS # (AUTO) 5.8 X10'3 (1.8-7.7); NEUTROPHILS % (AUTO) 74.7 % (42-75); PLATELET COUNT 185 X10'3 (140-440); RED BLOOD COUNT 3.89 X10'6 (4.20-5.60); RED CELL DISTRIBUTION WIDTH 20.4 % (11.5-14.5); WHITE BLOOD COUNT 7.7 X10'3 (4.5-11.0)
[2021-06-25 06:00] VITALS: BP 148/70
[2021-06-25 06:14] LABS: ALBUMIN 2.6 G/DL (3.4-5.0); ANION GAP 12 (8-16); BLOOD UREA NITROGEN 79 MG/DL (7-18); BUN/CREATININE RATIO 21.4 (6.6-38.0); CALCIUM 8.2 MG/DL (8.5-10.1); CHLORIDE 102 MMOL/L (99-107); CREATININE 3.69 MG/DL (0.40-0.90); GLUCOSE 177 MG/DL (70-104); MAGNESIUM 2.4 MG/DL (1.5-2.4); PHOSPHORUS 5.5 MG/DL (2.3-4.5); POTASSIUM 3.9 MMOL/L (3.5-5.1); SODIUM 139 MMOL/L (135-145); TOTAL CARBON DIOXIDE 24.8 MMOL/L (24-32); eGFR 12 ML/MIN
[2021-06-25] MEDS ORDERED: bisacodyl 10mg suppository rectal RC PRN (06:30)
--- NOTE | 2021-06-25 07:00 | NUR ---
Problems reprioritized. Patient report given, questions answered & plan of care reviewed with Honey MORALES.
--- NOTE | 2021-06-25 07:08 | NUR ---
Patient in room PCU 3028. I have received report from CARMEN DIAZ, and had the opportunity to ask questions and assume patient care.
[2021-06-25] MEDS: K and/or MAG REPLACEMENT MC SCH ×2 (08:00→20:00)
[2021-06-25] MEDS: vitamin A & D ointment-NF 1 APPLIC TUBE TP SCH (08:00)
[2021-06-25] MEDS: insulin Lispro (HumaLOG) vial - multi-dose SQ SCH ×2 (09:00→14:44)
[2021-06-25] MEDS: heparin, porcine 5000 units/ml vial SQ SCH ×2 (09:01→20:09)
[2021-06-25] MEDS: docusate sod 100mg capsule PO SCH (09:01)
[2021-06-25] MEDS: metoprolol succinate 25mg (24-HOUR) SR. Tablet PO SCH (09:02)
[2021-06-25] MEDS: pantoprazole 40mg Tablet.DR PO SCH (09:02)
[2021-06-25] MEDS: multivitamins, therapeutics tablet PO SCH (09:03)
[2021-06-25] MEDS: losartan 50mg tablet PO SCH (09:03)
[2021-06-25] MEDS: lactobacillus rhamnosus 10,000 MMU CELLS/CAPSULE PO SCH ×2 (09:04→20:09)
[2021-06-25] MEDS: atorvastatin 10mg tablet PO SCH (09:04)
[2021-06-25] MEDS: furosemide inj 1,000 MG in normal saline 250ml IV soln 150 ML IV SCH (11:30)
[2021-06-25 11:47] LABS: ALBUMIN 2.5 G/DL (3.4-5.0); ANION GAP 8 (8-16); BLOOD UREA NITROGEN 81 MG/DL (7-18); BUN/CREATININE RATIO 22.3 (6.6-38.0); CALCIUM 8.1 MG/DL (8.5-10.1); CHLORIDE 103 MMOL/L (99-107); CREATININE 3.63 MG/DL (0.40-0.90); GLUCOSE 181 MG/DL (70-104); POTASSIUM 3.9 MMOL/L (3.5-5.1); SODIUM 138 MMOL/L (135-145); TOTAL CARBON DIOXIDE 27.2 MMOL/L (24-32); eGFR 12 ML/MIN
[2021-06-25 18:00] VITALS: BP 127/87
--- NOTE | 2021-06-25 18:41 | NUR ---
Problems reprioritized. Patient report given, questions answered & plan of care reviewed with CARMEN PEREYRA.
--- NOTE | 2021-06-25 18:46 | NUR ---
PAGE SENT PAGER ID: [phone] MESSAGE: [id number], DARCIEMYAH FREDERICKE, REDNESS IN GROIN, NYSTATIN POWDER PLEASE. THANK YOU, ECHO
[2021-06-25 19:41] LABS: ALBUMIN 2.2 G/DL (3.4-5.0); ANION GAP 10 (8-16); BLOOD UREA NITROGEN 75 MG/DL (7-18); BUN/CREATININE RATIO 20.5 (6.6-38.0); CALCIUM 7.7 MG/DL (8.5-10.1); CHLORIDE 104 MMOL/L (99-107); CREATININE 3.66 MG/DL (0.40-0.90); GLUCOSE 158 MG/DL (70-104); PHOSPHORUS 5.1 MG/DL (2.3-4.5); POTASSIUM 3.7 MMOL/L (3.5-5.1); SODIUM 140 MMOL/L (135-145); TOTAL CARBON DIOXIDE 26.3 MMOL/L (24-32); eGFR 12 ML/MIN
[2021-06-25 20:00] VITALS: BP 129/71
[2021-06-25] MEDS: CefTRIAXone/D5W-Rocephin 1gm 50 ML IV SCH (20:09)
[2021-06-25] MEDS: insulin glargine (Lantus) pen - multi-dose SQ SCH (20:33)
[2021-06-25 22:00] VITALS: BP 137/68
[2021-06-25] MEDS: magnesium hydroxide 30ml (MOM) UD suspension PO PRN (22:39)
[2021-06-25 23:22] LABS: ALBUMIN 2.4 G/DL (3.4-5.0); ANION GAP 9 (8-16); BLOOD UREA NITROGEN 82 MG/DL (7-18); BUN/CREATININE RATIO 21.9 (6.6-38.0); CALCIUM 8.2 MG/DL (8.5-10.1); CHLORIDE 105 MMOL/L (99-107); CREATININE 3.74 MG/DL (0.40-0.90); GLUCOSE 208 MG/DL (70-104); POTASSIUM 3.9 MMOL/L (3.5-5.1); SODIUM 140 MMOL/L (135-145); TOTAL CARBON DIOXIDE 25.8 MMOL/L (24-32); eGFR 12 ML/MIN
[2021-06-26] VITALS (8 sets, daily range): BP systolic 118–140; BP diastolic 64–88
--- NOTE | 2021-06-26 07:00 | NUR ---
Patient in room PCU 3028. I have received report from Radha MORALES and had the opportunity to ask questions and assume patient care. Pt supine in bed, chest rising and falling evenly. BLL, CL within reach, SRx2. No s/sx acute distress
[2021-06-26 07:54] LABS: BASOPHILS % (AUTO) 0.6 % (0-1); EOSINOPHILS # (AUTO) 0.2 X10'3 (0-0.9); EOSINOPHILS % (AUTO) 2.7 % (0-6); HEMATOCRIT 29.7 % (35.0-45.0); HEMOGLOBIN 9.6 g/dl (12.0-16.0); LYMPHOCYTES # (AUTO) 1.2 X10'3 (1.1-4.8); LYMPHOCYTES % (AUTO) 20.6 % (21-51); MEAN CORPUSCULAR HEMOGLOBIN 26.7 PG (27.0-31.0); MEAN CORPUSCULAR HGB CONC 32.2 g/dL (33.0-36.5); MEAN CORPUSCULAR VOLUME 82.9 FL (78-98); MEAN PLATELET VOLUME 7.8 FL (7.4-10.4); MONOCYTES # (AUTO) 0.7 X10'3 (0-0.9); NEUTROPHILS # (AUTO) 3.7 X10'3 (1.8-7.7); NEUTROPHILS % (AUTO) 64.1 % (42-75); PLATELET COUNT 188 X10'3 (140-440); RED BLOOD COUNT 3.58 X10'6 (4.20-5.60); RED CELL DISTRIBUTION WIDTH 20.6 % (11.5-14.5); WHITE BLOOD COUNT 5.8 X10'3 (4.5-11.0)
[2021-06-26] MEDS: K and/or MAG REPLACEMENT MC SCH ×2 (08:00→20:00)
[2021-06-26] MEDS: vitamin A & D ointment-NF 1 APPLIC TUBE TP SCH (08:00)
[2021-06-26 08:23] LABS: ALBUMIN 2.5 G/DL (3.4-5.0); ANION GAP 13 (8-16); BLOOD UREA NITROGEN 80 MG/DL (7-18); CALCIUM 8.4 MG/DL (8.5-10.1); CHLORIDE 105 MMOL/L (99-107); CREATININE 3.48 MG/DL (0.40-0.90); GLUCOSE 166 MG/DL (70-104); MAGNESIUM 2.2 MG/DL (1.5-2.4); POTASSIUM 3.7 MMOL/L (3.5-5.1); SODIUM 143 MMOL/L (135-145); TOTAL CARBON DIOXIDE 24.8 MMOL/L (24-32); eGFR 13 ML/MIN
[2021-06-26 08:32] LABS: ANISOCYTOSIS 3+; MICROCYTOSIS 1+; PLATELET ESTIMATE NORMAL; POIKILOCYTOSIS FEW; POLYCHROMASIA FEW; SCHISTOCYTES FEW
[2021-06-26] MEDS ORDERED: lactulose 20gm/30ml cup PO ONE (09:10)
[2021-06-26] MEDS: metoprolol succinate 25mg (24-HOUR) SR. Tablet PO SCH (09:33)
[2021-06-26] MEDS: lactobacillus rhamnosus 10,000 MMU CELLS/CAPSULE PO SCH ×2 (09:34→20:38)
[2021-06-26] MEDS: CefTRIAXone/D5W-Rocephin 1gm 50 ML IV SCH (09:34)
[2021-06-26] MEDS: multivitamins, therapeutics tablet PO SCH (09:34)
[2021-06-26] MEDS: atorvastatin 10mg tablet PO SCH (09:34)
[2021-06-26] MEDS: pantoprazole 40mg Tablet.DR PO SCH (09:34)
[2021-06-26] MEDS: docusate sod 100mg capsule PO SCH (09:36)
[2021-06-26] MEDS: heparin, porcine 5000 units/ml vial SQ SCH ×2 (09:36→20:39)
[2021-06-26] MEDS: losartan 50mg tablet PO SCH (09:39)
[2021-06-26] MEDS: insulin Lispro (HumaLOG) vial - multi-dose SQ SCH ×2 (09:46→13:47)
[2021-06-26] MEDS ORDERED: mineral oil 133ml enema RC PRN (12:05)
[2021-06-26 12:24] LABS: ALBUMIN 2.6 G/DL (3.4-5.0); ANION GAP 14 (8-16); BLOOD UREA NITROGEN 77 MG/DL (7-18); BUN/CREATININE RATIO 21.2 (6.6-38.0); CALCIUM 8.3 MG/DL (8.5-10.1); CHLORIDE 104 MMOL/L (99-107); CREATININE 3.63 MG/DL (0.40-0.90); GLUCOSE 236 MG/DL (70-104); PHOSPHORUS 4.6 MG/DL (2.3-4.5); POTASSIUM 3.7 MMOL/L (3.5-5.1); SODIUM 142 MMOL/L (135-145); TOTAL CARBON DIOXIDE 24.4 MMOL/L (24-32); eGFR 12 ML/MIN
[2021-06-26] MEDS: nystatin 15 GM powder TP SCH ×2 (13:00→21:09)
[2021-06-26 17:49] LABS: ALBUMIN 2.4 G/DL (3.4-5.0); ANION GAP 9 (8-16); BLOOD UREA NITROGEN 84 MG/DL (7-18); BUN/CREATININE RATIO 23.6 (6.6-38.0); CALCIUM 8.3 MG/DL (8.5-10.1); CHLORIDE 106 MMOL/L (99-107); CREATININE 3.56 MG/DL (0.40-0.90); GLUCOSE 96 MG/DL (70-104); PHOSPHORUS 4.6 MG/DL (2.3-4.5); POTASSIUM 3.5 MMOL/L (3.5-5.1); SODIUM 143 MMOL/L (135-145); TOTAL CARBON DIOXIDE 27.6 MMOL/L (24-32); eGFR 13 ML/MIN
[2021-06-26] MEDS: furosemide 40mg tablet PO SCH (20:38)
[2021-06-26] MEDS: insulin glargine (Lantus) pen - multi-dose SQ SCH (20:53)
[2021-06-27 03:00] VITALS: BP 128/70
[2021-06-27 06:17] LABS: BASOPHILS # (AUTO) 0.1 X10'3 (0-0.2); BASOPHILS % (AUTO) 0.9 % (0-1); EOSINOPHILS # (AUTO) 0.2 X10'3 (0-0.9); EOSINOPHILS % (AUTO) 3.5 % (0-6); HEMATOCRIT 28.8 % (35.0-45.0); LYMPHOCYTES # (AUTO) 1.3 X10'3 (1.1-4.8); LYMPHOCYTES % (AUTO) 21.3 % (21-51); MEAN CORPUSCULAR HEMOGLOBIN 26.4 PG (27.0-31.0); MEAN CORPUSCULAR HGB CONC 31.4 g/dL (33.0-36.5); MONOCYTES # (AUTO) 0.7 X10'3 (0-0.9); MONOCYTES % (AUTO) 12.1 % (2-12); NEUTROPHILS # (AUTO) 3.8 X10'3 (1.8-7.7); NEUTROPHILS % (AUTO) 62.2 % (42-75); PLATELET COUNT 198 X10'3 (140-440); RED BLOOD COUNT 3.42 X10'6 (4.20-5.60)
--- NOTE | 2021-06-27 06:27 | NUR ---
Problems reprioritized. Patient report given, questions answered & plan of care reviewed with Sheri RN. Pt supine in bed, chest rising and falling evenly, cpap in place. no s/sx acute distress. safety measures maintained. VS stable
[2021-06-27 06:30] VITALS: BP 158/103
[2021-06-27 06:43] LABS: ALBUMIN 2.4 G/DL (3.4-5.0); ANION GAP 12 (8-16); BLOOD UREA NITROGEN 80 MG/DL (7-18); BUN/CREATININE RATIO 23.8 (6.6-38.0); CALCIUM 8.3 MG/DL (8.5-10.1); CHLORIDE 105 MMOL/L (99-107); CREATININE 3.36 MG/DL (0.40-0.90); GLUCOSE 165 MG/DL (70-104); MAGNESIUM 2.2 MG/DL (1.5-2.4); POTASSIUM 3.6 MMOL/L (3.5-5.1); SODIUM 142 MMOL/L (135-145); TOTAL CARBON DIOXIDE 25.4 MMOL/L (24-32); eGFR 13 ML/MIN
[2021-06-27] MEDS: K and/or MAG REPLACEMENT MC SCH ×2 (08:00→20:00)
[2021-06-27] MEDS: potassium Cl 20 mEq SR tablet PO SCH (08:00)
[2021-06-27] MEDS: vitamin A & D ointment-NF 1 APPLIC TUBE TP SCH (08:00)
[2021-06-27] MEDS: nystatin 15 GM powder TP SCH ×3 (08:00→21:26)
[2021-06-27] MEDS: heparin, porcine 5000 units/ml vial SQ SCH ×2 (08:00→21:00)
[2021-06-27] MEDS: CefTRIAXone/D5W-Rocephin 1gm 50 ML IV SCH (10:01)
[2021-06-27] MEDS: furosemide 40mg tablet PO SCH ×2 (10:01→20:12)
[2021-06-27] MEDS: multivitamins, therapeutics tablet PO SCH (10:03)
[2021-06-27] MEDS: lactobacillus rhamnosus 10,000 MMU CELLS/CAPSULE PO SCH ×2 (10:03→20:12)
[2021-06-27] MEDS: docusate sod 100mg capsule PO SCH (10:03)
[2021-06-27] MEDS: metoprolol succinate 25mg (24-HOUR) SR. Tablet PO SCH (10:04)
[2021-06-27] MEDS: losartan 50mg tablet PO SCH (10:05)
[2021-06-27] MEDS: atorvastatin 10mg tablet PO SCH (10:06)
[2021-06-27] MEDS: pantoprazole 40mg Tablet.DR PO SCH (10:06)
[2021-06-27 11:00] VITALS: BP 148/69
--- NOTE | 2021-06-27 11:10 | NUR ---
Initial: Pt admit for LEX/CKD with acute on chronic systolic CHF, EF is 25-30% per MD note. Pt currently on a 2 g Na restricted renal diet with 1L fluid restriction per web project manager. Pt with fluctuating PO intake however average is 54% PO intake throughout LOS not meeting estimated nutrient needs. Recommend Nepro BID for additional kcal and protein without providing excess of protein given current renal status not on dialysis. If pt with 100% PO intake of ONS BID and continues with current trends in PO intake this will meet 100% of estimated energy/protein needs calculated using IBW +10% given morbid obesity. Estimated protein needs are adjusted given pt with an open wound to calf d/t edema (per physical assessment) with current renal status. Wound care has been consulted, pending assessment at this time. LBM 06/26 documented as large, first BM since 06/22 per EMR. Pt receiving routine bowel care with PRN bowel care last given 06/25. Hopefully appetite will improve with resolution of constipation. Will continue to follow closely and monitor need for further nutrition intervention. Recommendations: 1) Continue 2 g Na restricted renal diet with 1 L fluid restriction per MD 2) Add CHO controlled diet IF PO intake improves 3) Nepro BIDBD, pending MD approval in EMR 4) Routine bowel care 5) Scaled weight per rx Addendum: 06/27/21 at [address] Amended: Links added.
[2021-06-27] MEDS ORDERED: FURO40TA4 PO (11:28)
[2021-06-27] MEDS ORDERED: CIPR-202 PO ×2 (11:30)
[2021-06-27] MEDS: insulin Lispro (HumaLOG) vial - multi-dose SQ SCH ×2 (14:24→19:29)
[2021-06-27 15:00] VITALS: BP 128/49
[2021-06-27] MEDS: NUT.TX.IMP.RENAL FXN,LAC-REDUC (Nepro) 237 ML VANILLA PO SCH (17:30)
[2021-06-27 18:00] VITALS: BP 140/78
--- NOTE | 2021-06-27 18:00 | NUR ---
Patient in room U 3028. I have received report from Lupis MORALES and had the opportunity to ask questions and assume patient care. Addendum: 06/27/21 at 1913 by Shelley Witt RN Amended: Links added.
[2021-06-27] MEDS: insulin glargine (Lantus) pen - multi-dose SQ SCH (21:18)
[2021-06-27 22:00] VITALS: BP 136/63
[2021-06-28 03:25] VITALS: BP 124/68
--- NOTE | 2021-06-28 05:00 | NUR ---
No hypoglycemic events this shift. Wound care to left medial aspect of the calf performed. Jeffy. leg wraps intact F/c cath with adequate output noted (see I & O's). Call light within reach. Addendum: 06/28/21 at 0732 by Shelley iWtt RN Amended: Links added.
--- NOTE | 2021-06-28 06:00 | NUR ---
Problems reprioritized. Patient report given, questions answered & plan of care reviewed with Lupis MORALES. Addendum: 06/28/21 at 0714 by Shelley Witt RN Amended: Links added.
[2021-06-28 06:35] VITALS: BP 136/76
[2021-06-28] MEDS: NUT.TX.IMP.RENAL FXN,LAC-REDUC (Nepro) 237 ML VANILLA PO SCH ×2 (07:30→17:30)
[2021-06-28] MEDS: K and/or MAG REPLACEMENT MC SCH ×2 (08:00→20:00)
[2021-06-28] MEDS: vitamin A & D ointment-NF 1 APPLIC TUBE TP SCH (08:00)
[2021-06-28] MEDS: nystatin 15 GM powder TP SCH ×3 (08:00→21:00)
[2021-06-28] MEDS: lactobacillus rhamnosus 10,000 MMU CELLS/CAPSULE PO SCH ×2 (09:33→19:33)
[2021-06-28] MEDS: docusate sod 100mg capsule PO SCH (09:34)
[2021-06-28] MEDS: losartan 50mg tablet PO SCH (09:39)
[2021-06-28] MEDS: metoprolol succinate 25mg (24-HOUR) SR. Tablet PO SCH (09:40)
[2021-06-28] MEDS: pantoprazole 40mg Tablet.DR PO SCH (09:40)
[2021-06-28] MEDS: furosemide 40mg tablet PO SCH ×2 (09:41→14:33)
[2021-06-28] MEDS: atorvastatin 10mg tablet PO SCH (09:41)
[2021-06-28] MEDS: CefTRIAXone/D5W-Rocephin 1gm 50 ML IV SCH (09:41)
[2021-06-28] MEDS: multivitamins, therapeutics tablet PO SCH (09:41)
[2021-06-28] MEDS: potassium Cl 20 mEq SR tablet PO SCH (09:45)
[2021-06-28] MEDS: heparin, porcine 5000 units/ml vial SQ SCH ×2 (09:53→19:34)
[2021-06-28 11:00] VITALS: BP 125/71
[2021-06-28] MEDS: insulin Lispro (HumaLOG) vial - multi-dose SQ SCH ×2 (13:48→19:32)
[2021-06-28 15:00] VITALS: BP 126/77
[2021-06-28 18:00] VITALS: BP 122/72
--- NOTE | 2021-06-28 18:15 | NUR ---
Patient in room PCU 3028. I have received report from Lupis RN and had the opportunity to ask questions and assume patient care.
[2021-06-28] MEDS: insulin glargine (Lantus) pen - multi-dose SQ SCH (21:45)
--- NOTE | 2021-06-29 01:31 | NUR ---
Page Sent PAGER ID: [phone] MESSAGE: RE: Liberty Goss 3028-B. Pt is feeling very anxious. Can I get an order for Ativan or Restoril? Thanks, Nat [phone]
[2021-06-29] MEDS ORDERED: Melatonin 3mg tablet PO PRN (01:35)
[2021-06-29 02:00] VITALS: BP 130/78
[2021-06-29] MEDS: furosemide 40mg tablet PO SCH ×2 (02:32→09:10)
--- NOTE | 2021-06-29 06:27 | NUR ---
Problems reprioritized. Patient report given, questions answered & plan of care reviewed with Kalin MORALES.
[2021-06-29] MEDS: NUT.TX.IMP.RENAL FXN,LAC-REDUC (Nepro) 237 ML VANILLA PO SCH (07:30)
[2021-06-29] MEDS: nystatin 15 GM powder TP SCH (08:00)
[2021-06-29] MEDS: vitamin A & D ointment-NF 1 APPLIC TUBE TP SCH (08:00)
[2021-06-29] MEDS: CefTRIAXone/D5W-Rocephin 1gm 50 ML IV SCH (09:05)
[2021-06-29] MEDS: lactobacillus rhamnosus 10,000 MMU CELLS/CAPSULE PO SCH (09:06)
[2021-06-29] MEDS: multivitamins, therapeutics tablet PO SCH (09:08)
[2021-06-29] MEDS: pantoprazole 40mg Tablet.DR PO SCH (09:08)
[2021-06-29] MEDS: docusate sod 100mg capsule PO SCH (09:08)
[2021-06-29] MEDS: atorvastatin 10mg tablet PO SCH (09:08)
[2021-06-29] MEDS: potassium Cl 20 mEq SR tablet PO SCH (09:10)
[2021-06-29] MEDS: metoprolol succinate 25mg (24-HOUR) SR. Tablet PO SCH (09:11)
[2021-06-29] MEDS: heparin, porcine 5000 units/ml vial SQ SCH (09:14)
[2021-06-29 09:16] VITALS: BP_SYST 137
[2021-06-29] MEDS: losartan 50mg tablet PO SCH (09:16)
[2021-06-29] MEDS: insulin Lispro (HumaLOG) vial - multi-dose SQ SCH (09:28)
[2021-06-29 09:38] LABS: BASOPHILS # (AUTO) 0.1 X10'3 (0-0.2); BASOPHILS % (AUTO) 0.8 % (0-1); EOSINOPHILS # (AUTO) 0.2 X10'3 (0-0.9); EOSINOPHILS % (AUTO) 3.9 % (0-6); HEMATOCRIT 31.1 % (35.0-45.0); HEMOGLOBIN 9.5 g/dl (12.0-16.0); LYMPHOCYTES # (AUTO) 1.3 X10'3 (1.1-4.8); LYMPHOCYTES % (AUTO) 21.8 % (21-51); MEAN CORPUSCULAR HEMOGLOBIN 26.1 PG (27.0-31.0); MEAN CORPUSCULAR HGB CONC 30.6 g/dL (33.0-36.5); MEAN CORPUSCULAR VOLUME 85.2 FL (78-98); MEAN PLATELET VOLUME 8.1 FL (7.4-10.4); MONOCYTES # (AUTO) 0.6 X10'3 (0-0.9); MONOCYTES % (AUTO) 10.4 % (2-12); NEUTROPHILS # (AUTO) 3.8 X10'3 (1.8-7.7); NEUTROPHILS % (AUTO) 63.1 % (42-75); PLATELET COUNT 221 X10'3 (140-440); RED BLOOD COUNT 3.65 X10'6 (4.20-5.60); RED CELL DISTRIBUTION WIDTH 20.2 % (11.5-14.5)
[2021-06-29 10:08] LABS: ALANINE AMINOTRANSFERASE 75 U/L (12-78); ALBUMIN 2.5 G/DL (3.4-5.0); ALBUMIN/GLOBULIN RATIO 0.6 (1.1-1.5); ALKALINE PHOSPHATASE 269 IU/L (46-116); ANION GAP 13 (8-16); ASPARTATE AMINO TRANSFERASE 33 U/L (10-37); BILIRUBIN,TOTAL 0.7 MG/DL (0.1-1.0); BLOOD UREA NITROGEN 80 MG/DL (7-18); BUN/CREATININE RATIO 27.1 (6.6-38.0); CALCIUM 8.5 MG/DL (8.5-10.1); CHLORIDE 105 MMOL/L (99-107); CREATININE 2.95 MG/DL (0.40-0.90); GLUCOSE 112 MG/DL (70-104); MAGNESIUM 2.4 MG/DL (1.5-2.4); PHOSPHORUS 4.3 MG/DL (2.3-4.5); POTASSIUM 3.7 MMOL/L (3.5-5.1); SODIUM 146 MMOL/L (135-145); TOTAL CARBON DIOXIDE 27.9 MMOL/L (24-32); TOTAL PROTEIN 6.5 G/DL (6.4-8.2); eGFR 16 ML/MIN
--- NOTE | 2021-06-29 12:38 | NUR ---
Pt transferred to [facility] via [facility] transportation services. PIV discontinued, cannula intact. All of the Patients belongings gathered and sent with Patient. Report given to Idalmis MORALES at [facility].
== END 2021-06-29 12:40 | DRG 682 ==
LOC: ER 16:08 → ED HOLD 19:32 → PCU 3S 21:00
PROVIDERS: ADMIT Internal Medicine; ATTEND Internal Medicine
PROC: 5A09357 Assistance with Respiratory Ventilation, Less than 24 Consecutive Hours, Continuous Positive Airway Pressure (ICD-10-PCS; principal; 2021-06-24)
PROC: 5A09357 Assistance with Respiratory Ventilation, Less than 24 Consecutive Hours, Continuous Positive Airway Pressure (ICD-10-PCS; 2021-06-26)
PROC: 5A09357 Assistance with Respiratory Ventilation, Less than 24 Consecutive Hours, Continuous Positive Airway Pressure (ICD-10-PCS; 2021-06-27)
DX: N17.9 Acute kidney failure, unspecified (principal); I50.23 Acute on chronic systolic (congestive) heart failure; I13.0 Hypertensive heart and chronic kidney disease with heart failure and stage 1 through stage 4 chronic kidney disease, or unspecified chronic kidney disease; N39.0 Urinary tract infection, site not specified; I48.20 Chronic atrial fibrillation, unspecified; Z68.43 Body mass index [BMI] 50.0-59.9, adult; I42.9 Cardiomyopathy, unspecified; N18.4 Chronic kidney disease, stage 4 (severe); B96.20 Unspecified Escherichia coli [E. coli] as the cause of diseases classified elsewhere; D64.9 Anemia, unspecified; E11.22 Type 2 diabetes mellitus with diabetic chronic kidney disease; E66.9 Obesity, unspecified; E78.00 Pure hypercholesterolemia, unspecified; E78.5 Hyperlipidemia, unspecified; J44.9 Chronic obstructive pulmonary disease, unspecified; Z20.822 Contact with and (suspected) exposure to COVID-19; G47.33 Obstructive sleep apnea (adult) (pediatric); R94.5 Abnormal results of liver function studies; K21.9 Gastro-esophageal reflux disease without esophagitis; K57.90 Diverticulosis of intestine, part unspecified, without perforation or abscess without bleeding; K59.00 Constipation, unspecified; Z79.4 Long term (current) use of insulin; Z79.899 Other long term (current) drug therapy; Z80.41 Family history of malignant neoplasm of ovary; Z82.3 Family history of stroke; Z85.038 Personal history of other malignant neoplasm of large intestine; Z87.19 Personal history of other diseases of the digestive system; Z87.01 Personal history of pneumonia (recurrent)
CPT/HCPCS: 36415; 71045; 80048; 80053; 80069; 81001; 82948; 83735; 83880; 84100; 85008; 85025; 87077; 87081; 87088; 87186; 87635; 93005; 93306; 93970; 97110; 97161; 97530; 99285; G0378; J0696; J1644; J1815; J1940; J2543; J7050

== ENCOUNTER 2021-08-17 12:53 | Emergency (ER) | payer MEDICARE, OTHER ==
[~2021-08-17] VITALS: Ht 167.6 cm; Wt 140.0 kg
[~2021-08-17 12:53] MED LIST changes: +METF-438 PO; -METF500T PO; -NYSPWD TP; +POTA-82 PO
[2021-08-17 13:28] LABS: ANION GAP 10 (8-16); BILIRUBIN,TOTAL 1.1 MG/DL (0.1-1.0); BLOOD UREA NITROGEN 102 MG/DL (7-18); BUN/CREATININE RATIO 29.9 (6.6-38.0); CALCIUM 8.8 MG/DL (8.5-10.1); CHLORIDE 105 MMOL/L (99-107); CREATININE 3.41 MG/DL (0.40-0.90); GLUCOSE 208 MG/DL (70-104); POTASSIUM 4.5 MMOL/L (3.5-5.1); SODIUM 138 MMOL/L (135-145); TOTAL CARBON DIOXIDE 22.7 MMOL/L (24-32); TOTAL PROTEIN 7.4 G/DL (6.4-8.2); eGFR 13 ML/MIN
[2021-08-17 13:29] LABS: ALANINE AMINOTRANSFERASE 30 U/L (12-78); ALBUMIN/GLOBULIN RATIO 0.7 (1.1-1.5); ALKALINE PHOSPHATASE 222 IU/L (46-116); ASPARTATE AMINO TRANSFERASE 32 U/L (10-37)
[2021-08-17] MEDS ORDERED: metolazone 2.5mg tablet PO SCH (13:50)
[2021-08-17] MEDS ORDERED: metolazone 2.5mg tablet PO ONE (13:50)
[2021-08-17] MEDS ORDERED: DOXYCYCLINE 100MG CAPSULE PO STA (13:56)
[2021-08-17] MEDS ORDERED: DOXY100C43 PO (13:57)
[2021-08-17 14:08] LABS: BASOPHILS # (AUTO) 0.1 X10'3 (0-0.2); EOSINOPHILS # (AUTO) 0.1 X10'3 (0-0.9); EOSINOPHILS % (AUTO) 1.2 % (0-6); HEMATOCRIT 31.1 % (35.0-45.0); HEMOGLOBIN 9.7 g/dl (12.0-16.0); LYMPHOCYTES # (AUTO) 1.1 X10'3 (1.1-4.8); LYMPHOCYTES % (AUTO) 22.7 % (21-51); MEAN CORPUSCULAR HEMOGLOBIN 24.5 PG (27.0-31.0); MEAN CORPUSCULAR VOLUME 79.1 FL (78-98); MEAN PLATELET VOLUME 8.1 FL (7.4-10.4); MONOCYTES # (AUTO) 0.4 X10'3 (0-0.9); MONOCYTES % (AUTO) 8.9 % (2-12); NEUTROPHILS # (AUTO) 3.3 X10'3 (1.8-7.7); NEUTROPHILS % (AUTO) 66.2 % (42-75); PLATELET COUNT 313 X10'3 (140-440); RED BLOOD COUNT 3.94 X10'6 (4.20-5.60); RED CELL DISTRIBUTION WIDTH 20.5 % (11.5-14.5)
[2021-08-17 14:57] VITALS: BP 112/60
== END 2021-08-17 16:23 | disposition home or self-care (01) ==
LOC: ER 12:54
DX: R60.9 Edema, unspecified (principal); L03.115 Cellulitis of right lower limb; L03.116 Cellulitis of left lower limb; I11.0 Hypertensive heart disease with heart failure; I50.9 Heart failure, unspecified; N18.9 Chronic kidney disease, unspecified; I48.91 Unspecified atrial fibrillation; E78.00 Pure hypercholesterolemia, unspecified; J44.9 Chronic obstructive pulmonary disease, unspecified; Z87.01 Personal history of pneumonia (recurrent); Z85.038 Personal history of other malignant neoplasm of large intestine; Z79.899 Other long term (current) drug therapy
CPT/HCPCS: 36415; 71045; 80053; 83880; 84145; 84484; 85025; 93005; 99285

== ENCOUNTER 2021-09-07 17:59 | Emergency (ER) | payer MEDICARE, OTHER ==
[~2021-09-07] VITALS: Ht 167.6 cm; Wt 136.4 kg
[~2021-09-07 17:59] MED LIST changes: +DOXY100C43 PO
[2021-09-07] MEDS ORDERED: normal saline 1000ML IV soln IVB ONE (18:10)
[2021-09-07] MEDS ORDERED: insulin regular, human 10 units/0.1 ml syringe IV ONE (18:10)
[2021-09-07] MEDS ORDERED: insulin regular, human 10 units/0.1 ml syringe SQ ONE (18:10)
[2021-09-07 18:15] VITALS: BP 119/60
[2021-09-07 19:01] LABS: BASOPHILS % (AUTO) 0.9 % (0-1); EOSINOPHILS # (AUTO) 0.1 X10'3 (0-0.9); EOSINOPHILS % (AUTO) 1.3 % (0-6); HEMATOCRIT 30.9 % (35.0-45.0); HEMOGLOBIN 9.5 g/dl (12.0-16.0); LYMPHOCYTES # (AUTO) 0.9 X10'3 (1.1-4.8); MEAN CORPUSCULAR HEMOGLOBIN 24.5 PG (27.0-31.0); MEAN CORPUSCULAR HGB CONC 30.8 g/dL (33.0-36.5); MEAN CORPUSCULAR VOLUME 79.4 FL (78-98); MEAN PLATELET VOLUME 8.5 FL (7.4-10.4); MONOCYTES # (AUTO) 0.3 X10'3 (0-0.9); NEUTROPHILS # (AUTO) 2.9 X10'3 (1.8-7.7); NEUTROPHILS % (AUTO) 67.8 % (42-75); PLATELET COUNT 218 X10'3 (140-440); RED BLOOD COUNT 3.89 X10'6 (4.20-5.60); RED CELL DISTRIBUTION WIDTH 21.3 % (11.5-14.5); WHITE BLOOD COUNT 4.3 X10'3 (4.5-11.0)
[2021-09-07 19:14] LABS: ALANINE AMINOTRANSFERASE 25 U/L (12-78); ALBUMIN 2.9 G/DL (3.4-5.0); ALBUMIN/GLOBULIN RATIO 0.7 (1.1-1.5); ALKALINE PHOSPHATASE 302 IU/L (46-116); ANION GAP 13 (8-16); ASPARTATE AMINO TRANSFERASE 24 U/L (10-37); BILIRUBIN,TOTAL 1.3 MG/DL (0.1-1.0); BLOOD UREA NITROGEN 110 MG/DL (7-18); BUN/CREATININE RATIO 32.1 (6.6-38.0); CALCIUM 8.7 MG/DL (8.5-10.1); CHLORIDE 100 MMOL/L (99-107); CREATININE 3.43 MG/DL (0.40-0.90); GLUCOSE 440 MG/DL (70-104); POTASSIUM 4.8 MMOL/L (3.5-5.1); SODIUM 135 MMOL/L (135-145); TOTAL PROTEIN 7.3 G/DL (6.4-8.2); eGFR 13 ML/MIN
[2021-09-07] MEDS ORDERED: INSU100V11 SQ (19:29)
[2021-09-07] MEDS ORDERED: DOXY100C43 PO (19:34)
[2021-09-07 20:47] LABS: ANISOCYTOSIS 3+; MICROCYTOSIS 1+; PLATELET ESTIMATE NORMAL; SCHISTOCYTES FEW
[2021-09-07 20:48] LABS: ELLIPTOCYTES FEW; POLYCHROMASIA FEW
== END 2021-09-07 21:42 | disposition home or self-care (01) ==
LOC: ER 17:59
DX: E11.65 Type 2 diabetes mellitus with hyperglycemia (principal); L03.115 Cellulitis of right lower limb; L03.116 Cellulitis of left lower limb; R21 Rash and other nonspecific skin eruption; I48.91 Unspecified atrial fibrillation; E78.00 Pure hypercholesterolemia, unspecified; I11.0 Hypertensive heart disease with heart failure; I50.9 Heart failure, unspecified; J44.9 Chronic obstructive pulmonary disease, unspecified; I12.0 Hypertensive chronic kidney disease with stage 5 chronic kidney disease or end stage renal disease; E11.22 Type 2 diabetes mellitus with diabetic chronic kidney disease; N18.6 End stage renal disease; Z85.038 Personal history of other malignant neoplasm of large intestine; Z79.2 Long term (current) use of antibiotics; Z79.4 Long term (current) use of insulin; Z79.899 Other long term (current) drug therapy
CPT/HCPCS: 36415; 80053; 82948; 85008; 85025; 96361; 96374; 99284; J1815; J7030

== ENCOUNTER 2021-09-17 11:42 | Emergency (ER) | payer MEDICARE, OTHER ==
[~2021-09-17] VITALS: Ht 167.6 cm; Wt 131.8 kg
[~2021-09-17 11:42] MED LIST changes: +INSU100V11 SQ
[2021-09-17] MEDS ORDERED: ondansetron 4mg rapidly disintigrating tab PO ONE (12:55)
[2021-09-17] MEDS ORDERED: HYDROcodone/acetaminophen 5mg/325mg tablet PO ONE (12:55)
[2021-09-17] MEDS ORDERED: CLIN150C2 PO (12:56)
--- NOTE | 2021-09-17 13:51 | NUR ---
Assist pt with bedpan
[2021-09-17 13:52] VITALS: BP 108/67
== END 2021-09-17 15:08 | disposition home or self-care (01) ==
LOC: ER 11:43
DX: I89.0 Lymphedema, not elsewhere classified (principal); M79.604 Pain in right leg; I48.91 Unspecified atrial fibrillation; E78.00 Pure hypercholesterolemia, unspecified; J44.9 Chronic obstructive pulmonary disease, unspecified; I13.0 Hypertensive heart and chronic kidney disease with heart failure and stage 1 through stage 4 chronic kidney disease, or unspecified chronic kidney disease; E11.22 Type 2 diabetes mellitus with diabetic chronic kidney disease; N18.9 Chronic kidney disease, unspecified; Z85.038 Personal history of other malignant neoplasm of large intestine; Z87.01 Personal history of pneumonia (recurrent); Z79.2 Long term (current) use of antibiotics; Z79.4 Long term (current) use of insulin; Z79.899 Other long term (current) drug therapy
CPT/HCPCS: 99283

== ENCOUNTER 2021-10-06 12:07 | Inpatient (IN) | payer MEDICARE, OTHER ==
[~2021-10-06] VITALS: Ht 167.6 cm; Wt 138.6 kg
[~2021-10-06 12:07] MED LIST changes: +CLIN150C2 PO; -DOXY100C43 PO; +epiNEPHrine 0.1mg/ml 10ml syringe ONE
[2021-10-06 12:55] LABS: BASOPHILS % (AUTO) 0.6 % (0-1); EOSINOPHILS % (AUTO) 0.7 % (0-6); HEMATOCRIT 30.5 % (35.0-45.0); HEMOGLOBIN 9.5 g/dl (12.0-16.0); LYMPHOCYTES # (AUTO) 1.1 X10'3 (1.1-4.8); LYMPHOCYTES % (AUTO) 16.9 % (21-51); MEAN CORPUSCULAR HEMOGLOBIN 24.1 PG (27.0-31.0); MEAN CORPUSCULAR HGB CONC 31.1 g/dL (33.0-36.5); MEAN CORPUSCULAR VOLUME 77.7 FL (78-98); MEAN PLATELET VOLUME 7.5 FL (7.4-10.4); MONOCYTES # (AUTO) 0.6 X10'3 (0-0.9); MONOCYTES % (AUTO) 9.1 % (2-12); NEUTROPHILS # (AUTO) 4.6 X10'3 (1.8-7.7); NEUTROPHILS % (AUTO) 72.7 % (42-75); PLATELET COUNT 241 X10'3 (140-440); RED BLOOD COUNT 3.92 X10'6 (4.20-5.60); RED CELL DISTRIBUTION WIDTH 23.2 % (11.5-14.5); WHITE BLOOD COUNT 6.3 X10'3 (4.5-11.0)
--- NOTE | 2021-10-06 13:00 | NUR ---
Pt c/o pain in B LE and she is SOB. B LE have +4 edema with several weeping wounds. She has many requests. Speaks in full sentences.
[2021-10-06 13:09] LABS: ALANINE AMINOTRANSFERASE 21 U/L (12-78); ALBUMIN 2.8 G/DL (3.4-5.0); ALBUMIN/GLOBULIN RATIO 0.6 (1.1-1.5); ALKALINE PHOSPHATASE 229 IU/L (46-116); ANION GAP 10 (8-16); ASPARTATE AMINO TRANSFERASE 29 U/L (10-37); BILIRUBIN,TOTAL 1.2 MG/DL (0.1-1.0); BLOOD UREA NITROGEN 102 MG/DL (7-18); BUN/CREATININE RATIO 31.2 (6.6-38.0); CHLORIDE 104 MMOL/L (99-107); CREATININE 3.27 MG/DL (0.40-0.90); GLUCOSE 138 MG/DL (70-104); POTASSIUM 4.3 MMOL/L (3.5-5.1); SODIUM 138 MMOL/L (135-145); TOTAL PROTEIN 7.3 G/DL (6.4-8.2); eGFR 14 ML/MIN
[2021-10-06 13:18] LABS: MAGNESIUM 2.7 MG/DL (1.5-2.4)
[2021-10-06 13:26] LABS: PLATELET ESTIMATE NORMAL
[2021-10-06 13:27] LABS: ANISOCYTOSIS 3+; ELLIPTOCYTES FEW; HYPOCHROMASIA 1+; MICROCYTOSIS 1+
[2021-10-06] MEDS ORDERED: vancomycin inj 1,000 MG in normal saline 250ml IV soln 250 ML IV ONE (13:40)
[2021-10-06] MEDS ORDERED: diltiazem 30mg tablet PO ONE (13:40)
[2021-10-06] MEDS ORDERED: diltiazem 5mg/ml 5ml inj. IV ONE (13:40)
[2021-10-06] MEDS ORDERED: vancomycin/NS 1 GM ADD-VANTAGE 250 ML IV ONE (13:45)
[2021-10-06] MEDS ORDERED: LOSA50TA64 PO (14:24)
[2021-10-06] MEDS ORDERED: FURO80TA3 PO (14:24)
[2021-10-06] MEDS ORDERED: DOCU100C40 PO (14:24)
[2021-10-06] MEDS ORDERED: APIX5TAB3 PO (14:24)
[2021-10-06] MEDS ORDERED: ACET325T55 PO (14:24)
[2021-10-06] MEDS ORDERED: INSU100I31 SQ (14:24)
[2021-10-06] MEDS ORDERED: MELA10TA2 PO (14:24)
[2021-10-06] MEDS ORDERED: INSU100V13 SQ (14:26)
[2021-10-06 15:39] LABS: OCCULT BLOOD STOOL POSITIVE (Neg)
[2021-10-06] MEDS ORDERED: acetaminophen 325mg tablet PO PRN ×3 (15:45→18:55)
[2021-10-06] MEDS ORDERED: docusate sod 100mg capsule PO PRN (15:45)
[2021-10-06] MEDS ORDERED: magnesium 2GM in 50ml NS 50 ML IV PRN (18:55)
[2021-10-06] MEDS ORDERED: magnesium hydroxide 30ml (MOM) UD suspension PO PRN (18:55)
[2021-10-06] MEDS ORDERED: mag hydrox/Alum hydrox/simeth 30ml oral suspension PO PRN (18:55)
[2021-10-06] MEDS ORDERED: MESSAGE TO PHARMACY PO ONE (18:55)
[2021-10-06] MEDS ORDERED: bisacodyl 10mg suppository rectal RC PRN (18:55)
[2021-10-06] MEDS ORDERED: potassium Cl 20 mEq SR tablet PO PRN ×2 (18:55)
[2021-10-06] MEDS ORDERED: potassium CL 10mEq/100ml bag 100 ML IV PRN (18:55)
[2021-10-06] MEDS ORDERED: acetaminophen 650mg rectal suppository RC PRN (18:55)
[2021-10-06] MEDS ORDERED: magnesium Cl slow-release 64mg tablet PO PRN (18:55)
[2021-10-06] MEDS ORDERED: dextrose 50%-water 50ml dispensing syringe IV PRN ×2 (18:55)
[2021-10-06] MEDS ORDERED: diltiazem-D5W 125mg/125ml 125 ML IV SCH (18:55)
[2021-10-06] MEDS ORDERED: morphine 2 MG/ML inj. syringe IV PRN ×2 (18:55)
[2021-10-06] MEDS ORDERED: glucagon, human recombinant 1mg kit SUBCUT PRN (18:55)
[2021-10-06] MEDS ORDERED: dextrose ORAL solution 15 GM/59 ML bottle PO PRN ×2 (18:55)
[2021-10-06] MEDS ORDERED: magnesium 4gm in 100ml NS 100 ML IV PRN (18:55)
[2021-10-06 19:23] LABS: HEMOGLOBIN A1C 9.1 % (4.5-6.2)
[2021-10-06] MEDS: docusate sod 100mg capsule PO SCH (20:00)
[2021-10-06] MEDS: K and/or MAG REPLACEMENT MC SCH (20:02)
[2021-10-06] MEDS: atorvastatin 10mg tablet PO SCH (20:38)
[2021-10-06] MEDS: normal saline 1000ml 1,000 ML IV SCH (20:43)
[2021-10-06] MEDS: diltiazem-NS 100mg/100ml 100 ML IV SCH (20:45)
[2021-10-06] MEDS: DOBUTamine-DoBUTrex 500mg/D5W 250 ML IV SCH (20:55)
[2021-10-06] MEDS: insulin glargine (Lantus) pen - multi-dose SQ SCH (21:00)
[2021-10-06] MEDS ORDERED: non-formulary drug (Melatonin 1 TAB) PO SCH (21:00)
[2021-10-06] MEDS: HYDROcodone/acetaminophen 5mg/325mg tablet PO PRN (21:24)
[2021-10-06] MEDS: linezolid 600mg/300ml PREMIX 300 ML IV SCH (21:37)
--- NOTE | 2021-10-06 22:31 | NUR ---
Chatted with Dr. Patterson about patient's spiking heart rate, patient was trending in the 150's. Dobutamine stopped at this time and Cardizem continued.
[2021-10-07] VITALS (8 sets, daily range): BP systolic 97–135; BP diastolic 45–63
--- NOTE | 2021-10-07 07:13 | NUR ---
Patient in room PCU 3015. I have received report from Verenice MORALES and had the opportunity to ask questions and assume patient care. Pt chest rising and falling evenly. semi fowlers in the bed, safety measures in place. no s/sx acute distress.
[2021-10-07] MEDS: K and/or MAG REPLACEMENT MC SCH ×2 (08:00→20:00)
[2021-10-07 08:01] LABS: HEMOGLOBIN 8.8 g/dl (12.0-16.0); LYMPHOCYTES # (AUTO) 0.8 X10'3 (1.1-4.8); MONOCYTES # (AUTO) 0.4 X10'3 (0-0.9); NEUTROPHILS # (AUTO) 3.9 X10'3 (1.8-7.7); PLATELET COUNT 218 X10'3 (140-440)
[2021-10-07 08:05] LABS: BASOPHILS % (AUTO) 0.5 % (0-1); EOSINOPHILS % (AUTO) 0.6 % (0-6); LYMPHOCYTES % (AUTO) 15.5 % (21-51); MEAN CORPUSCULAR HEMOGLOBIN 24.3 PG (27.0-31.0); MEAN CORPUSCULAR HGB CONC 31.3 g/dL (33.0-36.5); MEAN CORPUSCULAR VOLUME 77.7 FL (78-98); MEAN PLATELET VOLUME 7.6 FL (7.4-10.4); MONOCYTES % (AUTO) 7.1 % (2-12); NEUTROPHILS % (AUTO) 76.3 % (42-75); RED CELL DISTRIBUTION WIDTH 23.1 % (11.5-14.5); WHITE BLOOD COUNT 5.1 X10'3 (4.5-11.0)
[2021-10-07] MEDS: diltiazem-NS 100mg/100ml 100 ML IV SCH (08:58)
[2021-10-07] MEDS: pantoprazole 40mg Tablet.DR PO SCH (08:59)
[2021-10-07] MEDS: multivitamins, therapeutics tablet PO SCH (08:59)
[2021-10-07] MEDS: losartan 50mg tablet PO SCH (08:59)
[2021-10-07] MEDS: docusate sod 100mg capsule PO SCH ×2 (08:59→21:01)
[2021-10-07] MEDS: linezolid 600mg/300ml PREMIX 300 ML IV SCH ×2 (09:00→21:03)
[2021-10-07 09:15] LABS: ALANINE AMINOTRANSFERASE 19 U/L (12-78); ALBUMIN 2.6 G/DL (3.4-5.0); ALBUMIN/GLOBULIN RATIO 0.5 (1.1-1.5); ALKALINE PHOSPHATASE 201 IU/L (46-116); ANION GAP 13 (8-16); ASPARTATE AMINO TRANSFERASE 29 U/L (10-37); BILIRUBIN,TOTAL 1.4 MG/DL (0.1-1.0); BLOOD UREA NITROGEN 96 MG/DL (7-18); BUN/CREATININE RATIO 31.3 (6.6-38.0); CHLORIDE 103 MMOL/L (99-107); CHOL/HDL RATIO 2.1 (0.00-4.99); CHOLESTEROL 83 MG/DL (0-200); CREATININE 3.07 MG/DL (0.40-0.90); GLUCOSE 183 MG/DL (70-104); HDL CHOLESTEROL 40 MG/DL (35-60); LDL CHOLESTEROL 41 MG/DL (50-100); MAGNESIUM 2.6 MG/DL (1.5-2.4); PHOSPHORUS 4.6 MG/DL (2.3-4.5); POTASSIUM 4.4 MMOL/L (3.5-5.1); SODIUM 137 MMOL/L (135-145); TOTAL CARBON DIOXIDE 20.9 MMOL/L (24-32); TOTAL PROTEIN 7.4 G/DL (6.4-8.2); TRIGLYCERIDES 42 MG/DL (20-135); eGFR 15 ML/MIN
[2021-10-07] MEDS: metoprolol succinate 25mg (24-HOUR) SR. Tablet PO SCH (09:18)
--- NOTE | 2021-10-07 10:02 | NUR ---
critical trop: 132. Dr. Sarah Paged "PAGER ID: [phone] MESSAGE: RE: Liberty Goss: Critical: Trop: 132. (previous: 56, 44). no chest pain. -Prerna #[phone]"
--- NOTE | 2021-10-07 11:22 | NUR ---
Nathalie/DM consult: Provided pt w/ written and verbal low tyramine diet education w/ RD contact info. Pt then had to go for procedure, will provide DM education at later time, A1C 9.1 Addendum: 10/07/21 at [address] Amended: Links added.
[2021-10-07] MEDS: diltiazem 30mg tablet PO SCH ×3 (11:46→21:00)
[2021-10-07] MEDS: diphenhydrAMINE 25mg capsule PO PRN (11:46)
[2021-10-07] MEDS: DOBUTamine-DoBUTrex 500mg/D5W 250 ML IV SCH ×2 (11:47→19:49)
[2021-10-07] MEDS: insulin Lispro (HumaLOG) vial - multi-dose SQ SCH ×2 (14:06→19:15)
[2021-10-07] MEDS ORDERED: furosemide 20 MG/2 ML vial IV ONE (17:50)
--- NOTE | 2021-10-07 18:37 | NUR ---
Problems reprioritized. Patient report given, questions answered & plan of care reviewed with Yuko Reyna RN. pt without s/sx acute distress
--- NOTE | 2021-10-07 18:48 | NUR ---
Patient in room PCU 3021. I have received report from Prerna MORALES and had the opportunity to ask questions and assume patient care.
[2021-10-07] MEDS: sodium ferric gluc complex inj 125 MG in normal saline 100ml IV soln 90 ML IV SCH (19:16)
[2021-10-07] MEDS: atorvastatin 10mg tablet PO SCH (21:02)
[2021-10-07] MEDS: insulin glargine (Lantus) pen - multi-dose SQ SCH (21:40)
--- NOTE | 2021-10-07 22:20 | NUR ---
Non-admin 2100 diltiazem dose because SBP was 97 and map at 55.
--- NOTE | 2021-10-07 22:40 | NUR ---
Pg dr guzman per low BP. PAGER ID: [phone] MESSAGE: Re: Liberty Goss 3021, BP of (54). She is on Dobutamine @ 20 mls/hr. Pls advise. Thank you.
--- NOTE | 2021-10-07 22:51 | NUR ---
Retook BP 109/56 (70), pt in no apparent distress, will continue to monitor.
[2021-10-08] VITALS (31 sets, daily range): BP systolic 61–139; BP diastolic 34–99
[2021-10-08] MEDS: DOBUTamine-DoBUTrex 500mg/D5W 250 ML IV SCH ×2 (00:04→19:53)
[2021-10-08] MEDS: HYDROcodone/acetaminophen 10/325mg tab PO PRN ×2 (02:00→09:03)
--- NOTE | 2021-10-08 02:48 | NUR ---
At 0200, pt was boosted and dry flows changed. Pillows taken out from under legs for a break. Pain medication given.
--- NOTE | 2021-10-08 05:25 | NUR ---
Pt was rounded on frequently throughout the night. In no apparent distress and was monitored per unit protocol.
[2021-10-08 06:23] LABS: BASOPHILS % (AUTO) 0.4 % (0-1); EOSINOPHILS % (AUTO) 0.3 % (0-6); HEMATOCRIT 27.2 % (35.0-45.0); HEMOGLOBIN 8.6 g/dl (12.0-16.0); LYMPHOCYTES # (AUTO) 0.6 X10'3 (1.1-4.8); LYMPHOCYTES % (AUTO) 13.3 % (21-51); MEAN CORPUSCULAR HEMOGLOBIN 24.3 PG (27.0-31.0); MEAN CORPUSCULAR HGB CONC 31.6 g/dL (33.0-36.5); MONOCYTES # (AUTO) 0.4 X10'3 (0-0.9); NEUTROPHILS # (AUTO) 3.8 X10'3 (1.8-7.7); PLATELET COUNT 210 X10'3 (140-440); RED BLOOD COUNT 3.53 X10'6 (4.20-5.60); RED CELL DISTRIBUTION WIDTH 22.4 % (11.5-14.5); WHITE BLOOD COUNT 4.9 X10'3 (4.5-11.0)
--- NOTE | 2021-10-08 06:27 | NUR ---
Problems reprioritized. Patient report given, questions answered & plan of care reviewed with Prerna MORALES.
--- NOTE | 2021-10-08 06:32 | NUR ---
Patient in room PCU 3021. I have received report from Yuko Reyna RN and had the opportunity to ask questions and assume patient care. Pt sitting up in bed, breathing even and non labored, typing on computer. pt endorses very little sleep for second night in a row, (rest encouraged) and endorses seeing shapes of people in her room that others do not see. pt sitting up writing her will out on her laptop. Dobutamine patent and dripping per md order. no s/sx acute distress
[2021-10-08 06:37] LABS: ALANINE AMINOTRANSFERASE 17 U/L (12-78); ALBUMIN 2.4 G/DL (3.4-5.0); ALBUMIN/GLOBULIN RATIO 0.6 (1.1-1.5); ALKALINE PHOSPHATASE 190 IU/L (46-116); ANION GAP 13 (8-16); ASPARTATE AMINO TRANSFERASE 24 U/L (10-37); BILIRUBIN,TOTAL 1.4 MG/DL (0.1-1.0); BLOOD UREA NITROGEN 103 MG/DL (7-18); CALCIUM 8.7 MG/DL (8.5-10.1); CHLORIDE 101 MMOL/L (99-107); CREATININE 3.03 MG/DL (0.40-0.90); GLUCOSE 280 MG/DL (70-104); MAGNESIUM 2.5 MG/DL (1.5-2.4); PHOSPHORUS 4.2 MG/DL (2.3-4.5); POTASSIUM 4.3 MMOL/L (3.5-5.1); SODIUM 134 MMOL/L (135-145); TOTAL CARBON DIOXIDE 20.1 MMOL/L (24-32); TOTAL PROTEIN 6.5 G/DL (6.4-8.2); eGFR 15 ML/MIN
[2021-10-08] MEDS: K and/or MAG REPLACEMENT MC SCH ×2 (08:00→20:00)
[2021-10-08] MEDS: ondansetron/PF 4mg/2ml inj IV PRN ×2 (08:52→18:57)
[2021-10-08] MEDS: linezolid 600mg/300ml PREMIX 300 ML IV SCH (08:59)
[2021-10-08] MEDS: pantoprazole 40mg Tablet.DR PO SCH (08:59)
[2021-10-08] MEDS: diltiazem 30mg tablet PO SCH (08:59)
[2021-10-08] MEDS: multivitamins, therapeutics tablet PO SCH (08:59)
[2021-10-08] MEDS: docusate sod 100mg capsule PO SCH ×2 (08:59→20:56)
[2021-10-08] MEDS: losartan 50mg tablet PO SCH (08:59)
[2021-10-08] MEDS: furosemide 20 MG/2 ML vial IV SCH ×2 (08:59→20:56)
[2021-10-08] MEDS: metoprolol succinate 25mg (24-HOUR) SR. Tablet PO SCH (09:02)
[2021-10-08] MEDS: insulin Lispro (HumaLOG) vial - multi-dose SQ SCH ×2 (09:16→15:50)
[2021-10-08] MEDS ORDERED: LIDOcaine Viscous 15ml cup ONE (11:19)
[2021-10-08] MEDS ORDERED: fentaNYL/PF 50MCG/1 ML 2ML syringe ONE (11:19)
[2021-10-08] MEDS ORDERED: MIDAZolam 1 MG/ML 5ML VIAL ONE (11:19)
--- NOTE | 2021-10-08 13:04 | NUR ---
called arturo in pharmacy to let him know pt back from EGD procedure so he can prepare sodium ferric gluc complex for administration. per praneeth in pharmacy, she will let arturo know.
[2021-10-08] MEDS: sodium ferric gluc complex inj 125 MG in normal saline 100ml IV soln 90 ML IV SCH (13:48)
--- NOTE | 2021-10-08 18:23 | NUR ---
Problems reprioritized. Patient report given, questions answered & plan of care reviewed with Marta MORALES. Pt sitting up in bed, reporting nausea. Marta MORALES aware. Dobutamine running at 5gs.
[2021-10-08] MEDS: normal saline 1000ml 1,000 ML IV SCH (18:55)
[2021-10-08] MEDS: atorvastatin 10mg tablet PO SCH (20:56)
[2021-10-08] MEDS: linezolid 600mg tablet PO SCH (20:56)
[2021-10-08] MEDS: insulin glargine (Lantus) pen - multi-dose SQ SCH (21:01)
[2021-10-09] VITALS (9 sets, daily range): BP systolic 92–134; BP diastolic 47–90
[2021-10-09] MEDS: HYDROcodone/acetaminophen 10/325mg tab PO PRN ×3 (01:53→20:25)
[2021-10-09] MEDS: DOBUTamine-DoBUTrex 500mg/D5W 250 ML IV SCH (01:54)
[2021-10-09 07:16] LABS: BASOPHILS % (AUTO) 0.3 % (0-1); EOSINOPHILS % (AUTO) 0.6 % (0-6); HEMATOCRIT 26.9 % (35.0-45.0); HEMOGLOBIN 8.5 g/dl (12.0-16.0); LYMPHOCYTES # (AUTO) 0.5 X10'3 (1.1-4.8); LYMPHOCYTES % (AUTO) 9.7 % (21-51); MEAN CORPUSCULAR HEMOGLOBIN 24.5 PG (27.0-31.0); MEAN CORPUSCULAR HGB CONC 31.7 g/dL (33.0-36.5); MEAN CORPUSCULAR VOLUME 77.1 FL (78-98); MEAN PLATELET VOLUME 6.9 FL (7.4-10.4); MONOCYTES # (AUTO) 0.4 X10'3 (0-0.9); MONOCYTES % (AUTO) 7.9 % (2-12); NEUTROPHILS # (AUTO) 4.3 X10'3 (1.8-7.7); NEUTROPHILS % (AUTO) 81.5 % (42-75); PLATELET COUNT 198 X10'3 (140-440); RED BLOOD COUNT 3.49 X10'6 (4.20-5.60); RED CELL DISTRIBUTION WIDTH 22.7 % (11.5-14.5); WHITE BLOOD COUNT 5.3 X10'3 (4.5-11.0)
[2021-10-09 07:32] LABS: ALANINE AMINOTRANSFERASE 15 U/L (12-78); ALBUMIN 2.5 G/DL (3.4-5.0); ALBUMIN/GLOBULIN RATIO 0.6 (1.1-1.5); ALKALINE PHOSPHATASE 164 IU/L (46-116); ANION GAP 12 (8-16); ASPARTATE AMINO TRANSFERASE 24 U/L (10-37); BILIRUBIN,TOTAL 1.4 MG/DL (0.1-1.0); BLOOD UREA NITROGEN 87 MG/DL (7-18); CALCIUM 8.9 MG/DL (8.5-10.1); CHLORIDE 101 MMOL/L (99-107); GLUCOSE 224 MG/DL (70-104); MAGNESIUM 2.5 MG/DL (1.5-2.4); POTASSIUM 4.4 MMOL/L (3.5-5.1); SODIUM 134 MMOL/L (135-145); TOTAL PROTEIN 6.4 G/DL (6.4-8.2); eGFR 16 ML/MIN
[2021-10-09 07:36] LABS: PHOSPHORUS 4.6 MG/DL (2.3-4.5)
[2021-10-09] MEDS: K and/or MAG REPLACEMENT MC SCH ×2 (08:00→20:00)
[2021-10-09] MEDS: multivitamins, therapeutics tablet PO SCH (08:01)
[2021-10-09] MEDS: pantoprazole 40mg Tablet.DR PO SCH (08:01)
[2021-10-09] MEDS: ondansetron/PF 4mg/2ml inj IV PRN ×3 (08:01→20:09)
[2021-10-09] MEDS: furosemide 20 MG/2 ML vial IV SCH ×2 (08:01→20:10)
[2021-10-09] MEDS: docusate sod 100mg capsule PO SCH ×2 (08:01→20:11)
[2021-10-09] MEDS: losartan 50mg tablet PO SCH (08:01)
[2021-10-09 08:11] LABS: ANISOCYTOSIS 3+; HYPOCHROMASIA 1+; MICROCYTOSIS 1+; PLATELET ESTIMATE NORMAL; SCHISTOCYTES FEW
[2021-10-09 08:12] LABS: ELLIPTOCYTES FEW; TEAR DROP CELLS FEW
[2021-10-09] MEDS: sodium ferric gluc complex inj 125 MG in normal saline 100ml IV soln 90 ML IV SCH (10:20)
[2021-10-09] MEDS: insulin Lispro (HumaLOG) vial - multi-dose SQ SCH ×2 (10:42→14:03)
[2021-10-09] MEDS: metoprolol succinate 25mg (24-HOUR) SR. Tablet PO SCH (10:45)
[2021-10-09] MEDS: linezolid 600mg tablet PO SCH ×2 (10:45→20:10)
[2021-10-09] MEDS: HYDROcodone/acetaminophen 5mg/325mg tablet PO PRN (13:58)
--- NOTE | 2021-10-09 14:57 | NUR ---
rhea ineffective. Dr. Sarah paged. PAGER ID: [phone] MESSAGE: Liberty Goss: 3021: Zofrjeferson ineffective. pt dry heaving and unable to eat this shift due to nausea. -Prerna #[phone]
--- NOTE | 2021-10-09 16:38 | NUR ---
F/u: Per chemical analyst pt dry heaving and unable to eat this shift due to nausea. Written DM education with RD contact information placed in patient's chart. Noted current A1c of 9.1% is stable with A1c in March of this year. Pt received written and verbal DM education with RD contact information at that admit. Will remain available. Addendum: 10/09/21 at [address] Amended: Links added.
--- NOTE | 2021-10-09 17:03 | NUR ---
Dr. Sarah paged secondary to hypoglycemia and nausea. "RE: WolfgangLory malikna: 3021: Blood sugar 46. will tx per protocol. but pt continues with nausea and dry heaving, has not eaten today. rhea oneal. Audrey #[phone]"
--- NOTE | 2021-10-09 17:43 | NUR ---
Patient in room U 3021. I have received report from dieudonne Del Valle and had the opportunity to ask questions and assume patient care. Addendum: 10/09/21 at 1820 by Prerna Faye RN this note is for 0630 10/09/21
--- NOTE | 2021-10-09 18:20 | NUR ---
Problems reprioritized. Patient report given, questions answered & plan of care reviewed with Marta MORALES. pt content, sitting in bed eating a string cheese. no s/sx acute distress
[2021-10-09] MEDS: atorvastatin 10mg tablet PO SCH (20:11)
[2021-10-09] MEDS: insulin glargine (Lantus) pen - multi-dose SQ SCH (21:00)
[2021-10-10] MEDS: HYDROcodone/acetaminophen 10/325mg tab PO PRN ×2 (01:47→06:33)
[2021-10-10] MEDS: DOBUTamine-DoBUTrex 500mg/D5W 250 ML IV SCH (01:51)
[2021-10-10 02:00] VITALS: BP 119/80
[2021-10-10 06:00] VITALS: BP 115/46
--- NOTE | 2021-10-10 06:37 | NUR ---
Patient in room U 3021. I have received report from Marta MORALES and had the opportunity to ask questions and assume patient care. Patient is resting in bed during shift change, wearing her CPAP from home. Patient complained of pain 8/9 in back and lower extremities. Reviewed plan of care with patient.
[2021-10-10 06:58] LABS: BASOPHILS % (AUTO) 0.2 % (0-1); EOSINOPHILS % (AUTO) 0.7 % (0-6); HEMATOCRIT 28.1 % (35.0-45.0); HEMOGLOBIN 8.9 g/dl (12.0-16.0); LYMPHOCYTES # (AUTO) 0.5 X10'3 (1.1-4.8); LYMPHOCYTES % (AUTO) 7.9 % (21-51); MEAN CORPUSCULAR HEMOGLOBIN 24.5 PG (27.0-31.0); MEAN CORPUSCULAR HGB CONC 31.8 g/dL (33.0-36.5); MEAN CORPUSCULAR VOLUME 77.2 FL (78-98); MEAN PLATELET VOLUME 6.9 FL (7.4-10.4); MONOCYTES # (AUTO) 0.4 X10'3 (0-0.9); MONOCYTES % (AUTO) 5.8 % (2-12); NEUTROPHILS # (AUTO) 5.3 X10'3 (1.8-7.7); NEUTROPHILS % (AUTO) 85.4 % (42-75); PLATELET COUNT 208 X10'3 (140-440); RED BLOOD COUNT 3.64 X10'6 (4.20-5.60); RED CELL DISTRIBUTION WIDTH 22.5 % (11.5-14.5); WHITE BLOOD COUNT 6.2 X10'3 (4.5-11.0)
[2021-10-10 07:24] LABS: ALANINE AMINOTRANSFERASE 16 U/L (12-78); ALBUMIN 2.6 G/DL (3.4-5.0); ALBUMIN/GLOBULIN RATIO 0.7 (1.1-1.5); ALKALINE PHOSPHATASE 165 IU/L (46-116); ANION GAP 11 (8-16); ASPARTATE AMINO TRANSFERASE 28 U/L (10-37); BILIRUBIN,TOTAL 1.3 MG/DL (0.1-1.0); BLOOD UREA NITROGEN 85 MG/DL (7-18); BUN/CREATININE RATIO 28.6 (6.6-38.0); CALCIUM 9.1 MG/DL (8.5-10.1); CHLORIDE 100 MMOL/L (99-107); CREATININE 2.97 MG/DL (0.40-0.90); GLUCOSE 155 MG/DL (70-104); MAGNESIUM 2.6 MG/DL (1.5-2.4); PHOSPHORUS 4.9 MG/DL (2.3-4.5); POTASSIUM 4.7 MMOL/L (3.5-5.1); SODIUM 132 MMOL/L (135-145); TOTAL CARBON DIOXIDE 20.6 MMOL/L (24-32); TOTAL PROTEIN 6.6 G/DL (6.4-8.2); eGFR 15 ML/MIN
[2021-10-10 07:46] LABS: ANISOCYTOSIS 3+; MICROCYTOSIS 1+; PLATELET ESTIMATE NORMAL; POIKILOCYTOSIS FEW; POLYCHROMASIA FEW; TARGET CELLS FEW
[2021-10-10] MEDS: multivitamins, therapeutics tablet PO SCH (07:47)
[2021-10-10] MEDS: pantoprazole 40mg Tablet.DR PO SCH (07:47)
[2021-10-10] MEDS: losartan 50mg tablet PO SCH (07:47)
[2021-10-10] MEDS: docusate sod 100mg capsule PO SCH ×2 (07:48→19:59)
[2021-10-10] MEDS: furosemide 20 MG/2 ML vial IV SCH ×2 (07:49→19:37)
[2021-10-10] MEDS: K and/or MAG REPLACEMENT MC SCH ×2 (08:00→19:04)
[2021-10-10] MEDS: sodium ferric gluc complex inj 125 MG in normal saline 100ml IV soln 90 ML IV SCH (08:00)
[2021-10-10] MEDS: ondansetron/PF 4mg/2ml inj IV PRN (08:48)
[2021-10-10] MEDS: linezolid 600mg tablet PO SCH ×2 (09:41→19:57)
[2021-10-10] MEDS: metoprolol succinate 25mg (24-HOUR) SR. Tablet PO SCH (10:32)
[2021-10-10] MEDS: insulin Lispro (HumaLOG) vial - multi-dose SQ SCH ×2 (10:44→13:59)
[2021-10-10 11:00] VITALS: BP 107/42
[2021-10-10 15:00] VITALS: BP 86/47
--- NOTE | 2021-10-10 16:00 | NUR ---
PAGER ID: [phone] MESSAGE: Room 3020A: Ruma Goss: BP is currently 89/49 MAP 54, BP's have been similarly soft for the last hour. We stopped her dobutamine earlier in the shift. [place] [phone]
[2021-10-10 18:00] VITALS: BP 93/54
--- NOTE | 2021-10-10 18:30 | NUR ---
Problems reprioritized. Patient report given, questions answered & plan of care reviewed with Colby MORALES.
[2021-10-10] MEDS: normal saline 1000ml 1,000 ML IV SCH (18:55)
[2021-10-10] MEDS: lactobacillus rhamnosus 10,000 MMU CELLS/CAPSULE PO SCH (19:57)
[2021-10-10] MEDS: diphenhydrAMINE 25mg capsule PO PRN (19:57)
[2021-10-10] MEDS: insulin glargine (Lantus) pen - multi-dose SQ SCH (21:00)
[2021-10-10] MEDS: atorvastatin 10mg tablet PO SCH (21:20)
[2021-10-11 02:00] VITALS: BP 90/55
[2021-10-11 06:00] VITALS: BP 107/64
[2021-10-11 07:07] LABS: BASOPHILS % (AUTO) 0.1 % (0-1); EOSINOPHILS % (AUTO) 0.1 % (0-6); HEMATOCRIT 31.2 % (35.0-45.0); HEMOGLOBIN 9.5 g/dl (12.0-16.0); LYMPHOCYTES # (AUTO) 0.7 X10'3 (1.1-4.8); LYMPHOCYTES % (AUTO) 10.3 % (21-51); MEAN CORPUSCULAR HEMOGLOBIN 24.3 PG (27.0-31.0); MEAN CORPUSCULAR HGB CONC 30.6 g/dL (33.0-36.5); MEAN CORPUSCULAR VOLUME 79.4 FL (78-98); MEAN PLATELET VOLUME 7.7 FL (7.4-10.4); MONOCYTES # (AUTO) 0.4 X10'3 (0-0.9); MONOCYTES % (AUTO) 5.6 % (2-12); NEUTROPHILS # (AUTO) 5.3 X10'3 (1.8-7.7); NEUTROPHILS % (AUTO) 83.9 % (42-75); PLATELET COUNT 220 X10'3 (140-440); RED BLOOD COUNT 3.93 X10'6 (4.20-5.60); RED CELL DISTRIBUTION WIDTH 22.7 % (11.5-14.5); WHITE BLOOD COUNT 6.4 X10'3 (4.5-11.0)
[2021-10-11] MEDS: K and/or MAG REPLACEMENT MC SCH ×2 (08:00→20:00)
[2021-10-11 08:03] LABS: ANISOCYTOSIS 3+; ELLIPTOCYTES 1+; HYPOCHROMASIA 1+; PLATELET ESTIMATE NORMAL; POLYCHROMASIA FEW
[2021-10-11 08:04] LABS: ALANINE AMINOTRANSFERASE 16 U/L (12-78); ALBUMIN 2.7 G/DL (3.4-5.0); ALBUMIN/GLOBULIN RATIO 0.7 (1.1-1.5); ALKALINE PHOSPHATASE 176 IU/L (46-116); ANION GAP 17 (8-16); ASPARTATE AMINO TRANSFERASE 39 U/L (10-37); BILIRUBIN,TOTAL 1.5 MG/DL (0.1-1.0); BLOOD UREA NITROGEN 91 MG/DL (7-18); BUN/CREATININE RATIO 27.8 (6.6-38.0); BURR CELLS 1+; CALCIUM 9.2 MG/DL (8.5-10.1); CHLORIDE 96 MMOL/L (99-107); CREATININE 3.27 MG/DL (0.40-0.90); GLUCOSE 162 MG/DL (70-104); MAGNESIUM 2.7 MG/DL (1.5-2.4); MICROCYTOSIS 1+; PHOSPHORUS 5.2 MG/DL (2.3-4.5); POTASSIUM 5.5 MMOL/L (3.5-5.1); SODIUM 128 MMOL/L (135-145); TOTAL CARBON DIOXIDE 15.4 MMOL/L (24-32); TOTAL PROTEIN 6.8 G/DL (6.4-8.2); eGFR 14 ML/MIN
[2021-10-11] MEDS: multivitamins, therapeutics tablet PO SCH (08:51)
[2021-10-11] MEDS: furosemide 20 MG/2 ML vial IV SCH ×2 (08:52→20:00)
[2021-10-11] MEDS: pantoprazole 40mg Tablet.DR PO SCH (08:52)
[2021-10-11] MEDS: lactobacillus rhamnosus 10,000 MMU CELLS/CAPSULE PO SCH ×2 (08:52→20:00)
[2021-10-11] MEDS: linezolid 600mg tablet PO SCH ×2 (08:52→21:06)
[2021-10-11] MEDS: docusate sod 100mg capsule PO SCH ×2 (08:53→20:00)
[2021-10-11] MEDS: losartan 50mg tablet PO SCH (08:54)
[2021-10-11] MEDS: metoprolol succinate 25mg (24-HOUR) SR. Tablet PO SCH (09:16)
[2021-10-11] MEDS ORDERED: sodium polystyrene sulfonate 15gm/60ml oral suspension PO ONE (10:50)
[2021-10-11 11:00] VITALS: BP 107/44
--- NOTE | 2021-10-11 11:22 | NUR ---
Initial: Pt admitted w/ acute respiratory failure, ARF, CHF, LLE cellulitis and GI bleed per EMR. Per WOC pt w/ large area of full thickness skin loss on RLE. Pt currently on CCHO diet w/ poor PO intake, avg 24% x 10 meals not meeting needs. Pt may benefit from Jasper Smoothies BID to assist w/ wound healing as well as Glucerna TID for additional calories and protein; to be sent pending MD verification. [facility] 10/05 receiving routine colace. Will continue to monitor closely. Recs: 1. Continue CCHO diet as tolerated 2. Jasper smoothie BID, Glucerna TID; pending MD verification 3. Bowel care per rx 4. Weekly wts Addendum: 10/11/21 at [address] Amended: Links added.
[2021-10-11] MEDS ORDERED: sodium bicarbonate (8.4%) inj. 100 MEQ in sodium chloride 0.45% 1,000 ML IV SCH (11:45)
[2021-10-11 15:00] VITALS: BP_SYST 90
[2021-10-11 18:00] VITALS: BP 100/55
[2021-10-11] MEDS: NUT.TX.GLUC.INTOLER,LAC-FR,SOY (GLUCERNA) 237 ML PO SCH (18:00)
--- NOTE | 2021-10-11 18:30 | NUR ---
Patient in room PCU 3021. I have received report from Ashkan MORALES and had the opportunity to ask questions and assume patient care.
[2021-10-11] MEDS: insulin Lispro (HumaLOG) vial - multi-dose SQ SCH (19:31)
[2021-10-11] MEDS: atorvastatin 10mg tablet PO SCH (21:05)
[2021-10-11] MEDS: insulin glargine (Lantus) pen - multi-dose SQ SCH (21:41)
[2021-10-11 22:00] VITALS: BP 105/54
[2021-10-12] VITALS (7 sets, daily range): BP systolic 97–114; BP diastolic 41–80
[2021-10-12] MEDS: JUVEN Smoothie Arginine/Glut./Ca2+Bmb (Juven 19.3pkt) 240ml cup PO SCH ×2 (07:30→12:30)
[2021-10-12] MEDS: K and/or MAG REPLACEMENT MC SCH ×2 (08:00→20:00)
[2021-10-12] MEDS: NUT.TX.GLUC.INTOLER,LAC-FR,SOY (GLUCERNA) 237 ML PO SCH ×3 (08:00→18:00)
[2021-10-12] MEDS: sodium ferric gluc complex inj 125 MG in normal saline 100ml IV soln 90 ML IV SCH (08:00)
[2021-10-12] MEDS: pantoprazole 40mg Tablet.DR PO SCH (08:52)
[2021-10-12] MEDS: multivitamins, therapeutics tablet PO SCH (08:52)
[2021-10-12] MEDS: docusate sod 100mg capsule PO SCH ×2 (08:52→19:36)
[2021-10-12] MEDS: lactobacillus rhamnosus 10,000 MMU CELLS/CAPSULE PO SCH ×2 (08:52→19:23)
[2021-10-12] MEDS: furosemide 20 MG/2 ML vial IV SCH ×2 (08:52→19:36)
[2021-10-12] MEDS: losartan 50mg tablet PO SCH (08:53)
[2021-10-12 09:02] LABS: ALBUMIN 2.5 G/DL (3.4-5.0); ANION GAP 12 (8-16); BLOOD UREA NITROGEN 103 MG/DL (7-18); BUN/CREATININE RATIO 26.9 (6.6-38.0); CALCIUM 8.8 MG/DL (8.5-10.1); CHLORIDE 97 MMOL/L (99-107); CREATININE 3.83 MG/DL (0.40-0.90); GLUCOSE 233 MG/DL (70-104); POTASSIUM 4.7 MMOL/L (3.5-5.1); SODIUM 131 MMOL/L (135-145); TOTAL CARBON DIOXIDE 22.1 MMOL/L (24-32); eGFR 12 ML/MIN
[2021-10-12] MEDS: insulin Lispro (HumaLOG) vial - multi-dose SQ SCH ×3 (09:15→19:31)
[2021-10-12] MEDS: metoprolol succinate 25mg (24-HOUR) SR. Tablet PO SCH (10:00)
--- NOTE | 2021-10-12 18:30 | NUR ---
Patient in room PCU 3021. I have received report from Ashkan MORALES and had the opportunity to ask questions and assume patient care.
[2021-10-12] MEDS: HYDROcodone/acetaminophen 10/325mg tab PO PRN (19:35)
[2021-10-12] MEDS: atorvastatin 10mg tablet PO SCH (21:30)
[2021-10-12] MEDS: insulin glargine (Lantus) pen - multi-dose SQ SCH (22:15)
[2021-10-13] VITALS (10 sets, daily range): BP systolic 80–98; BP diastolic 42–78
--- NOTE | 2021-10-13 01:45 | NUR ---
Pt's sodium bicarb was discontinued by Dr. Patterson at 08:16 10/12/21. Per AM nurse Ashkan MORALES, a bag of sodium bicarb was restarted at 75ml/hr due to pt's syncopal episode. This intervention doesn't reflect on the emar. A whole bag was infused. Dr. Herrmann was notified and informed me that pt is to no longer receive sodium bicarb.
--- NOTE | 2021-10-13 06:37 | NUR ---
Problems reprioritized. Patient report given, questions answered & plan of care reviewed with Pat MORALES.
--- NOTE | 2021-10-13 06:41 | NUR ---
Patient in room PCU 3021. I have received report from Yuko MORALES and had the opportunity to ask questions and assume patient care. Patient resting in bed in no acute distress.
--- NOTE | 2021-10-13 07:21 | NUR ---
Page Sent to DR. Patterson regarding low BP promotional table spacer PAGER ID: [phone] MESSAGE: 3021. Wolfgang. Pt has consistently low BP with map below 60. Last BP 91/48 with map of 58. HR 90s- 100. BP confirmed with manual. Pat [phone]
[2021-10-13] MEDS: JUVEN Smoothie Arginine/Glut./Ca2+Bmb (Juven 19.3pkt) 240ml cup PO SCH ×2 (07:30→12:33)
[2021-10-13] MEDS: losartan 50mg tablet PO SCH (08:00)
[2021-10-13] MEDS: K and/or MAG REPLACEMENT MC SCH ×2 (08:00→20:00)
[2021-10-13] MEDS: lactobacillus rhamnosus 10,000 MMU CELLS/CAPSULE PO SCH ×2 (08:23→20:00)
[2021-10-13] MEDS: pantoprazole 40mg Tablet.DR PO SCH (08:23)
[2021-10-13] MEDS: docusate sod 100mg capsule PO SCH ×2 (08:24→20:00)
[2021-10-13] MEDS: multivitamins, therapeutics tablet PO SCH (08:24)
[2021-10-13] MEDS: insulin Lispro (HumaLOG) vial - multi-dose SQ SCH ×3 (08:31→19:46)
[2021-10-13] MEDS: NUT.TX.GLUC.INTOLER,LAC-FR,SOY (GLUCERNA) 237 ML PO SCH ×3 (08:32→18:00)
[2021-10-13] MEDS ORDERED: normal saline 500ml IV soln 500 ML IV ONE (08:35)
[2021-10-13] MEDS ORDERED: sodium bicarbonate (8.4%) inj. 100 MEQ in sodium chloride 0.45% 900 ML IV SCH (08:40)
[2021-10-13 09:13] LABS: ALBUMIN 2.5 G/DL (3.4-5.0); ANION GAP 15 (8-16); BLOOD UREA NITROGEN 113 MG/DL (7-18); BUN/CREATININE RATIO 27.2 (6.6-38.0); CALCIUM 8.7 MG/DL (8.5-10.1); CHLORIDE 97 MMOL/L (99-107); CREATININE 4.15 MG/DL (0.40-0.90); GLUCOSE 207 MG/DL (70-104); POTASSIUM 4.4 MMOL/L (3.5-5.1); SODIUM 131 MMOL/L (135-145); TOTAL CARBON DIOXIDE 19.4 MMOL/L (24-32); eGFR 10 ML/MIN
[2021-10-13] MEDS: sodium ferric gluc complex inj 125 MG in normal saline 100ml IV soln 90 ML IV SCH ×2 (09:52→11:28)
[2021-10-13] MEDS: metoprolol succinate 25mg (24-HOUR) SR. Tablet PO SCH (10:00)
[2021-10-13] MEDS: sodium bicarbonate (8.4%) inj. 100 MEQ in sodium chloride 0.45% 1,000 ML IV SCH ×2 (11:18→20:59)
--- NOTE | 2021-10-13 13:44 | NUR ---
Page Sent promotional table spacer PAGER ID: [phone] MESSAGE: [phone] [place]. Pt continues to have low BP with map below 60. I gave her a 250 mL NS bolus after the 500 you ordered and started her fluids with no real change. Please advise. Pat [phone]
--- NOTE | 2021-10-13 14:02 | NUR ---
Orders for a 500cc bolus put in per Dr. Pattreson.
[2021-10-13] MEDS ORDERED: normal saline 500ml IV soln 1,000 ML IV ONE (14:05)
--- NOTE | 2021-10-13 15:10 | NUR ---
Comfort care discussed with patient and friend at bedside . Pt did not want that at this time. BP has been low all day continuing to monitor closely. Small boluses temporarily increase map to above 60 but do not work for long. 250 ml Rn bolus was given earlier and fluids started with no real results to speak.
--- NOTE | 2021-10-13 15:10 | NUR ---
Page Sent promotional table spacer PAGER ID: [phone] MESSAGE: [phone] [place]. Pt too painful for orthostatics. Could we maybe give her Toradol? UA sent to lab patient has a bad vaginal yeast infection and incontinent would a kasper be better than a wick ? urine output poor only 100 mL today. Pat 2013
[2021-10-13] MEDS ORDERED: fluconazole 100mg tablet PO ONE (15:25)
[2021-10-13] MEDS ORDERED: traMADol 50MG tablet PO PRN (15:25)
--- NOTE | 2021-10-13 15:50 | NUR ---
patient very painful and refused orthostatics does not want to move
--- NOTE | 2021-10-13 16:14 | NUR ---
kasper inserted 10/13/21 @ 1508
[2021-10-13 16:59] LABS: CLARITY,URINE CLEAR (Clear); COLOR,URINE YELLOW (Yellow); GLUCOSE, URINE NEGATIVE (Neg); KETONES,URINE TRACE mg/dl (Neg); LEUKOCYTE ESTERASE ,URINE NEGATIVE (Neg); NITRITES, URINE NEGATIVE (Neg); OCCULT BLOOD,URINE NEGATIVE (Neg); PROTEIN,URINE NEGATIVE (Neg); UROBILINOGEN,URINE 0.2 E.U/dL (0.2-1.0)
[2021-10-13] MEDS ORDERED: vancomycin/NS 1 GM ADD-VANTAGE 250 ML IV PRN (17:00)
[2021-10-13] MEDS ORDERED: normal saline 1000ml 1,000 ML IVB ONE (17:00)
[2021-10-13 17:04] LABS: UA COLLECTION TYPE STRAIGHT CATH
[2021-10-13] MEDS ORDERED: vancomycin/NS 1 GM ADD-VANTAGE 250 ML IV ONE (17:20)
--- NOTE | 2021-10-13 17:54 | NUR ---
attempted corpak insertion twice and was unable to get it in
--- NOTE | 2021-10-13 18:24 | NUR ---
Problems reprioritized. Patient report given, questions answered & plan of care reviewed with Yuko MORALES. Notified Yuko that diflucan not admin because pharmacy had not brought it up yet.
--- NOTE | 2021-10-13 18:30 | NUR ---
Patient in room PCU 3021. I have received report from Pat MORALES and had the opportunity to ask questions and assume patient care.
[2021-10-13] MEDS: famotidine 20mg tablet PO SCH (20:00)
[2021-10-13] MEDS: atorvastatin 10mg tablet PO SCH (20:26)
[2021-10-13] MEDS: cefepime 1GM/NS ADD-VANTAGE 100 ML IV SCH (20:28)
--- NOTE | 2021-10-13 21:00 | NUR ---
Corpak insertion attempted twice but were unsuccessful. Pt is very resistive.
--- NOTE | 2021-10-13 21:30 | NUR ---
Pt's 2000 meds were non-administered including diflucan. Pt is uncooperative. Attempted 3x on giving the medications but pt refused.
[2021-10-13] MEDS: insulin glargine (Lantus) pen - multi-dose SQ SCH (22:21)
[2021-10-14] MEDS ORDERED: sodium ferric gluc complex inj 125 MG in normal saline 100ml IV soln 100 ML IV SCH (00:42)
[2021-10-14 02:00] VITALS: BP 102/51
[2021-10-14] MEDS ORDERED: VANCOMYCIN LEVEL IV SCH (03:00)
[2021-10-14] MEDS: sodium bicarbonate (8.4%) inj. 100 MEQ in sodium chloride 0.45% 1,000 ML IV SCH ×2 (05:47→07:54)
[2021-10-14 06:00] VITALS: BP 77/42
--- NOTE | 2021-10-14 06:23 | NUR ---
Problems reprioritized. Patient report given, questions answered & plan of care reviewed with Ashkan MORALES.
--- NOTE | 2021-10-14 06:42 | NUR ---
Patient in room PCU 3021. I have received report from Rimma Kuhn RN and had the opportunity to ask questions and assume patient care.
[2021-10-14] MEDS: JUVEN Smoothie Arginine/Glut./Ca2+Bmb (Juven 19.3pkt) 240ml cup PO SCH (07:30)
[2021-10-14] MEDS: cefepime 1GM/NS ADD-VANTAGE 100 ML IV SCH (07:46)
[2021-10-14] MEDS: lactobacillus rhamnosus 10,000 MMU CELLS/CAPSULE PO SCH (08:00)
[2021-10-14] MEDS: famotidine 20mg tablet PO SCH (08:00)
[2021-10-14] MEDS: docusate sod 100mg capsule PO SCH (08:00)
[2021-10-14] MEDS: K and/or MAG REPLACEMENT MC SCH (08:00)
[2021-10-14] MEDS: NUT.TX.GLUC.INTOLER,LAC-FR,SOY (GLUCERNA) 237 ML PO SCH (08:00)
[2021-10-14] MEDS: multivitamins, therapeutics tablet PO SCH (08:00)
--- NOTE | 2021-10-14 08:00 | NUR ---
Patient refused took her PO meds after 2 attempted, also refused the Vascular study . Notified Dr. Sharpe patient still present b/p low. Dr ordered bolus of Normal saline.
--- NOTE | 2021-10-14 08:04 | NUR ---
TF consult: Per documentation, Corpak insertion was attempted twice though unsuccessful as pt is very resistive and confused. Pt also noted to be refusing some meds. Pt continues on CCHO diet w/ low intake, avg 26% x 8 meals and ~ 46% x 6 ONS and Jasper smoothie which meets approximately 58% of est energy needs and 59% of est protein needs. Pt may still benefit from supplemental TF as PO intake impacted by mental status and pt w/ wounds if within plan of care. Recs below if Corpak placement successful in the future. LBM 10/11 receiving routine colace though pt sometimes refuses. Will continue to monitor closely. Recs: 1. Continue CCHO diet as tolerated 2. Jasper smoothie BID, Glucerna TID 3. IF able to place Corpak, Continuous TF using Glucerna 1.2 at 50ml/hr; to adjust depending on pt's PO intake 3. Bowel care per rx 4. Weekly wts Addendum: 10/14/21 at [address] Amended: Links added.
[2021-10-14 08:57] LABS: BASOPHILS % (AUTO) 0.1 % (0-1); EOSINOPHILS % (AUTO) 0.1 % (0-6); HEMATOCRIT 33.5 % (35.0-45.0); HEMOGLOBIN 10.2 g/dl (12.0-16.0); LYMPHOCYTES # (AUTO) 0.8 X10'3 (1.1-4.8); LYMPHOCYTES % (AUTO) 9.2 % (21-51); MEAN CORPUSCULAR HEMOGLOBIN 24.2 PG (27.0-31.0); MEAN CORPUSCULAR HGB CONC 30.5 g/dL (33.0-36.5); MEAN CORPUSCULAR VOLUME 79.6 FL (78-98); MEAN PLATELET VOLUME 7.1 FL (7.4-10.4); MONOCYTES # (AUTO) 0.6 X10'3 (0-0.9); MONOCYTES % (AUTO) 6.4 % (2-12); NEUTROPHILS # (AUTO) 7.6 X10'3 (1.8-7.7); NEUTROPHILS % (AUTO) 84.2 % (42-75); PLATELET COUNT 175 X10'3 (140-440); RED CELL DISTRIBUTION WIDTH 23.6 % (11.5-14.5); WHITE BLOOD COUNT 9.1 X10'3 (4.5-11.0)
[2021-10-14 09:17] LABS: ALBUMIN 2.4 G/DL (3.4-5.0); ANION GAP 18 (8-16); BLOOD UREA NITROGEN 109 MG/DL (7-18); BUN/CREATININE RATIO 23.5 (6.6-38.0); CALCIUM 8.3 MG/DL (8.5-10.1); CHLORIDE 99 MMOL/L (99-107); CREATININE 4.64 MG/DL (0.40-0.90); GLUCOSE 112 MG/DL (70-104); MAGNESIUM 2.6 MG/DL (1.5-2.4); PHOSPHORUS 7.3 MG/DL (2.3-4.5); POTASSIUM 4.7 MMOL/L (3.5-5.1); SODIUM 136 MMOL/L (135-145); TOTAL CARBON DIOXIDE 19.2 MMOL/L (24-32); VANCOMYCIN,RANDOM 13.7 UG/ML; eGFR 9 ML/MIN
[2021-10-14 09:27] LABS: ANISOCYTOSIS 3+; MICROCYTOSIS 1+; PLATELET ESTIMATE NORMAL
[2021-10-14 09:28] LABS: HYPOCHROMASIA 1+
[2021-10-14 09:30] LABS: ELLIPTOCYTES FEW; SCHISTOCYTES FEW
[2021-10-14 09:34] LABS: BURR CELLS FEW
[2021-10-14 11:00] VITALS: BP 83/66
--- NOTE | 2021-10-14 11:26 | NUR ---
Labs report critical labs for: Troponin 1510. was notified via pager. Waiting for the doctor update.
[2021-10-14] MEDS ORDERED: normal saline 500ml IV soln 500 ML IV SCH (11:55)
--- NOTE | 2021-10-14 12:50 | NUR ---
Attempted second time to perform the NGT placement, but fail, patient dropped the O2 level.
[2021-10-14] MEDS ORDERED: vancomycin/NS 1 GM ADD-VANTAGE 250 ML IV ONE (13:15)
--- NOTE | 2021-10-14 13:20 | NUR ---
Patient no present vitals sign, Dr. Sarah was notified. The demise pronounced at 1320.
== END 2021-10-14 15:23 ==
LOC: ER 12:08 → ED HOLD 18:59 → PCU 3S 23:17
PROVIDERS: ADMIT Family Medicine; ATTEND Family Medicine
PROC: 5A09357 Assistance with Respiratory Ventilation, Less than 24 Consecutive Hours, Continuous Positive Airway Pressure (ICD-10-PCS; principal; 2021-10-07)
PROC: 5A09357 Assistance with Respiratory Ventilation, Less than 24 Consecutive Hours, Continuous Positive Airway Pressure (ICD-10-PCS; 2021-10-08)
PROC: 0DB68ZX Excision of Stomach, Via Natural or Artificial Opening Endoscopic, Diagnostic (ICD-10-PCS; 2021-10-08)
PROC: 5A09357 Assistance with Respiratory Ventilation, Less than 24 Consecutive Hours, Continuous Positive Airway Pressure (ICD-10-PCS; 2021-10-09)
PROC: 5A09357 Assistance with Respiratory Ventilation, Less than 24 Consecutive Hours, Continuous Positive Airway Pressure (ICD-10-PCS; 2021-10-10)
PROC: 5A09357 Assistance with Respiratory Ventilation, Less than 24 Consecutive Hours, Continuous Positive Airway Pressure (ICD-10-PCS; 2021-10-11)
PROC: 5A12012 Performance of Cardiac Output, Single, Manual (ICD-10-PCS; 2021-10-12)
DX: I13.2 Hypertensive heart and chronic kidney disease with heart failure and with stage 5 chronic kidney disease, or end stage renal disease (principal); J96.20 Acute and chronic respiratory failure, unspecified whether with hypoxia or hypercapnia; I21.4 Non-ST elevation (NSTEMI) myocardial infarction; I50.23 Acute on chronic systolic (congestive) heart failure; G93.41 Metabolic encephalopathy; K29.71 Gastritis, unspecified, with bleeding; K21.01 Gastro-esophageal reflux disease with esophagitis, with bleeding; N17.9 Acute kidney failure, unspecified; E87.2 Acidosis; Z68.42 Body mass index [BMI] 45.0-49.9, adult; N18.5 Chronic kidney disease, stage 5; L03.116 Cellulitis of left lower limb; L03.115 Cellulitis of right lower limb; I42.0 Dilated cardiomyopathy; Z20.822 Contact with and (suspected) exposure to COVID-19; J44.9 Chronic obstructive pulmonary disease, unspecified; Z66 Do not resuscitate; I46.9 Cardiac arrest, cause unspecified; E11.22 Type 2 diabetes mellitus with diabetic chronic kidney disease; I48.0 Paroxysmal atrial fibrillation; K21.00 Gastro-esophageal reflux disease with esophagitis, without bleeding; D50.0 Iron deficiency anemia secondary to blood loss (chronic); K44.9 Diaphragmatic hernia without obstruction or gangrene; E66.01 Morbid (severe) obesity due to excess calories; G47.33 Obstructive sleep apnea (adult) (pediatric); I95.9 Hypotension, unspecified; R19.5 Other fecal abnormalities; E78.00 Pure hypercholesterolemia, unspecified; E78.5 Hyperlipidemia, unspecified; F41.9 Anxiety disorder, unspecified; K29.70 Gastritis, unspecified, without bleeding; Z79.01 Long term (current) use of anticoagulants; Z79.899 Other long term (current) drug therapy; Z80.41 Family history of malignant neoplasm of ovary; Z82.3 Family history of stroke; Z85.038 Personal history of other malignant neoplasm of large intestine; Z99.3 Dependence on wheelchair; Z79.4 Long term (current) use of insulin
CPT/HCPCS: 36415; 43239; 71045; 76770; 80048; 80053; 80061; 80202; 81003; 82272; 82948; 83036; 83605; 83735; 83880; 84100; 84145; 84484; 85008; 85025; 85610; 86885; 86900; 86901; 87040; 87081; 87635; 88305; 88342; 93005; 93306; 94799; 96374; 96375; 97110; 97161; 97530; 99152; 99285; A4620; C9803; G0378; J0171; J0692; J1250; J1815; J1940; J2020; J2250; J2270; J2405; J2916; J3010; J3370; J3490; J7030; J7040; Q0163